=== PATIENT | male | born 1970 | race African-American/Black ===

== ENCOUNTER 2016-04-28 05:02 | Inpatient (IN) | payer MEDICARE, MEDICAID ==
[~2016-04-28] VITALS: Ht 188 cm; Wt 98.9 kg
[~2016-04-28 05:02] MED LIST: ALBU6.7H INH; ALBU8.5H5 INH; AMLO5TAB2 PO; AMOX400S16 PO; ASPI325T4 PO; CALC-666 PO; CARV3.1212 PO; FAMO20TA37 PO; FOLI-17 PO; FURO-93 PO; FURO20TA3 PO; HYDR-3341 PO; HYDR25TA6 PO; LEVO25TA4 PO; LISI5TAB7 PO; METO25TA35 PO; MULT-750 PO; NICO1PAT4 TD; NITR0.4T SL; OLAN10TA9 PO; OLAN20TA3 PO; OMEP10CA4 PO; OXYB5TAB7 PO; PANT40TA3 PO; SIMV20TA3 PO; SPIR25TA3 PO; SUCR1ORA11 PO; THIA100T6 PO
[2016-04-28] MEDS ORDERED: SODIUM CHLORIDE 0.9% 1,000 ML IV ONE ×2 (05:05→14:33)
[2016-04-28] MEDS ORDERED: SODIUM CHLORIDE FLUSH 10ML SYR IVF ONE (05:30)
[2016-04-28] MEDS ORDERED: ONDANSETRON 2MG/ML, 2ML IVPush ONE ×2 (05:30→08:30)
[2016-04-28] MEDS ORDERED: SODIUM CHLORIDE 0.9% 1,000ML IVBOLUS ONE ×2 (05:30→09:30)
[2016-04-28] MEDS ORDERED: THIAMINE 100 MG in SODIUM CHLORIDE 0.9% 50 ML IVPB ONE (05:30)
[2016-04-28 05:54] LABS: HEMOGLOBIN 12.7 g/dL (13.7-18.0)
[2016-04-28 06:06] LABS: ASPARTATE AMINO TRANSFERASE 33 U/L (15-37); BLOOD UREA NITROGEN 7 mg/dL (7-18)
[2016-04-28] MEDS ORDERED: HALOPERIDOL 5 MG/ML ONE (08:27)
[2016-04-28] MEDS ORDERED: ONDANSETRON 2MG/ML, 2ML ONE (08:27)
[2016-04-28] MEDS ORDERED: HALOPERIDOL 5 MG/ML IVPush ONE (08:30)
[2016-04-28] MEDS ORDERED: LEVOFLOXACIN/PMX 750MG/150ML 150 ML IVPB ONE (14:30)
[2016-04-28] MEDS ORDERED: SODIUM CHLORIDE FLUSH 10ML SYR IVF PRN (15:00)
[2016-04-28] MEDS ORDERED: MORPHINE SULFATE 4 MG/ML, 1ML IVPush PRN (15:30)
[2016-04-28] MEDS ORDERED: NITROGLYCERIN 0.4 MG BOTTLE (25 TABS) SL SCH (15:30)
[2016-04-28] MEDS ORDERED: ONDANSETRON 2MG/ML, 2ML IVP PRN (15:30)
[2016-04-28] MEDS ORDERED: LORazepam 2 MG/ML, 1ML IV PRN ×5 (15:30)
[2016-04-28] MEDS ORDERED: DOCUSATE 100 MG CAPSULE PO PRN (15:30)
[2016-04-28] MEDS ORDERED: ALBUTEROL SULFATE 2.5 MG/3 ML NPPB PRN (16:30)
[2016-04-28] MEDS: SODIUM CHLORIDE 0.9% 1,000 ML IV SCH (18:00)
[2016-04-28] MEDS: AMPICILLIN/SULBACTAM 3 GM in SODIUM CHLORIDE 0.9% 100 ML IV SCH (18:00)
[2016-04-28] MEDS: GUAIFENESIN 200 MG TABLET PO SCH ×2 (18:00→21:00)
[2016-04-28 20:19] VITALS: BP 109/69
[2016-04-28] MEDS: HYDROcodone/APAP 5/325 TABLET PO PRN (22:51)
[2016-04-28] MEDS: OLANZAPINE 10 MG TABLET PO SCH (22:52)
[2016-04-28] MEDS: FAMOTIDINE 20 MG TABLET PO SCH (22:52)
[2016-04-28] MEDS: METOPROLOL TARTRATE 25 MG TABLET PO SCH (22:52)
[2016-04-28] MEDS: SIMVASTATIN 20 MG TABLET PO SCH (22:52)
[2016-04-28] MEDS: ENOXAPARIN 40 MG/0.4 ML SQ SCH (22:53)
[2016-04-29 02:00] VITALS: BP 124/82
[2016-04-29] MEDS: SODIUM CHLORIDE 0.9% 1,000 ML IV SCH (02:22)
[2016-04-29] MEDS: AMPICILLIN/SULBACTAM 3 GM in SODIUM CHLORIDE 0.9% 100 ML IV SCH ×3 (02:22→19:41)
[2016-04-29] MEDS: GUAIFENESIN 200 MG TABLET PO SCH ×4 (06:00→20:15)
[2016-04-29 06:28] LABS: HEMOGLOBIN 10.7 g/dL (13.7-18.0)
[2016-04-29 06:33] LABS: BLOOD UREA NITROGEN 8 mg/dL (7-18)
[2016-04-29 08:16] VITALS: BP 96/54
[2016-04-29 09:00] VITALS: BP 145/90
[2016-04-29] MEDS: METOPROLOL TARTRATE 25 MG TABLET PO SCH ×2 (09:04→20:14)
[2016-04-29] MEDS: FAMOTIDINE 20 MG TABLET PO SCH ×2 (09:04→20:16)
[2016-04-29] MEDS: THIAMINE 100MG TABLET PO SCH (09:04)
[2016-04-29] MEDS: FOLIC ACID 1 MG TABLET PO SCH (09:05)
[2016-04-29] MEDS: AMLODIPINE 5 MG TABLET PO SCH (09:05)
[2016-04-29 14:08] VITALS: BP 130/87
[2016-04-29 19:53] VITALS: BP 116/68
[2016-04-29] MEDS: ENOXAPARIN 40 MG/0.4 ML SQ SCH (20:12)
[2016-04-29] MEDS: SIMVASTATIN 20 MG TABLET PO SCH (20:16)
[2016-04-29] MEDS: OLANZAPINE 10 MG TABLET PO SCH (20:17)
[2016-04-29] MEDS: HYDROcodone/APAP 5/325 TABLET PO PRN (20:42)
[2016-04-30 02:23] VITALS: BP 124/80
[2016-04-30] MEDS: AMPICILLIN/SULBACTAM 3 GM in SODIUM CHLORIDE 0.9% 100 ML IV SCH ×2 (03:21→11:08)
[2016-04-30] MEDS: GUAIFENESIN 200 MG TABLET PO SCH ×2 (05:56→11:00)
[2016-04-30 06:02] LABS: HEMOGLOBIN 11.1 g/dL (13.7-18.0)
[2016-04-30 06:04] LABS: BLOOD UREA NITROGEN 6 mg/dL (7-18)
[2016-04-30 07:37] VITALS: BP 141/93
[2016-04-30] MEDS: FAMOTIDINE 20 MG TABLET PO SCH (07:45)
[2016-04-30] MEDS: FOLIC ACID 1 MG TABLET PO SCH (07:46)
[2016-04-30] MEDS: AMLODIPINE 5 MG TABLET PO SCH (07:46)
[2016-04-30] MEDS: METOPROLOL TARTRATE 25 MG TABLET PO SCH (07:46)
[2016-04-30] MEDS: THIAMINE 100MG TABLET PO SCH (07:47)
[2016-04-30] MEDS ORDERED: METO25TA35 PO (09:14)
[2016-04-30] MEDS ORDERED: AMLO5TAB2 PO (09:14)
[2016-04-30] MEDS ORDERED: OLAN10TA9 PO (09:14)
[2016-04-30] MEDS ORDERED: AMOX1TAB64 PO (09:14)
== END 2016-04-30 15:19 | disposition home or self-care (01) | DRG 177 ==
LOC: ED 08:47 → EDIP 14:34 → 4EST 15:47 → 4WST 23:13 → DCLOUNGE 04-30 15:15
PROVIDERS: ADMIT Internal Medicine; ATTEND Internal Medicine
DX: J69.0 Pneumonitis due to inhalation of food and vomit (principal); J96.01 Acute respiratory failure with hypoxia; F10.129 Alcohol abuse with intoxication, unspecified; I25.10 Atherosclerotic heart disease of native coronary artery without angina pectoris; F32.9 Major depressive disorder, single episode, unspecified; F99 Mental disorder, not otherwise specified; K21.9 Gastro-esophageal reflux disease without esophagitis; Y90.9 Presence of alcohol in blood, level not specified; E11.9 Type 2 diabetes mellitus without complications; I50.9 Heart failure, unspecified; I11.0 Hypertensive heart disease with heart failure; Z82.49 Family history of ischemic heart disease and other diseases of the circulatory system; Z91.19 Patient's noncompliance with other medical treatment and regimen; Z80.9 Family history of malignant neoplasm, unspecified; Z88.8 Allergy status to other drugs, medicaments and biological substances
CPT/HCPCS: 36415; 71010; 80048; 80053; 80307; 83605; 83690; 84145; 85025; 87040; 96365; 96366; 96375; J0295; J1650; J2405; J3411; J1630; J2060; J7030

== ENCOUNTER 2016-05-26 12:26 | Observation (INO) | payer MEDICAID, MEDICARE ==
[~2016-05-26] VITALS: Ht 193 cm; Wt 89.4 kg
[~2016-05-26 12:26] MED LIST changes: +AMOX1TAB64 PO
[2016-05-26 13:28] LABS: HEMOGLOBIN 12.4 g/dL (13.7-18.0)
[2016-05-26 13:34] LABS: BLOOD UREA NITROGEN 10 mg/dL (7-18)
[2016-05-26 13:36] LABS: ACETAMINOPHEN < 2 mcg/mL (10-30)
[2016-05-26 13:49] LABS: DAU SCREEN DISCLAIMER
[2016-05-26] MEDS ORDERED: POLYETHYLENE GLYCOL 17 GM PACKET PO PRN (17:30)
[2016-05-26] MEDS ORDERED: ZIPRASIDONE 20MG CAPSULE PO PRN (17:30)
[2016-05-26 19:36] VITALS: BP 155/90
[2016-05-26] MEDS ORDERED: METOPROLOL TARTRATE 25 MG TABLET PO SCH (21:00)
[2016-05-26] MEDS ORDERED: SIMVASTATIN 20 MG TABLET PO SCH (21:00)
[2016-05-26] MEDS ORDERED: OLANZAPINE 10 MG TABLET PO SCH (21:30)
[2016-05-27] MEDS ORDERED: AMLODIPINE 5 MG TABLET PO SCH (09:00)
[2016-05-27] MEDS ORDERED: OLANZAPINE 10 MG TABLET PO SCH ×2 (09:00)
[2016-05-27] MEDS ORDERED: SENNA/DOCUSATE TABLET PO SCH (09:00)
== END 2016-05-27 00:50 ==
LOC: ED 13:33 → EDIP 17:10 → 3E 19:45
PROVIDERS: ADMIT Hospitalist; ATTEND Hospitalist
DX: R45.851 Suicidal ideations (principal); I10 Essential (primary) hypertension; K21.9 Gastro-esophageal reflux disease without esophagitis; F20.9 Schizophrenia, unspecified; D64.9 Anemia, unspecified; F10.10 Alcohol abuse, uncomplicated; E11.9 Type 2 diabetes mellitus without complications; Z87.891 Personal history of nicotine dependence; Z82.49 Family history of ischemic heart disease and other diseases of the circulatory system; Z80.9 Family history of malignant neoplasm, unspecified; Z91.19 Patient's noncompliance with other medical treatment and regimen
CPT/HCPCS: 36415; 80048; 80307; 80329; 82040; 84439; 84443; 85025; 85610; 99285; G0378; 96374; G0480

== ENCOUNTER 2016-06-18 00:07 | Inpatient (IN) | payer MEDICARE ==
[~2016-06-18] VITALS: Ht 193 cm; Wt 94.0 kg
[2016-06-18] VITALS (11 sets, daily range): BP systolic 116–161; BP diastolic 77–106
[2016-06-18] MEDS ORDERED: SODIUM CHLORIDE 0.9% 1,000ML IVBOLUS ONE (00:30)
[2016-06-18] MEDS ORDERED: LOSA50TA6 PO (00:54)
[2016-06-18 01:12] LABS: ASPARTATE AMINO TRANSFERASE 42 U/L (15-37); BLOOD UREA NITROGEN 11 mg/dL (7-18); IS PT STATUS REG ER OR PRE ER? YES
[2016-06-18 01:14] LABS: ACETAMINOPHEN 4 mcg/mL (10-30)
[2016-06-18 01:27] LABS: DAU SCREEN DISCLAIMER
[2016-06-18] MEDS ORDERED: ASPIRIN 81 MG TABLET CHEW ONE (01:52)
[2016-06-18] MEDS ORDERED: ASPIRIN 81 MG TABLET CHEW PO ONE (02:00)
[2016-06-18] MEDS ORDERED: SODIUM CHLORIDE 0.9% 1,000 ML IV ONE (03:07)
[2016-06-18] MEDS ORDERED: ONDANSETRON 2MG/ML, 2ML IVPush PRN (03:30)
[2016-06-18] MEDS ORDERED: ONDANSETRON 2MG/ML, 2ML IVP PRN (05:00)
[2016-06-18] MEDS ORDERED: MAGNESIUM SULFATE PMX 2GM/50ML 50 ML IV ONE (05:00)
[2016-06-18] MEDS: SODIUM CHLORIDE 0.9% 1,000 ML IV SCH ×3 (06:04→21:29)
[2016-06-18] MEDS: ENOXAPARIN 40 MG/0.4 ML SQ SCH (06:04)
[2016-06-18] MEDS: THIAMINE 100 MG, MVI ADULT 10 ML, FOLIC ACID 1 MG in D5%-0.9% NACL 1,000 ML IV SCH (06:33)
[2016-06-18 07:27] LABS: IS PT STATUS REG ER OR PRE ER? NO
[2016-06-18 12:33] LABS: IS PT STATUS REG ER OR PRE ER? NO
[2016-06-18] MEDS ORDERED: NITROGLYCERIN SINGLE TAB 0.4 MG SL ONE (22:30)
[2016-06-19 04:01] VITALS: BP 143/93
[2016-06-19] MEDS: THIAMINE 100 MG, MVI ADULT 10 ML, FOLIC ACID 1 MG in D5%-0.9% NACL 1,000 ML IV SCH (04:52)
[2016-06-19] MEDS: ENOXAPARIN 40 MG/0.4 ML SQ SCH (04:58)
[2016-06-19 05:53] LABS: ASPARTATE AMINO TRANSFERASE 30 U/L (15-37); BLOOD UREA NITROGEN 4 mg/dL (7-18)
[2016-06-19 06:50] VITALS: BP 154/99
[2016-06-19] MEDS: AMLODIPINE 5 MG TABLET PO SCH (09:05)
[2016-06-19] MEDS: LOSARTAN 50MG TABLET PO SCH (09:05)
[2016-06-19] MEDS: METOPROLOL TARTRATE 25 MG TABLET PO SCH ×2 (09:06→20:49)
[2016-06-19 12:26] VITALS: BP 127/85
[2016-06-19 16:36] VITALS: BP 156/100
[2016-06-19 20:14] VITALS: BP 175/112
[2016-06-19] MEDS: SIMVASTATIN 20 MG TABLET PO SCH (20:49)
[2016-06-19 20:51] VITALS: BP 145/100
[2016-06-20 00:04] VITALS: BP 158/106
[2016-06-20 00:10] VITALS: BP 150/95
[2016-06-20] MEDS: ENOXAPARIN 40 MG/0.4 ML SQ SCH (05:07)
[2016-06-20] MEDS: THIAMINE 100 MG, MVI ADULT 10 ML, FOLIC ACID 1 MG in D5%-0.9% NACL 1,000 ML IV SCH (05:07)
[2016-06-20 07:19] VITALS: BP 125/83
[2016-06-20] MEDS: AMLODIPINE 5 MG TABLET PO SCH (10:14)
[2016-06-20] MEDS: MULTIVITAMIN 1 TABLET PO SCH (10:14)
[2016-06-20] MEDS: FOLIC ACID 1 MG TABLET PO SCH (10:14)
[2016-06-20] MEDS: METOPROLOL TARTRATE 25 MG TABLET PO SCH ×2 (10:14→20:43)
[2016-06-20] MEDS: THIAMINE 100MG TABLET PO SCH (10:14)
[2016-06-20] MEDS: LOSARTAN 50MG TABLET PO SCH (10:14)
[2016-06-20 13:09] VITALS: BP 156/114
[2016-06-20] MEDS ORDERED: FOLI-17 PO (17:50)
[2016-06-20] MEDS ORDERED: MULT1TAB60 PO (17:50)
[2016-06-20] MEDS ORDERED: THIA100T6 PO (17:50)
[2016-06-20] MEDS: OLANZAPINE 10 MG TABLET PO SCH (20:43)
[2016-06-20] MEDS: SIMVASTATIN 20 MG TABLET PO SCH (20:43)
[2016-06-20 21:00] VITALS: BP 163/113
[2016-06-21] MEDS ORDERED: hydrALAzine 20 MG/ML, 1ML IV PRN (01:30)
[2016-06-21] MEDS ORDERED: CALCIUM CARBONATE 500 MG TAB.CHEW PO PRN (01:30)
[2016-06-21 02:00] VITALS: BP 163/121
[2016-06-21] MEDS: FAMOTIDINE 20 MG TABLET PO SCH ×3 (02:00→21:30)
[2016-06-21 04:17] VITALS: BP 125/67
[2016-06-21 07:26] VITALS: BP 128/82
[2016-06-21] MEDS: AMLODIPINE 5 MG TABLET PO SCH (09:44)
[2016-06-21] MEDS: FOLIC ACID 1 MG TABLET PO SCH (09:44)
[2016-06-21] MEDS: LOSARTAN 50MG TABLET PO SCH (09:44)
[2016-06-21] MEDS: THIAMINE 100MG TABLET PO SCH (09:44)
[2016-06-21] MEDS: METOPROLOL TARTRATE 25 MG TABLET PO SCH ×2 (09:44→21:30)
[2016-06-21] MEDS: MULTIVITAMIN 1 TABLET PO SCH (09:45)
[2016-06-21] MEDS: ENOXAPARIN 40 MG/0.4 ML SQ SCH (09:45)
[2016-06-21 13:45] VITALS: BP 125/85
[2016-06-21] MEDS: SIMVASTATIN 20 MG TABLET PO SCH (21:29)
[2016-06-21] MEDS: OLANZAPINE 10 MG TABLET PO SCH (21:30)
[2016-06-21 21:31] VITALS: BP 152/103
[2016-06-22 02:41] VITALS: BP 121/80
[2016-06-22 07:41] VITALS: BP 121/90
[2016-06-22 09:00] VITALS: BP 107/68
[2016-06-22] MEDS: FAMOTIDINE 20 MG TABLET PO SCH ×2 (09:02→21:34)
[2016-06-22] MEDS: METOPROLOL TARTRATE 25 MG TABLET PO SCH ×2 (09:02→21:34)
[2016-06-22] MEDS: AMLODIPINE 5 MG TABLET PO SCH (09:02)
[2016-06-22] MEDS: ENOXAPARIN 40 MG/0.4 ML SQ SCH (09:02)
[2016-06-22] MEDS: MULTIVITAMIN 1 TABLET PO SCH (09:02)
[2016-06-22] MEDS: THIAMINE 100MG TABLET PO SCH (09:02)
[2016-06-22] MEDS: LOSARTAN 50MG TABLET PO SCH (09:02)
[2016-06-22] MEDS: FOLIC ACID 1 MG TABLET PO SCH (09:02)
[2016-06-22 15:45] VITALS: BP 128/81
[2016-06-22 20:12] VITALS: BP 114/76
[2016-06-22] MEDS: OLANZAPINE 10 MG TABLET PO SCH (21:35)
[2016-06-22] MEDS: SIMVASTATIN 20 MG TABLET PO SCH (21:36)
[2016-06-23 08:00] VITALS: BP 107/72
[2016-06-23] MEDS: LOSARTAN 50MG TABLET PO SCH (09:37)
[2016-06-23] MEDS: ENOXAPARIN 40 MG/0.4 ML SQ SCH (09:37)
[2016-06-23] MEDS: FAMOTIDINE 20 MG TABLET PO SCH ×2 (09:37→21:37)
[2016-06-23] MEDS: FOLIC ACID 1 MG TABLET PO SCH (09:37)
[2016-06-23] MEDS: THIAMINE 100MG TABLET PO SCH (09:37)
[2016-06-23] MEDS: AMLODIPINE 5 MG TABLET PO SCH (09:37)
[2016-06-23] MEDS: METOPROLOL TARTRATE 25 MG TABLET PO SCH ×2 (09:38→21:40)
[2016-06-23] MEDS: MULTIVITAMIN 1 TABLET PO SCH (09:38)
[2016-06-23 16:52] VITALS: BP 117/81
[2016-06-23 19:35] VITALS: BP 95/65
[2016-06-23 21:33] VITALS: BP 138/77
[2016-06-23] MEDS: SIMVASTATIN 20 MG TABLET PO SCH (21:37)
[2016-06-23] MEDS: OLANZAPINE 10 MG TABLET PO SCH (21:37)
[2016-06-24 07:52] VITALS: BP 116/82
[2016-06-24] MEDS: ENOXAPARIN 40 MG/0.4 ML SQ SCH (08:25)
[2016-06-24] MEDS: FOLIC ACID 1 MG TABLET PO SCH (08:25)
[2016-06-24] MEDS: FAMOTIDINE 20 MG TABLET PO SCH ×2 (08:25→21:10)
[2016-06-24] MEDS: METOPROLOL TARTRATE 25 MG TABLET PO SCH ×2 (08:25→21:10)
[2016-06-24] MEDS: MULTIVITAMIN 1 TABLET PO SCH (08:26)
[2016-06-24] MEDS: THIAMINE 100MG TABLET PO SCH (08:26)
[2016-06-24] MEDS: AMLODIPINE 5 MG TABLET PO SCH (08:26)
[2016-06-24] MEDS: LOSARTAN 50MG TABLET PO SCH (09:59)
[2016-06-24 20:03] VITALS: BP 129/88
[2016-06-24] MEDS: SIMVASTATIN 20 MG TABLET PO SCH (21:10)
[2016-06-24] MEDS: OLANZAPINE 10 MG TABLET PO SCH (21:10)
[2016-06-25 07:23] VITALS: BP 113/76
== END 2016-06-25 08:10 | DRG 917 ==
LOC: ED 00:37 → EDIP 03:07 → 5SO 04:31 → 4EST 22:50 → 3E 06-22 14:30
PROVIDERS: ADMIT Internal Medicine; ATTEND Internal Medicine
DX: T46.5X2A Poisoning by other antihypertensive drugs, intentional self-harm, initial encounter (principal); G92 Toxic encephalopathy; I50.22 Chronic systolic (congestive) heart failure; I42.9 Cardiomyopathy, unspecified; E78.5 Hyperlipidemia, unspecified; F10.220 Alcohol dependence with intoxication, uncomplicated; F15.10 Other stimulant abuse, uncomplicated; F20.9 Schizophrenia, unspecified; I11.0 Hypertensive heart disease with heart failure; J45.909 Unspecified asthma, uncomplicated; K21.9 Gastro-esophageal reflux disease without esophagitis; F32.9 Major depressive disorder, single episode, unspecified; T46.1X2A Poisoning by calcium-channel blockers, intentional self-harm, initial encounter; Y92.89 Other specified places as the place of occurrence of the external cause; Z79.899 Other long term (current) drug therapy; Z88.8 Allergy status to other drugs, medicaments and biological substances; Z71.51 Drug abuse counseling and surveillance of drug abuser
CPT/HCPCS: 36415; 71010; 80053; 80307; 80329; 81003; 83735; 84100; 84484; 85025; 93005; 96360; J1650; J2405; J3411; J7042; G0480; J0360; J3475; J7030

== ENCOUNTER 2016-07-07 13:53 | Observation (INO) | payer MEDICARE, MEDICAID ==
[~2016-07-07] VITALS: Ht 190.5 cm; Wt 105.0 kg
[~2016-07-07 13:53] MED LIST changes: +LOSA50TA6 PO; +MULT1TAB60 PO
[2016-07-07 14:45] LABS: ASPARTATE AMINO TRANSFERASE 34 U/L (15-37); BLOOD UREA NITROGEN 10 mg/dL (7-18)
[2016-07-07 14:48] LABS: ACETAMINOPHEN < 2 mcg/mL (10-30)
[2016-07-07 18:03] LABS: DAU SCREEN DISCLAIMER
[2016-07-07] MEDS ORDERED: NITROGLYCERIN 0.4 MG BOTTLE (25 TABS) SL SCH (23:30)
[2016-07-07] MEDS ORDERED: LORazepam 1MG TABLET PO PRN (23:30)
[2016-07-07] MEDS ORDERED: ZIPRASIDONE 20 MG INJ IM PRN (23:30)
[2016-07-07] MEDS ORDERED: ONDANSETRON ODT 4 MG PO PRN (23:30)
[2016-07-07] MEDS ORDERED: ACETAMINOPHEN 325 MG TABLET PO PRN (23:30)
[2016-07-07] MEDS ORDERED: HALOPERIDOL 5 MG TABLET PO PRN (23:30)
[2016-07-07] MEDS ORDERED: METOPROLOL TARTRATE 50 MG TABLET ONE (23:50)
[2016-07-07] MEDS: METOPROLOL TARTRATE 25 MG TABLET PO SCH (23:55)
[2016-07-08] MEDS: ONDANSETRON 2MG/ML, 2ML IM PRN ×2 (02:25→09:17)
[2016-07-08 07:47] VITALS: BP 165/91
[2016-07-08] MEDS: THIAMINE 100MG TABLET PO SCH (08:45)
[2016-07-08] MEDS: MULTIVITAMIN 1 TABLET PO SCH (08:45)
[2016-07-08] MEDS: FOLIC ACID 1 MG TABLET PO SCH (08:45)
[2016-07-08] MEDS: METOPROLOL TARTRATE 25 MG TABLET PO SCH ×2 (08:46→21:22)
[2016-07-08] MEDS: LOSARTAN 50MG TABLET PO SCH (08:46)
[2016-07-08] MEDS: AMLODIPINE 5 MG TABLET PO SCH (08:46)
[2016-07-08] MEDS ORDERED: DEXTROSE 4 GM TAB.CHEW PO PRN (13:30)
[2016-07-08] MEDS ORDERED: DEXTROSE 50%, 50ML SYRINGE IVPush PRN (13:30)
[2016-07-08] MEDS ORDERED: GLUCAGON 1 MG IM PRN (13:30)
[2016-07-08 16:19] VITALS: BP 126/92
[2016-07-08 19:38] VITALS: BP 158/104
[2016-07-08] MEDS ORDERED: SODIUM CHLORIDE FLUSH 10ML SYR IVF SCH (21:00)
[2016-07-08] MEDS ORDERED: SIMVASTATIN 20 MG TABLET PO SCH (21:00)
[2016-07-08] MEDS ORDERED: OLANZAPINE 10 MG TABLET PO SCH (21:00)
[2016-07-09 08:30] VITALS: BP 116/79
[2016-07-09] MEDS: THIAMINE 100MG TABLET PO SCH (08:57)
[2016-07-09] MEDS: MULTIVITAMIN 1 TABLET PO SCH (08:57)
[2016-07-09] MEDS: METOPROLOL TARTRATE 25 MG TABLET PO SCH (08:58)
[2016-07-09] MEDS: LOSARTAN 50MG TABLET PO SCH (08:58)
[2016-07-09] MEDS: AMLODIPINE 5 MG TABLET PO SCH (08:59)
[2016-07-09] MEDS: FOLIC ACID 1 MG TABLET PO SCH (09:00)
== END 2016-07-09 12:42 | disposition short-term general hospital (02) ==
LOC: ED 18:07 → EDIP 22:21 → 3E 07-08 00:03
PROVIDERS: ADMIT Hospitalist; ATTEND Hospitalist
DX: R45.851 Suicidal ideations (principal); F20.9 Schizophrenia, unspecified; E11.649 Type 2 diabetes mellitus with hypoglycemia without coma; F10.220 Alcohol dependence with intoxication, uncomplicated; F33.9 Major depressive disorder, recurrent, unspecified; E78.5 Hyperlipidemia, unspecified; K21.9 Gastro-esophageal reflux disease without esophagitis; I50.20 Unspecified systolic (congestive) heart failure; I11.0 Hypertensive heart disease with heart failure; I25.10 Atherosclerotic heart disease of native coronary artery without angina pectoris; I45.81 Long QT syndrome; I42.9 Cardiomyopathy, unspecified; F15.90 Other stimulant use, unspecified, uncomplicated; Z91.19 Patient's noncompliance with other medical treatment and regimen; Z87.19 Personal history of other diseases of the digestive system; Z91.5 Personal history of self-harm
CPT/HCPCS: 36415; 80053; 80307; 80329; 82962; 85025; 93005; 96372; 99285; G0378; J2405; G0480

== ENCOUNTER 2016-08-07 20:33 | Observation (INO) | payer MEDICARE, MEDICAID ==
[~2016-08-07] VITALS: Ht 193 cm; Wt 97.0 kg
[2016-08-07 21:31] LABS: BLOOD UREA NITROGEN 9 mg/dL (7-18)
[2016-08-07 21:34] LABS: ASPARTATE AMINO TRANSFERASE 55 U/L (15-37)
[2016-08-07 21:36] LABS: ACETAMINOPHEN < 2 mcg/mL (10-30)
[2016-08-07 21:53] LABS: DAU SCREEN DISCLAIMER
[2016-08-08] MEDS ORDERED: BISACODYL 10 MG SUPP PR PRN (10:00)
[2016-08-08] MEDS ORDERED: ONDANSETRON ODT 4 MG PO PRN (10:00)
[2016-08-08] MEDS ORDERED: POLYETHYLENE GLYCOL 17 GM PACKET PO PRN (10:00)
[2016-08-08] MEDS ORDERED: DOCUSATE 100 MG CAPSULE PO PRN (10:00)
[2016-08-08] MEDS ORDERED: ACETAMINOPHEN 325 MG TABLET PO PRN (10:00)
[2016-08-08] MEDS ORDERED: ALBUTEROL/IPRATROPIUM 2.5MG/0.5MG, 3 ML NEB PRN (10:00)
[2016-08-08] MEDS: METOPROLOL TARTRATE 25 MG TABLET PO SCH ×2 (15:19→21:00)
[2016-08-08] MEDS: LOSARTAN 50MG TABLET PO SCH (15:20)
[2016-08-08] MEDS: AMLODIPINE 5 MG TABLET PO SCH (15:20)
[2016-08-08] MEDS ORDERED: THIAMINE 100MG TABLET ONE (15:23)
[2016-08-08] MEDS: THIAMINE 100MG TABLET PO SCH (15:25)
[2016-08-08] MEDS: OLANZAPINE 5 MG TABLET PO SCH ×2 (15:25→21:00)
[2016-08-08] MEDS: FOLIC ACID 1 MG TABLET PO SCH (15:25)
[2016-08-08] MEDS: MULTIVITAMIN 1 TABLET PO SCH (15:25)
[2016-08-08] MEDS: NICOTINE 14MG/24 HR PATCH.TD24 TD SCH (17:30)
[2016-08-08] MEDS: SIMVASTATIN 20 MG TABLET PO SCH (21:00)
[2016-08-09 03:07] VITALS: BP 143/95
[2016-08-09 07:43] VITALS: BP 116/80
[2016-08-09] MEDS: OLANZAPINE 5 MG TABLET PO SCH ×2 (10:03→20:44)
[2016-08-09] MEDS: LOSARTAN 50MG TABLET PO SCH (10:03)
[2016-08-09] MEDS: FOLIC ACID 1 MG TABLET PO SCH (10:03)
[2016-08-09] MEDS: MULTIVITAMIN 1 TABLET PO SCH (10:04)
[2016-08-09] MEDS: METOPROLOL TARTRATE 25 MG TABLET PO SCH ×2 (10:04→20:44)
[2016-08-09] MEDS: AMLODIPINE 5 MG TABLET PO SCH (10:04)
[2016-08-09] MEDS: THIAMINE 100MG TABLET PO SCH (10:04)
[2016-08-09] MEDS: NICOTINE 14MG/24 HR PATCH.TD24 TD SCH (16:53)
[2016-08-09 19:32] VITALS: BP 111/73
[2016-08-09] MEDS: SIMVASTATIN 20 MG TABLET PO SCH (20:44)
[2016-08-10 08:23] VITALS: BP 111/79
[2016-08-10] MEDS: FOLIC ACID 1 MG TABLET PO SCH (09:00)
[2016-08-10] MEDS: LOSARTAN 50MG TABLET PO SCH (09:34)
[2016-08-10] MEDS: MULTIVITAMIN 1 TABLET PO SCH (09:34)
[2016-08-10] MEDS: AMLODIPINE 5 MG TABLET PO SCH (09:34)
[2016-08-10] MEDS: THIAMINE 100MG TABLET PO SCH (09:34)
[2016-08-10] MEDS: OLANZAPINE 5 MG TABLET PO SCH ×2 (09:34→20:48)
[2016-08-10] MEDS: METOPROLOL TARTRATE 25 MG TABLET PO SCH ×2 (09:34→20:48)
[2016-08-10 19:49] VITALS: BP 130/87
[2016-08-10] MEDS: SIMVASTATIN 20 MG TABLET PO SCH (20:48)
[2016-08-11 08:25] VITALS: BP 130/84
[2016-08-11] MEDS: AMLODIPINE 5 MG TABLET PO SCH (08:56)
[2016-08-11] MEDS: METOPROLOL TARTRATE 25 MG TABLET PO SCH ×2 (08:56→20:10)
[2016-08-11] MEDS: THIAMINE 100MG TABLET PO SCH (08:56)
[2016-08-11] MEDS: FOLIC ACID 1 MG TABLET PO SCH (08:56)
[2016-08-11] MEDS: LOSARTAN 50MG TABLET PO SCH (08:57)
[2016-08-11] MEDS: OLANZAPINE 5 MG TABLET PO SCH ×2 (08:57→20:10)
[2016-08-11] MEDS: MULTIVITAMIN 1 TABLET PO SCH (09:00)
[2016-08-11 20:01] VITALS: BP 143/83
[2016-08-11] MEDS: SIMVASTATIN 20 MG TABLET PO SCH (20:10)
[2016-08-11 21:42] VITALS: BP 122/82
[2016-08-12] MEDS: THIAMINE 100MG TABLET PO SCH (07:54)
[2016-08-12] MEDS: METOPROLOL TARTRATE 25 MG TABLET PO SCH ×2 (07:54→20:38)
[2016-08-12] MEDS: MULTIVITAMIN 1 TABLET PO SCH (07:54)
[2016-08-12] MEDS: OLANZAPINE 5 MG TABLET PO SCH ×2 (07:54→20:37)
[2016-08-12] MEDS: LOSARTAN 50MG TABLET PO SCH (07:54)
[2016-08-12] MEDS: FOLIC ACID 1 MG TABLET PO SCH (07:55)
[2016-08-12] MEDS: AMLODIPINE 5 MG TABLET PO SCH (07:55)
[2016-08-12 08:13] VITALS: BP 114/76
[2016-08-12 19:53] VITALS: BP 117/78
[2016-08-12] MEDS: SIMVASTATIN 20 MG TABLET PO SCH (20:38)
[2016-08-13] MEDS: METOPROLOL TARTRATE 25 MG TABLET PO SCH (07:38)
[2016-08-13] MEDS: LOSARTAN 50MG TABLET PO SCH (07:38)
[2016-08-13] MEDS: FOLIC ACID 1 MG TABLET PO SCH (07:38)
[2016-08-13] MEDS: THIAMINE 100MG TABLET PO SCH (07:38)
[2016-08-13] MEDS: MULTIVITAMIN 1 TABLET PO SCH (07:38)
[2016-08-13] MEDS: AMLODIPINE 5 MG TABLET PO SCH (07:38)
[2016-08-13] MEDS: OLANZAPINE 5 MG TABLET PO SCH (07:39)
[2016-08-13 08:31] VITALS: BP 112/74
== END 2016-08-13 18:31 ==
LOC: ED 23:15 → EDIP 08-08 09:44 → 3E 08-09 03:02
PROVIDERS: ADMIT Family Medicine; ATTEND Family Medicine
DX: R45.851 Suicidal ideations (principal); F20.9 Schizophrenia, unspecified; R44.0 Auditory hallucinations; R00.0 Tachycardia, unspecified; F33.9 Major depressive disorder, recurrent, unspecified; I11.0 Hypertensive heart disease with heart failure; I50.20 Unspecified systolic (congestive) heart failure; E78.5 Hyperlipidemia, unspecified; K21.9 Gastro-esophageal reflux disease without esophagitis; I42.9 Cardiomyopathy, unspecified; I25.10 Atherosclerotic heart disease of native coronary artery without angina pectoris; F15.90 Other stimulant use, unspecified, uncomplicated; F10.220 Alcohol dependence with intoxication, uncomplicated; E11.9 Type 2 diabetes mellitus without complications; F17.200 Nicotine dependence, unspecified, uncomplicated; I25.2 Old myocardial infarction; J45.909 Unspecified asthma, uncomplicated; Z87.19 Personal history of other diseases of the digestive system; Z91.19 Patient's noncompliance with other medical treatment and regimen; Z91.5 Personal history of self-harm
CPT/HCPCS: 36415; 80053; 80307; 80329; 85025; 93005; 99285; G0378; G0480

== ENCOUNTER 2016-09-16 19:27 | Inpatient (IN) | payer OTHER, MEDICARE, MEDICAID ==
[~2016-09-16] VITALS: Ht 193 cm; Wt 99.7 kg
[2016-09-16] MEDS ORDERED: SODIUM CHLORIDE 0.9% 1,000 ML IV ONE (19:34)
[2016-09-16] MEDS ORDERED: KETOROLAC 30 MG/1 ML ONE (19:41)
[2016-09-16] MEDS ORDERED: LORazepam 2 MG/ML, 1ML ONE (19:41)
[2016-09-16 19:56] LABS: HEMATOCRIT 44.6 % (39.2-51.8); HEMOGLOBIN 14.4 g/dL (13.7-18.0); WHITE BLOOD COUNT 4.8 x10^3/uL (3.4-10)
[2016-09-16 19:57] LABS: DIFF TOTAL CELLS COUNTED 100 CELL DIFF
[2016-09-16] MEDS ORDERED: SODIUM CHLORIDE 0.9% 1,000ML IVBOLUS ONE (20:00)
[2016-09-16] MEDS ORDERED: LORazepam 2 MG/ML, 1ML IVPush ONE (20:00)
[2016-09-16] MEDS ORDERED: KETOROLAC 30 MG/1 ML IVPush ONE (20:00)
[2016-09-16] MEDS ORDERED: SODIUM CHLORIDE FLUSH 10ML SYR IVF ONE (20:00)
[2016-09-16 20:02] LABS: BLOOD UREA NITROGEN 4 mg/dL (7-18)
[2016-09-16 20:07] LABS: IS PT STATUS REG ER OR PRE ER? YES
[2016-09-16 20:15] LABS: VERIFY COUNTS? YES
[2016-09-16] MEDS ORDERED: LABETALOL 5MG/ML, 20ML ONE (20:39)
[2016-09-16] MEDS ORDERED: LABETALOL 5MG/ML, 20ML IVPush ONE (21:00)
[2016-09-16 22:27] LABS: IS PT STATUS REG ER OR PRE ER? YES
[2016-09-16] MEDS ORDERED: METHOCARBAMOL 1,000 MG in DEXTROSE 5% 100 ML IV ONE (23:00)
[2016-09-16] MEDS ORDERED: hydrALAzine 20 MG/ML, 1ML IV ONE (23:00)
[2016-09-16] MEDS ORDERED: hydrALAzine 20 MG/ML, 1ML ONE (23:10)
[2016-09-17 00:14] VITALS: BP 138/93
[2016-09-17] MEDS ORDERED: MAALOX/HYOSCYAMINE/LIDOCAINE 45 ML BTL PO ONE (01:00)
[2016-09-17] MEDS ORDERED: ONDANSETRON 2MG/ML, 2ML IVPush PRN (04:00)
[2016-09-17] MEDS ORDERED: ACETAMINOPHEN 325 MG TABLET PO PRN (04:00)
[2016-09-17 05:03] VITALS: BP 120/84
[2016-09-17 08:28] VITALS: BP 125/69
[2016-09-17] MEDS: ENOXAPARIN 40 MG/0.4 ML SQ SCH (08:28)
[2016-09-17] MEDS ORDERED: KETOROLAC 30 MG/1 ML IVPush PRN (13:00)
[2016-09-17] MEDS ORDERED: KETOROLAC 30 MG/1 ML IVPush SCH (13:00)
[2016-09-17 15:03] VITALS: BP 147/94
[2016-09-17] MEDS: AMLODIPINE 5 MG TABLET PO SCH (16:52)
[2016-09-17] MEDS: FOLIC ACID 1 MG TABLET PO SCH (16:52)
[2016-09-17 20:00] VITALS: BP 137/93
[2016-09-17] MEDS: FAMOTIDINE 20 MG TABLET PO SCH (20:56)
[2016-09-17] MEDS: METOPROLOL TARTRATE 25 MG TABLET PO SCH (20:56)
[2016-09-17] MEDS ORDERED: SIMVASTATIN 20 MG TABLET PO SCH (21:00)
[2016-09-17] MEDS ORDERED: OLANZAPINE 10 MG TABLET PO SCH (21:00)
[2016-09-18 02:00] VITALS: BP 126/77
[2016-09-18] MEDS ORDERED: ASPIRIN 81 MG TABLET EC PO SCH (06:00)
[2016-09-18 06:17] LABS: HEMATOCRIT 41.8 % (39.2-51.8); HEMOGLOBIN 13.4 g/dL (13.7-18.0); WHITE BLOOD COUNT 4.6 x10^3/uL (3.4-10)
[2016-09-18 06:29] LABS: BLOOD UREA NITROGEN 10 mg/dL (7-18)
[2016-09-18 07:23] VITALS: BP 136/88
[2016-09-18] MEDS: METOPROLOL TARTRATE 25 MG TABLET PO SCH (08:15)
[2016-09-18] MEDS: FOLIC ACID 1 MG TABLET PO SCH (08:15)
[2016-09-18] MEDS: ENOXAPARIN 40 MG/0.4 ML SQ SCH (08:15)
[2016-09-18] MEDS: AMLODIPINE 5 MG TABLET PO SCH (08:16)
[2016-09-18] MEDS: FAMOTIDINE 20 MG TABLET PO SCH (08:16)
[2016-09-18] MEDS ORDERED: THIAMINE 100MG TABLET PO SCH (09:00)
[2016-09-18] MEDS ORDERED: LOSARTAN 50MG TABLET PO SCH (09:00)
[2016-09-18] MEDS ORDERED: MULTIVITAMIN 1 TABLET PO SCH (09:00)
[2016-09-18] MEDS ORDERED: LOSA50TA6 PO (09:22)
[2016-09-18] MEDS ORDERED: METO25TA35 PO (09:22)
[2016-09-18] MEDS ORDERED: HYDR-3341 PO (09:22)
[2016-09-18] MEDS ORDERED: AMLO5TAB2 PO (09:22)
[2016-09-18] MEDS ORDERED: SIMV20TA3 PO (09:22)
[2016-09-18] MEDS ORDERED: OLAN10TA9 PO (09:22)
[2016-09-18] MEDS ORDERED: METO25TA9 PO (10:39)
== END 2016-09-18 11:47 | disposition home or self-care (01) | DRG 392 ==
LOC: ED 19:58 → EDIP 22:43 → 5SO 23:38
PROVIDERS: ADMIT Internal Medicine; ATTEND Internal Medicine
DX: K21.9 Gastro-esophageal reflux disease without esophagitis (principal); I50.32 Chronic diastolic (congestive) heart failure; I42.9 Cardiomyopathy, unspecified; I11.0 Hypertensive heart disease with heart failure; I25.10 Atherosclerotic heart disease of native coronary artery without angina pectoris; F14.10 Cocaine abuse, uncomplicated; F10.10 Alcohol abuse, uncomplicated; E78.5 Hyperlipidemia, unspecified; F99 Mental disorder, not otherwise specified; I25.2 Old myocardial infarction; Z91.14 Patient's other noncompliance with medication regimen; Z72.0 Tobacco use; Z71.6 Tobacco abuse counseling; Z91.5 Personal history of self-harm
CPT/HCPCS: 36415; 71010; 80048; 82040; 83735; 84484; 85025; 93005; 93306; 96361; 96365; 96375; J1650; J1885; J0360; J2060; J2800; J7030

== ENCOUNTER 2016-09-21 22:41 | Emergency (ER) | payer MEDICAID, MEDICARE, OTHER ==
[~2016-09-21] VITALS: Ht 193 cm; Wt 100.0 kg
[~2016-09-21 22:41] MED LIST changes: +METO25TA9 PO; +OLANZAPINE 10 MG TABLET PO ONE
[2016-09-21] MEDS ORDERED: RISP3TAB3 PO (23:02)
[2016-09-21] MEDS ORDERED: TRAZ50TA18 PO (23:02)
[2016-09-21 23:30] LABS: HEMATOCRIT 41.5 % (39.2-51.8); HEMOGLOBIN 13.2 g/dL (13.7-18.0); WHITE BLOOD COUNT 4.5 x10^3/uL (3.4-10)
[2016-09-21 23:43] LABS: ASPARTATE AMINO TRANSFERASE 83 U/L (15-37); BLOOD UREA NITROGEN 12 mg/dL (7-18)
[2016-09-21 23:45] LABS: ACETAMINOPHEN < 2 mcg/mL (10-30)
[2016-09-22 04:50] VITALS: BP 128/75
== END 2016-09-22 04:53 | disposition home or self-care (01) ==
LOC: ED 09-22 04:47
DX: F10.229 Alcohol dependence with intoxication, unspecified (principal); F32.9 Major depressive disorder, single episode, unspecified; F17.200 Nicotine dependence, unspecified, uncomplicated; I11.0 Hypertensive heart disease with heart failure; I50.9 Heart failure, unspecified; J45.909 Unspecified asthma, uncomplicated; K22.6 Gastro-esophageal laceration-hemorrhage syndrome; I25.2 Old myocardial infarction; E11.9 Type 2 diabetes mellitus without complications; Z88.8 Allergy status to other drugs, medicaments and biological substances
CPT/HCPCS: 36415; 80053; 80307; 80329; 85025; 99284; G0480

== ENCOUNTER 2017-11-13 19:00 | Inpatient (IN) | payer MEDICARE, MEDICAID ==
[~2017-11-13] VITALS: Ht 188 cm; Wt 95.3 kg
[~2017-11-13 19:00] MED LIST changes: -AMLO5TAB2 PO; +AMLO5TAB7 PO; +ASPI325T17 PO; -ASPI325T4 PO; -LOSA50TA6 PO; +LOSA50TA7 PO; +METO-282 PO; -METO25TA9 PO; +NICO-486 TD; -NICO1PAT4 TD; -OLANZAPINE 10 MG TABLET PO ONE; +RISP3TAB3 PO; -SPIR25TA3 PO; +SPIR25TA5 PO; -THIA100T6 PO; +THIA100T67 PO; +TRAZ-136 PO
[2017-11-13 19:43] LABS: BASOPHILS # (AUTO) 0.02 x10^3/uL (0-0.1); BASOPHILS % (AUTO) 0 % (0-1); EOSINOPHILS # (AUTO) 0.03 x10^3/uL (0-0.4); EOSINOPHILS % (AUTO) 1 % (1-7); LYMPHOCYTES # (AUTO) 1.16 x10^3/uL (1-3.4); LYMPHOCYTES % (AUTO) 27 % (22-44); MD NO; MEAN CORPUSCULAR HEMOGLOBIN 27.7 pg (27.5-34.5); MEAN CORPUSCULAR HGB CONC 32.8 g/dL (33.2-36.2); MEAN CORPUSCULAR VOLUME 84.4 fL (81-97); MEAN PLATELET VOLUME 8.5 fL (7.4-10.4); MONOCYTES # (AUTO) 0.38 x10^3/uL (0.2-0.8); MONOCYTES % (AUTO) 9 % (2-9); NEUTROPHILS # (AUTO) 2.73 x10^3/uL (1.8-6.8); NEUTROPHILS % (AUTO) 63 % (42-75); PLATELET COUNT 188 x10^3/uL (130-400); RED BLOOD COUNT 4.17 x10^6/uL (4.38-5.82)
[2017-11-13 19:54] LABS: ALBUMIN 3.3 g/dL (3.4-5.0); ANION GAP 14 mmol/L (5-15); CALCIUM 7.9 mg/dL (8.5-10.1); CHLORIDE 102 mmol/L (98-107)
[2017-11-13] MEDS ORDERED: THIAMINE 100 MG/ML, 2ML ONE (23:43)
[2017-11-14] MEDS ORDERED: THIAMINE 100 MG/ML, 2ML IM ONE
[2017-11-14] MEDS ORDERED: ZIPRASIDONE 20 MG INJ IM ONE ×3 (01:13→02:00)
[2017-11-14] MEDS ORDERED: DIPHENHYDRAMINE 50 MG/ML, 1ML IM ONE (02:30)
[2017-11-14] MEDS ORDERED: DIPHENHYDRAMINE 50 MG/ML, 1ML ONE (02:31)
[2017-11-14] MEDS ORDERED: LORazepam 2 MG/ML, 1ML ONE (02:55)
[2017-11-14] MEDS ORDERED: SODIUM CHLORIDE 0.9% 1,000ML IVBOLUS ONE (03:00)
[2017-11-14] MEDS ORDERED: LORazepam 2 MG/ML, 1ML IVPush ONE (03:00)
[2017-11-14] MEDS ORDERED: DIPHENHYDRAMINE 50 MG/ML, 1ML IVPush ONE (03:00)
[2017-11-14 05:27] LABS: AMPHETAMINE SCREEN, URINE Negative (Negative); BARBITURATE SCREEN, URINE Negative (Negative); BENZODIAZEPINE SCREEN, URINE Negative (Negative); CANNABINOID SCREEN, URINE Negative (Negative); COCAINE SCREEN, URINE Negative (Negative); METHADONE SCREEN, URINE Negative (Negative); OPIATE SCREEN, URINE Negative (Negative)
[2017-11-14] MEDS ORDERED: SODIUM CHLORIDE 0.9% 1,000 ML IV ONE (07:46)
[2017-11-14] MEDS ORDERED: PROPOFOL 100 ML IV PRN ×2 (07:59→08:00)
[2017-11-14] MEDS ORDERED: SUCCINYLCHOLINE 20 MG/ML, 10ML ONE (08:00)
[2017-11-14] MEDS ORDERED: AMPICILLIN/SULBACTAM 3 GM in SODIUM CHLORIDE 0.9% 100 ML IV SCH (08:00)
[2017-11-14] MEDS ORDERED: PROPOFOL 10 MG/ML, 100ML IV ONE (08:00)
[2017-11-14] MEDS ORDERED: PHARMACY MAY ADJ FOR RENAL FX MC SCH (08:00)
[2017-11-14] MEDS ORDERED: MIDAZOLAM 1 MG/ML, 5ML IVPush ONE (08:00)
[2017-11-14] MEDS ORDERED: LIDOCAINE-MPF 1%, 2ML ENDO PRN (08:00)
[2017-11-14] MEDS ORDERED: MIDAZOLAM 1 MG/ML, 5ML ONE (08:00)
[2017-11-14] MEDS ORDERED: SODIUM CHLORIDE 0.9%, 500ML IVBOLUS ONE (09:30)
[2017-11-14] MEDS ORDERED: SUCCINYLCHOLINE 20 MG/ML, 10ML IVPush ONE (09:30)
[2017-11-14] MEDS: AMPICILLIN/SULBACTAM 3 GM in SODIUM CHLORIDE 0.9% 100 ML IV SCH ×3 (10:00→20:55)
[2017-11-14] MEDS: SODIUM CHLORIDE 0.9% 1,000 ML IV SCH ×2 (10:05→23:05)
[2017-11-14] MEDS ORDERED: morphine SULFATE 10 MG/ML, 1ML IVPush PRN (10:30)
[2017-11-14] MEDS ORDERED: BISACODYL 10 MG SUPP PR PRN (10:30)
[2017-11-14] MEDS ORDERED: POLYETHYLENE GLYCOL 17 GM PACKET PO PRN (10:30)
[2017-11-14] MEDS ORDERED: ONDANSETRON 2MG/ML, 2ML IVPush PRN (10:30)
[2017-11-14] MEDS ORDERED: LORazepam 2 MG/ML, 1ML IVPush PRN (10:30)
[2017-11-14] MEDS ORDERED: ONDANSETRON ODT 4 MG PO PRN (10:30)
[2017-11-14 10:44] LABS: CULTURE INDICATED? NO; MICROSCOPIC NOT IND
[2017-11-14] MEDS: THIAMINE 200 MG, MVI ADULT 10 ML, FOLIC ACID 1 MG in D5%-0.9% NACL 1,000 ML IV SCH (11:39)
[2017-11-14] MEDS: ENOXAPARIN 40 MG/0.4 ML SQ SCH (11:40)
[2017-11-14 11:44] LABS: ALBUMIN 3.1 g/dL (3.4-5.0); BILIRUBIN, DIRECT 0.2 mg/dL (0.1-0.2)
[2017-11-14 11:55] LABS: BILIRUBIN,INDIRECT 0.3 mg/dL (0.0-2.0); BILIRUBIN,TOTAL 0.5 mg/dL (0.2-1.0); THYROID STIMULATING HORMONE 0.592 mIU/L (0.358-3.740); TOTAL PROTEIN 7.4 g/dL (6.4-8.2)
[2017-11-14] MEDS ORDERED: ALBUTEROL SULFATE 2.5 MG/3 ML NPPB PRN (15:30)
[2017-11-14] MEDS: LABETALOL 5MG/ML, 20ML IVPush PRN ×2 (17:26→20:41)
[2017-11-14] MEDS ORDERED: hydrALAzine 20 MG/ML, 1ML IV PRN ×2 (18:30→22:30)
[2017-11-14] MEDS: METOPROLOL TARTRATE 25 MG TABLET PO SCH (19:38)
[2017-11-14] MEDS: FAMOTIDINE 20 MG/2 ML IVPush SCH (20:21)
[2017-11-14] MEDS: OXYcodone IR 5MG TABLET PO PRN ×2 (21:38→23:27)
[2017-11-15] MEDS: AMPICILLIN/SULBACTAM 3 GM in SODIUM CHLORIDE 0.9% 100 ML IV SCH ×4 (03:38→22:39)
[2017-11-15 04:36] LABS: MEAN CORPUSCULAR HEMOGLOBIN 27.2 pg (27.5-34.5); MEAN CORPUSCULAR HGB CONC 32.4 g/dL (33.2-36.2); MEAN CORPUSCULAR VOLUME 83.8 fL (81-97); PLATELET COUNT 163 x10^3/uL (130-400); RED BLOOD COUNT 3.84 x10^6/uL (4.38-5.82); RED CELL DISTRIBUTION WIDTH 18.5 % (9.4-14.8)
[2017-11-15 04:37] LABS: ALBUMIN 2.5 g/dL (3.4-5.0); ANION GAP 11 mmol/L (5-15); CALCIUM 7.3 mg/dL (8.5-10.1); CHLORIDE 109 mmol/L (98-107)
[2017-11-15 04:42] LABS: ALANINE AMINOTRANSFERASE 48 U/L (12-78); ALKALINE PHOSPHATASE 62 U/L (45-117); BILIRUBIN,TOTAL 0.4 mg/dL (0.2-1.0); CHOL/HDL RATIO 1.9; CHOLESTEROL, TOTAL 142 mg/dL (140-239); CREATININE 0.91 mg/dL (0.7-1.3); HDL CHOL % 52 % (26-37); HDL CHOLESTEROL (DIRECT) 74 mg/dL (40-60); LDL CHOLESTEROL,CALCULATED 56 mg/dL (54-169); LDL/HDL RATIO 0.8 (0.5-3.0); TOTAL PROTEIN 6.2 g/dL (6.4-8.2); TRIGLYCERIDES 58 mg/dL (50-200); VLDL CHOLESTEROL 12 mg/dL (0-25)
[2017-11-15] MEDS: METOPROLOL TARTRATE 25 MG TABLET PO SCH (04:56)
[2017-11-15] MEDS: SODIUM CHLORIDE 0.9% 1,000 ML IV SCH (04:57)
[2017-11-15] MEDS ORDERED: MAGNESIUM SULFATE PMX 2GM/50ML 50 ML IV ONE (05:30)
[2017-11-15 05:40] LABS: BASOPHILS # (AUTO) 0.04 x10^3/uL (0-0.1); BASOPHILS % (AUTO) 1 % (0-1); EOSINOPHILS # (AUTO) 0.08 x10^3/uL (0-0.4); EOSINOPHILS % (AUTO) 1 % (1-7); LYMPHOCYTES # (AUTO) 2.05 x10^3/uL (1-3.4); LYMPHOCYTES % (AUTO) 32 % (22-44); MD SCAN; MONOCYTES # (AUTO) 0.43 x10^3/uL (0.2-0.8); MONOCYTES % (AUTO) 7 % (2-9); NEUTROPHILS # (AUTO) 3.82 x10^3/uL (1.8-6.8); NEUTROPHILS % (AUTO) 59 % (42-75)
[2017-11-15] MEDS ORDERED: MAGNESIUM SULFATE 4 GM in SODIUM CHLORIDE 0.9% 100 ML IV ONE (07:30)
[2017-11-15] MEDS: AMLODIPINE 5 MG TABLET PO SCH (08:23)
[2017-11-15] MEDS: FAMOTIDINE 20 MG/2 ML IVPush SCH (08:23)
[2017-11-15] MEDS: SENNA/DOCUSATE TABLET PO SCH (08:24)
[2017-11-15] MEDS: LOSARTAN 50MG TABLET PO SCH (08:24)
[2017-11-15] MEDS: METOPROLOL SUCCINATE 50 MG TAB.ER.24H PO SCH (08:30)
[2017-11-15] MEDS ORDERED: LORazepam 2 MG/ML, 1ML IVPush PRN (09:00)
[2017-11-15] MEDS: THIAMINE 200 MG, MVI ADULT 10 ML, FOLIC ACID 1 MG in D5%-0.9% NACL 1,000 ML IV SCH (10:29)
[2017-11-15] MEDS: CHLORDIAZEPOXIDE 25 MG CAPSULE PO SCH ×3 (10:29→22:36)
[2017-11-15] MEDS: ENOXAPARIN 40 MG/0.4 ML SQ SCH (10:30)
[2017-11-15] MEDS: LABETALOL 5MG/ML, 20ML IVPush PRN (11:41)
[2017-11-15 12:10] VITALS: BP 151/94
[2017-11-15 19:16] VITALS: BP 161/97
[2017-11-15] MEDS ORDERED: ALBUTEROL SULFATE 2.5 MG/3 ML NPPB PRN (19:30)
[2017-11-16] MEDS: OXYcodone IR 5MG TABLET PO PRN (00:15)
[2017-11-16 01:15] VITALS: BP 164/110
[2017-11-16] MEDS: LABETALOL 5MG/ML, 20ML IVPush PRN (01:28)
[2017-11-16 04:18] LABS: BASOPHILS # (AUTO) 0.03 x10^3/uL (0-0.1); BASOPHILS % (AUTO) 1 % (0-1); EOSINOPHILS # (AUTO) 0.13 x10^3/uL (0-0.4); EOSINOPHILS % (AUTO) 2 % (1-7); LYMPHOCYTES # (AUTO) 2.01 x10^3/uL (1-3.4); LYMPHOCYTES % (AUTO) 37 % (22-44); MD NO; MEAN CORPUSCULAR HEMOGLOBIN 27.9 pg (27.5-34.5); MEAN CORPUSCULAR VOLUME 84.4 fL (81-97); MEAN PLATELET VOLUME 8.9 fL (7.4-10.4); MONOCYTES # (AUTO) 0.41 x10^3/uL (0.2-0.8); MONOCYTES % (AUTO) 8 % (2-9); NEUTROPHILS # (AUTO) 2.81 x10^3/uL (1.8-6.8); NEUTROPHILS % (AUTO) 52 % (42-75); PLATELET COUNT 195 x10^3/uL (130-400); RED BLOOD COUNT 4.12 x10^6/uL (4.38-5.82); RED CELL DISTRIBUTION WIDTH 17.7 % (9.4-14.8)
[2017-11-16 04:28] LABS: ANION GAP 8 mmol/L (5-15); CALCIUM 7.9 mg/dL (8.5-10.1); CHLORIDE 105 mmol/L (98-107)
[2017-11-16 04:50] VITALS: BP 151/99
[2017-11-16] MEDS: AMPICILLIN/SULBACTAM 3 GM in SODIUM CHLORIDE 0.9% 100 ML IV SCH ×4 (04:51→15:52)
[2017-11-16] MEDS: METOPROLOL SUCCINATE 50 MG TAB.ER.24H PO SCH (04:51)
[2017-11-16 08:30] VITALS: BP 135/86
[2017-11-16] MEDS: AMLODIPINE 5 MG TABLET PO SCH (08:52)
[2017-11-16] MEDS: SENNA/DOCUSATE TABLET PO SCH (08:52)
[2017-11-16] MEDS: CHLORDIAZEPOXIDE 25 MG CAPSULE PO SCH ×2 (08:53→15:53)
[2017-11-16] MEDS: LOSARTAN 50MG TABLET PO SCH (08:53)
[2017-11-16] MEDS: ENOXAPARIN 40 MG/0.4 ML SQ SCH (10:12)
[2017-11-16 13:10] VITALS: BP 136/88
[2017-11-16] MEDS: THIAMINE 200 MG, MVI ADULT 10 ML, FOLIC ACID 1 MG in D5%-0.9% NACL 1,000 ML IV SCH (13:43)
== END 2017-11-16 17:10 | disposition home or self-care (01) | DRG 208 ==
LOC: ED 21:33 → EDIP 11-14 07:46 → CCU 11-14 09:43 → 3NW 11-15 11:47
PROVIDERS: ADMIT Internal Medicine; ATTEND Internal Medicine
PROC: 0BH17EZ Insertion of Endotracheal Airway into Trachea, Via Natural or Artificial Opening (ICD-10-PCS; principal; 2017-11-14)
PROC: 5A1935Z Respiratory Ventilation, Less than 24 Consecutive Hours (ICD-10-PCS; 2017-11-14)
PROC: 0T9B70Z Drainage of Bladder with Drainage Device, Via Natural or Artificial Opening (ICD-10-PCS; 2017-11-14)
DX: J96.01 Acute respiratory failure with hypoxia (principal); G92 Toxic encephalopathy; F10.221 Alcohol dependence with intoxication delirium; I50.22 Chronic systolic (congestive) heart failure; Z99.11 Dependence on respirator [ventilator] status; F33.9 Major depressive disorder, recurrent, unspecified; I42.8 Other cardiomyopathies; G31.2 Degeneration of nervous system due to alcohol; I11.0 Hypertensive heart disease with heart failure; D50.9 Iron deficiency anemia, unspecified; E11.9 Type 2 diabetes mellitus without complications; E78.5 Hyperlipidemia, unspecified; E87.6 Hypokalemia; R68.0 Hypothermia, not associated with low environmental temperature; F15.90 Other stimulant use, unspecified, uncomplicated; F20.9 Schizophrenia, unspecified; I25.10 Atherosclerotic heart disease of native coronary artery without angina pectoris; I25.2 Old myocardial infarction; J45.909 Unspecified asthma, uncomplicated; K21.9 Gastro-esophageal reflux disease without esophagitis; Y90.8 Blood alcohol level of 240 mg/100 ml or more; Z59.0 Homelessness; Z80.9 Family history of malignant neoplasm, unspecified; Z82.49 Family history of ischemic heart disease and other diseases of the circulatory system; Z87.19 Personal history of other diseases of the digestive system; Z91.19 Patient's noncompliance with other medical treatment and regimen; Z91.5 Personal history of self-harm; Z86.73 Personal history of transient ischemic attack (TIA), and cerebral infarction without residual deficits; Z88.8 Allergy status to other drugs, medicaments and biological substances; Z79.899 Other long term (current) drug therapy
CPT/HCPCS: 31500; 36415; 36600; 51702; 70450; 71045; 80048; 80053; 80061; 80076; 80307; 81003; 82040; 82140; 82728; 82803; 83540; 83550; 83690; 83735; 84100; 84443; 84478; 85025; 87040; 87070; 87081; 87205; 90656; 93005; 94002; 96365; 96372; 96375; 99291; G0378; J0295; J1650; J2250; J2704; J3411; J3486; J7042; J0330; J0360; J1200; J2060; J3475; J7030; J7040; S0028

== ENCOUNTER 2017-11-17 03:27 | Emergency (ER) | payer MEDICARE, MEDICAID ==
[~2017-11-17] VITALS: Ht 180.3 cm; Wt 97.2 kg
[2017-11-17 03:46] LABS: BASOPHILS # (AUTO) 0.04 x10^3/uL (0-0.1); BASOPHILS % (AUTO) 1 % (0-1); EOSINOPHILS % (AUTO) 1 % (1-7); LYMPHOCYTES # (AUTO) 2.35 x10^3/uL (1-3.4); LYMPHOCYTES % (AUTO) 33 % (22-44); MD NO; MEAN CORPUSCULAR HEMOGLOBIN 27.3 pg (27.5-34.5); MEAN CORPUSCULAR HGB CONC 32.7 g/dL (33.2-36.2); MEAN CORPUSCULAR VOLUME 83.5 fL (81-97); MEAN PLATELET VOLUME 8.5 fL (7.4-10.4); MONOCYTES # (AUTO) 0.47 x10^3/uL (0.2-0.8); MONOCYTES % (AUTO) 7 % (2-9); NEUTROPHILS # (AUTO) 4.07 x10^3/uL (1.8-6.8); NEUTROPHILS % (AUTO) 58 % (42-75); PLATELET COUNT 236 x10^3/uL (130-400); RED BLOOD COUNT 4.52 x10^6/uL (4.38-5.82); RED CELL DISTRIBUTION WIDTH 18.1 % (9.4-14.8)
[2017-11-17 03:58] LABS: ALBUMIN 3.5 g/dL (3.4-5.0); ANION GAP 12 mmol/L (5-15); CALCIUM 8.3 mg/dL (8.5-10.1); CHLORIDE 101 mmol/L (98-107); CREATININE 0.86 mg/dL (0.7-1.3)
[2017-11-17] MEDS ORDERED: LIDOCAINE 1%-EPI 1:100K, 20ML SQ ONE (04:00)
[2017-11-17] MEDS ORDERED: DIPH,PERTUSS(ACELL),TET VAC/PF 0.5 ML IM-VACC ONE (04:00)
[2017-11-17 04:01] LABS: ACETAMINOPHEN < 2 mcg/mL (10-30)
[2017-11-17] MEDS ORDERED: POTASSIUM CHLORIDE 20 MEQ TAB.ER.PRT ONE (05:09)
[2017-11-17] MEDS ORDERED: POTASSIUM CHLORIDE 20 MEQ TAB.ER.PRT PO ONE (05:30)
[2017-11-17] MEDS ORDERED: BACITRACIN ZINC OINT 500U/GM, 0.9 GM ONE (05:39)
[2017-11-17 08:12] VITALS: BP 129/95
[2017-11-18] MEDS ORDERED: SERT50TA PO (21:49)
[2017-11-18] MEDS ORDERED: TRAZ-137 PO (21:49)
== END 2017-11-17 11:06 | disposition home or self-care (01) ==
LOC: ED 09:19
DX: F10.220 Alcohol dependence with intoxication, uncomplicated (principal); I11.0 Hypertensive heart disease with heart failure; I50.9 Heart failure, unspecified; I25.2 Old myocardial infarction; E11.9 Type 2 diabetes mellitus without complications; E78.5 Hyperlipidemia, unspecified; F20.9 Schizophrenia, unspecified; K21.9 Gastro-esophageal reflux disease without esophagitis; I42.9 Cardiomyopathy, unspecified
CPT/HCPCS: 36415; 80048; 80307; 82040; 85025; 99284

== ENCOUNTER 2017-11-17 19:49 | Emergency (ER) | payer MEDICAID ==
[~2017-11-17] VITALS: Ht 193 cm; Wt 95.0 kg
[2017-11-17] MEDS ORDERED: ZIPRASIDONE 20 MG INJ IM ONE ×2 (20:30→20:31)
[2017-11-18 01:37] VITALS: BP 126/72
[2017-11-18] MEDS ORDERED: TRAZ-137 PO (21:49)
[2017-11-18] MEDS ORDERED: SERT50TA PO (21:49)
== END 2017-11-18 02:08 | disposition home or self-care (01) ==
LOC: MERGE 19:49 → ED 11-18 00:40
DX: F10.220 Alcohol dependence with intoxication, uncomplicated (principal)
CPT/HCPCS: 96372; 99283; J3486

== ENCOUNTER 2017-11-18 04:27 | Observation (INO) | payer MEDICARE, MEDICAID ==
[~2017-11-18] VITALS: Ht 170.2 cm; Wt 89.0 kg
[2017-11-18] MEDS ORDERED: ZIPRASIDONE 20 MG INJ IM ONE ×2 (05:12→05:30)
[2017-11-18 05:21] LABS: BASOPHILS # (AUTO) 0.03 x10^3/uL (0-0.1); BASOPHILS % (AUTO) 1 % (0-1); EOSINOPHILS # (AUTO) 0.07 x10^3/uL (0-0.4); EOSINOPHILS % (AUTO) 1 % (1-7); LYMPHOCYTES # (AUTO) 2.47 x10^3/uL (1-3.4); LYMPHOCYTES % (AUTO) 41 % (22-44); MD NO; MEAN CORPUSCULAR HEMOGLOBIN 27.7 pg (27.5-34.5); MEAN CORPUSCULAR HGB CONC 33.1 g/dL (33.2-36.2); MEAN CORPUSCULAR VOLUME 83.6 fL (81-97); MEAN PLATELET VOLUME 8.5 fL (7.4-10.4); MONOCYTES # (AUTO) 0.71 x10^3/uL (0.2-0.8); MONOCYTES % (AUTO) 12 % (2-9); NEUTROPHILS # (AUTO) 2.72 x10^3/uL (1.8-6.8); NEUTROPHILS % (AUTO) 45 % (42-75); PLATELET COUNT 234 x10^3/uL (130-400); RED BLOOD COUNT 4.56 x10^6/uL (4.38-5.82); RED CELL DISTRIBUTION WIDTH 18.9 % (9.4-14.8)
[2017-11-18 05:32] LABS: ALANINE AMINOTRANSFERASE 51 U/L (12-78); ALBUMIN 3.4 g/dL (3.4-5.0); ANION GAP 14 mmol/L (5-15); CALCIUM 8.2 mg/dL (8.5-10.1); CHLORIDE 107 mmol/L (98-107); CREATININE 0.91 mg/dL (0.7-1.3)
[2017-11-18 05:36] LABS: ALKALINE PHOSPHATASE 69 U/L (45-117); BILIRUBIN,TOTAL 0.6 mg/dL (0.2-1.0); TOTAL PROTEIN 8.1 g/dL (6.4-8.2)
[2017-11-18] MEDS: D5%-0.45% NACL 1,000 ML IV SCH ×5 (06:00→22:00)
[2017-11-18] MEDS ORDERED: CHLORDIAZEPOXIDE 25 MG CAPSULE PO PRN (12:30)
[2017-11-18 14:55] LABS: AMPHETAMINE SCREEN, URINE Positive (Negative); BARBITURATE SCREEN, URINE Negative (Negative); BENZODIAZEPINE SCREEN, URINE Positive (Negative); CANNABINOID SCREEN, URINE Negative (Negative); COCAINE SCREEN, URINE Negative (Negative); METHADONE SCREEN, URINE Negative (Negative); OPIATE SCREEN, URINE Negative (Negative)
[2017-11-18] MEDS ORDERED: SERT50TA PO (21:49)
[2017-11-18] MEDS ORDERED: TRAZ-137 PO (21:49)
[2017-11-18] MEDS ORDERED: ALBUTEROL/IPRATROPIUM 2.5MG/0.5MG, 3 ML ONE (21:58)
[2017-11-18] MEDS ORDERED: ALBUTEROL/IPRATROPIUM 2.5MG/0.5MG, 3 ML NPPB ONE (22:00)
[2017-11-19] MEDS ORDERED: DOCUSATE 100 MG CAPSULE PO PRN (01:30)
[2017-11-19] MEDS ORDERED: LORazepam 1MG TABLET PO PRN ×2 (01:30→10:30)
[2017-11-19] MEDS ORDERED: ALBUTEROL SULFATE 2.5 MG/3 ML NPPB PRN (01:30)
[2017-11-19] MEDS ORDERED: OLANZAPINE 5 MG TABLET ONE (01:45)
[2017-11-19] MEDS: OLANZAPINE 5 MG TABLET PO SCH ×3 (01:47→20:57)
[2017-11-19] MEDS: D5%-0.45% NACL 1,000 ML IV SCH ×2 (02:00→06:00)
[2017-11-19 08:12] VITALS: BP 148/102
[2017-11-19] MEDS: LOSARTAN 50MG TABLET PO SCH (09:00)
[2017-11-19] MEDS: METOPROLOL SUCCINATE 25 MG TAB.ER.24H PO SCH ×2 (09:06→20:57)
[2017-11-19] MEDS: MULTIVITAMIN 1 TABLET PO SCH (09:10)
[2017-11-19 10:18] VITALS: BP 132/92
[2017-11-19] MEDS ORDERED: CHLORDIAZEPOXIDE 25 MG CAPSULE PO PRN (10:30)
[2017-11-19] MEDS: FOLIC ACID 1 MG TABLET PO SCH (11:25)
[2017-11-19] MEDS: THIAMINE 100MG TABLET PO SCH (11:26)
[2017-11-19 17:37] VITALS: BP 132/92
[2017-11-19] MEDS: GUAIFENESIN 200 MG TABLET PO SCH ×2 (18:31→20:58)
[2017-11-19] MEDS ORDERED: SIMVASTATIN 20 MG TABLET PO SCH (21:00)
[2017-11-19] MEDS ORDERED: TRAZODONE 50MG TABLET PO SCH (21:00)
[2017-11-19 21:04] VITALS: BP 128/83
[2017-11-19] MEDS: FLUTICASONE NASAL SPRAY 16GM NAS SCH (21:16)
[2017-11-20] MEDS: GUAIFENESIN 200 MG TABLET PO SCH ×3 (05:32→15:19)
[2017-11-20 08:00] VITALS: BP 132/90
[2017-11-20] MEDS: LOSARTAN 50MG TABLET PO SCH (08:24)
[2017-11-20] MEDS: FLUTICASONE NASAL SPRAY 16GM NAS SCH (08:24)
[2017-11-20] MEDS: FOLIC ACID 1 MG TABLET PO SCH (08:25)
[2017-11-20] MEDS: MULTIVITAMIN 1 TABLET PO SCH (08:25)
[2017-11-20] MEDS: THIAMINE 100MG TABLET PO SCH (08:25)
[2017-11-20] MEDS: METOPROLOL SUCCINATE 25 MG TAB.ER.24H PO SCH (08:25)
[2017-11-20] MEDS: OLANZAPINE 5 MG TABLET PO SCH (08:26)
[2017-11-20] MEDS: VALPROIC ACID 250 MG CAPSULE PO SCH ×2 (11:00→15:19)
[2017-11-20] MEDS: cloniDINE 0.1MG PATCH TD SCH ×2 (11:00→11:58)
[2017-11-20] MEDS: GABAPENTIN 100 MG CAPSULE PO SCH ×2 (11:27→15:19)
[2017-11-20] MEDS ORDERED: GABA-826 PO (15:38)
[2017-11-20] MEDS ORDERED: THIA100T67 PO (15:38)
[2017-11-20] MEDS ORDERED: LORA-446 PO (15:38)
[2017-11-20] MEDS ORDERED: GUAI200T3 PO (15:38)
[2017-11-20] MEDS ORDERED: VALP250C PO (15:38)
[2017-11-20] MEDS ORDERED: OLAN5TAB9 PO (15:38)
== END 2017-11-20 16:05 ==
LOC: ED 04:30 → EDIP 11-19 00:34 → 2N 11-19 08:20
PROVIDERS: ADMIT Internal Medicine; ATTEND Internal Medicine
DX: R45.851 Suicidal ideations (principal); F32.0 Major depressive disorder, single episode, mild; F10.220 Alcohol dependence with intoxication, uncomplicated; F15.10 Other stimulant abuse, uncomplicated; F17.200 Nicotine dependence, unspecified, uncomplicated; F20.9 Schizophrenia, unspecified; E11.649 Type 2 diabetes mellitus with hypoglycemia without coma; E78.5 Hyperlipidemia, unspecified; I11.0 Hypertensive heart disease with heart failure; I25.10 Atherosclerotic heart disease of native coronary artery without angina pectoris; I25.2 Old myocardial infarction; I50.9 Heart failure, unspecified; J45.909 Unspecified asthma, uncomplicated; K21.9 Gastro-esophageal reflux disease without esophagitis; K44.9 Diaphragmatic hernia without obstruction or gangrene; Z87.19 Personal history of other diseases of the digestive system; Z91.19 Patient's noncompliance with other medical treatment and regimen; Z91.5 Personal history of self-harm
CPT/HCPCS: 36415; 71045; 80053; 80307; 85025; 94640; 96372; 99285; G0378; J3486; J7620

== ENCOUNTER 2017-11-20 15:57 | Inpatient (IN) | payer MEDICARE, MEDICAID ==
[~2017-11-20] VITALS: Ht 193 cm; Wt 92.2 kg
[~2017-11-20 15:57] MED LIST changes: +GABA-826 PO; +GUAI200T3 PO; +LORA-446 PO; +OLAN5TAB9 PO; +SERT50TA PO; +TRAZ-137 PO; +VALP250C PO
[2017-11-20] MEDS ORDERED: POLYETHYLENE GLYCOL 17 GM PACKET PO PRN (16:30)
[2017-11-20] MEDS ORDERED: HYDROXYZINE PAMOATE 25MG CAP PO PRN (16:30)
[2017-11-20] MEDS ORDERED: DOCUSATE 100 MG CAPSULE PO PRN (16:30)
[2017-11-20] MEDS ORDERED: BISACODYL 10 MG SUPP PR PRN (16:30)
[2017-11-20] MEDS ORDERED: LORazepam 1MG TABLET PO PRN (17:00)
[2017-11-20] MEDS ORDERED: PLEASE ENTER HEIGHT AND WEIGHT MC SCH ×2 (17:00)
[2017-11-20 17:12] VITALS: BP 130/86
[2017-11-20 18:29] LABS: BASOPHILS # (AUTO) 0.03 x10^3/uL (0-0.1); BASOPHILS % (AUTO) 1 % (0-1); EOSINOPHILS # (AUTO) 0.24 x10^3/uL (0-0.4); EOSINOPHILS % (AUTO) 4 % (1-7); LYMPHOCYTES # (AUTO) 1.65 x10^3/uL (1-3.4); LYMPHOCYTES % (AUTO) 28 % (22-44); MD NO; MEAN CORPUSCULAR HGB CONC 32.7 g/dL (33.2-36.2); MEAN CORPUSCULAR VOLUME 85.6 fL (81-97); MONOCYTES # (AUTO) 0.52 x10^3/uL (0.2-0.8); MONOCYTES % (AUTO) 9 % (2-9); NEUTROPHILS # (AUTO) 3.56 x10^3/uL (1.8-6.8); NEUTROPHILS % (AUTO) 59 % (42-75); PLATELET COUNT 187 x10^3/uL (130-400); RED BLOOD COUNT 4.04 x10^6/uL (4.38-5.82); RED CELL DISTRIBUTION WIDTH 18.4 % (9.4-14.8)
[2017-11-20 18:36] LABS: HCT (SEDRATE) 34.6 % (39.2-51.8)
[2017-11-20 18:39] LABS: ALBUMIN 2.6 g/dL (3.4-5.0); ANION GAP 8 mmol/L (5-15); CALCIUM 7.9 mg/dL (8.5-10.1); CHLORIDE 105 mmol/L (98-107)
[2017-11-20 19:04] LABS: ALANINE AMINOTRANSFERASE 38 U/L (12-78); ALKALINE PHOSPHATASE 60 U/L (45-117); BILIRUBIN,TOTAL 0.3 mg/dL (0.2-1.0); CHOL/HDL RATIO 1.8; CHOLESTEROL, TOTAL 144 mg/dL (140-239); CREATININE 0.96 mg/dL (0.7-1.3); FREE T4 (FREE THYROXINE) 0.92 ng/dL (0.76-1.46); HDL CHOL % 56 % (26-37); HDL CHOLESTEROL (DIRECT) 80 mg/dL (40-60); LDL CHOLESTEROL,CALCULATED 52 mg/dL (54-169); LDL/HDL RATIO 0.7 (0.5-3.0); TOTAL PROTEIN 6.9 g/dL (6.4-8.2); TRIGLYCERIDES 62 mg/dL (50-200); VLDL CHOLESTEROL 12 mg/dL (0-25)
[2017-11-20 19:06] LABS: FOLATE LEVEL > 20.0 ng/mL (3.1-17.5)
[2017-11-20] MEDS: GUAIFENESIN 200 MG TABLET PO SCH (20:08)
[2017-11-20] MEDS: SIMVASTATIN 20 MG TABLET PO SCH (20:09)
[2017-11-20] MEDS: ACETAMINOPHEN 325 MG TABLET PO PRN (20:09)
[2017-11-20] MEDS: OLANZAPINE 5 MG TABLET PO SCH (20:09)
[2017-11-20] MEDS: GABAPENTIN 100 MG CAPSULE PO SCH (20:10)
[2017-11-20 20:14] VITALS: BP 125/83
[2017-11-20] MEDS ORDERED: METOPROLOL SUCCINATE 25 MG TAB.ER.24H PO SCH (21:00)
[2017-11-20] MEDS ORDERED: VALPROIC ACID 250 MG PO SCH (21:00)
[2017-11-20] MEDS: VALPROIC ACID 250 MG CAPSULE PO SCH (21:01)
[2017-11-21 01:03] VITALS: BP 137/90
[2017-11-21] MEDS: GUAIFENESIN 200 MG TABLET PO SCH ×4 (05:33→19:58)
[2017-11-21 07:28] LABS: BASOPHILS # (AUTO) 0.04 x10^3/uL (0-0.1); BASOPHILS % (AUTO) 1 % (0-1); EOSINOPHILS # (AUTO) 0.29 x10^3/uL (0-0.4); EOSINOPHILS % (AUTO) 5 % (1-7); LYMPHOCYTES # (AUTO) 1.96 x10^3/uL (1-3.4); LYMPHOCYTES % (AUTO) 34 % (22-44); MD NO; MEAN CORPUSCULAR HEMOGLOBIN 27.5 pg (27.5-34.5); MEAN CORPUSCULAR HGB CONC 32.5 g/dL (33.2-36.2); MEAN CORPUSCULAR VOLUME 84.6 fL (81-97); MEAN PLATELET VOLUME 8.9 fL (7.4-10.4); MONOCYTES # (AUTO) 0.46 x10^3/uL (0.2-0.8); MONOCYTES % (AUTO) 8 % (2-9); NEUTROPHILS # (AUTO) 3.04 x10^3/uL (1.8-6.8); NEUTROPHILS % (AUTO) 53 % (42-75); PLATELET COUNT 205 x10^3/uL (130-400); RED BLOOD COUNT 4.12 x10^6/uL (4.38-5.82); RED CELL DISTRIBUTION WIDTH 18.4 % (9.4-14.8)
[2017-11-21 07:36] LABS: ANION GAP 7 mmol/L (5-15); CALCIUM 8.5 mg/dL (8.5-10.1); CHLORIDE 108 mmol/L (98-107); CREATININE 0.81 mg/dL (0.7-1.3)
[2017-11-21 07:40] VITALS: BP 144/110
[2017-11-21] MEDS: FOLIC ACID 1 MG TABLET PO SCH (08:50)
[2017-11-21] MEDS: LOSARTAN 50MG TABLET PO SCH (08:50)
[2017-11-21] MEDS: SERTRALINE 50MG TABLET PO SCH (08:53)
[2017-11-21] MEDS: GABAPENTIN 100 MG CAPSULE PO SCH ×3 (08:53→20:00)
[2017-11-21] MEDS: VALPROIC ACID 250 MG CAPSULE PO SCH ×2 (08:53→19:58)
[2017-11-21] MEDS: AMLODIPINE 10 MG TAB PO SCH (08:53)
[2017-11-21] MEDS: THIAMINE 100MG TABLET PO SCH (08:53)
[2017-11-21] MEDS: OLANZAPINE 5 MG TABLET PO SCH ×2 (08:54→20:01)
[2017-11-21] MEDS: METOPROLOL SUCCINATE 25 MG TAB.ER.24H PO SCH ×2 (09:08→20:00)
[2017-11-21] MEDS: SIMVASTATIN 20 MG TABLET PO SCH (20:00)
[2017-11-21 20:05] VITALS: BP 145/85
[2017-11-21 20:21] LABS: CULTURE INDICATED? NO; MICROSCOPIC NOT IND
[2017-11-21] MEDS ORDERED: METOPROLOL SUCCINATE 25 MG TAB.ER.24H PO SCH (21:00)
[2017-11-22] MEDS: GUAIFENESIN 200 MG TABLET PO SCH ×4 (06:09→20:08)
[2017-11-22 07:54] VITALS: BP 138/91
[2017-11-22] MEDS: FOLIC ACID 1 MG TABLET PO SCH (08:13)
[2017-11-22] MEDS: LOSARTAN 50MG TABLET PO SCH (08:14)
[2017-11-22] MEDS: THIAMINE 100MG TABLET PO SCH (08:14)
[2017-11-22] MEDS: GABAPENTIN 100 MG CAPSULE PO SCH ×3 (08:14→20:08)
[2017-11-22] MEDS: AMLODIPINE 10 MG TAB PO SCH (08:14)
[2017-11-22] MEDS: VALPROIC ACID 250 MG CAPSULE PO SCH ×2 (08:14→20:07)
[2017-11-22] MEDS: SERTRALINE 50MG TABLET PO SCH (08:14)
[2017-11-22] MEDS: METOPROLOL SUCCINATE 25 MG TAB.ER.24H PO SCH ×2 (08:14→20:08)
[2017-11-22] MEDS: OLANZAPINE 5 MG TABLET PO SCH ×2 (08:14→20:08)
[2017-11-22 19:34] VITALS: BP 128/85
[2017-11-22] MEDS: SIMVASTATIN 20 MG TABLET PO SCH (20:08)
[2017-11-22] MEDS: ACETAMINOPHEN 325 MG TABLET PO PRN (20:09)
[2017-11-23] MEDS: GUAIFENESIN 200 MG TABLET PO SCH ×4 (06:15→20:22)
[2017-11-23 07:51] VITALS: BP 132/89
[2017-11-23 08:09] VITALS: BP 132/89
[2017-11-23] MEDS: FOLIC ACID 1 MG TABLET PO SCH (08:28)
[2017-11-23] MEDS: AMLODIPINE 10 MG TAB PO SCH (08:28)
[2017-11-23] MEDS: LOSARTAN 50MG TABLET PO SCH (08:28)
[2017-11-23] MEDS: METOPROLOL SUCCINATE 25 MG TAB.ER.24H PO SCH ×2 (08:28→20:23)
[2017-11-23] MEDS: OLANZAPINE 5 MG TABLET PO SCH ×2 (08:29→20:24)
[2017-11-23] MEDS: VALPROIC ACID 250 MG CAPSULE PO SCH ×2 (08:29→20:22)
[2017-11-23] MEDS: THIAMINE 100MG TABLET PO SCH (08:29)
[2017-11-23] MEDS: GABAPENTIN 100 MG CAPSULE PO SCH ×3 (08:29→20:23)
[2017-11-23] MEDS: SERTRALINE 50MG TABLET PO SCH (08:29)
[2017-11-23 20:02] VITALS: BP 129/83
[2017-11-23] MEDS: SIMVASTATIN 20 MG TABLET PO SCH (20:23)
[2017-11-24] MEDS: GUAIFENESIN 200 MG TABLET PO SCH ×4 (05:51→20:36)
[2017-11-24 07:55] VITALS: BP 142/92
[2017-11-24 07:58] VITALS: BP 142/92
[2017-11-24] MEDS: GABAPENTIN 100 MG CAPSULE PO SCH ×3 (08:36→20:36)
[2017-11-24] MEDS: SERTRALINE 50MG TABLET PO SCH (08:36)
[2017-11-24] MEDS: OLANZAPINE 5 MG TABLET PO SCH ×2 (08:36→20:37)
[2017-11-24] MEDS: METOPROLOL SUCCINATE 25 MG TAB.ER.24H PO SCH ×2 (08:36→20:37)
[2017-11-24] MEDS: FOLIC ACID 1 MG TABLET PO SCH (08:36)
[2017-11-24] MEDS: VALPROIC ACID 250 MG CAPSULE PO SCH ×2 (08:36→20:36)
[2017-11-24] MEDS: THIAMINE 100MG TABLET PO SCH (08:36)
[2017-11-24] MEDS: AMLODIPINE 10 MG TAB PO SCH (08:36)
[2017-11-24] MEDS: LOSARTAN 50MG TABLET PO SCH (08:36)
[2017-11-24 19:44] VITALS: BP 113/68
[2017-11-24] MEDS: ACETAMINOPHEN 325 MG TABLET PO PRN (20:36)
[2017-11-24] MEDS: SIMVASTATIN 20 MG TABLET PO SCH (20:36)
[2017-11-25] MEDS: GUAIFENESIN 200 MG TABLET PO SCH ×4 (06:14→21:04)
[2017-11-25 07:52] VITALS: BP 146/96
[2017-11-25] MEDS: LOSARTAN 50MG TABLET PO SCH (08:43)
[2017-11-25] MEDS: AMLODIPINE 10 MG TAB PO SCH (08:43)
[2017-11-25] MEDS: THIAMINE 100MG TABLET PO SCH (08:44)
[2017-11-25] MEDS: SERTRALINE 50MG TABLET PO SCH (08:44)
[2017-11-25] MEDS: FOLIC ACID 1 MG TABLET PO SCH (08:44)
[2017-11-25] MEDS: VALPROIC ACID 250 MG CAPSULE PO SCH ×2 (08:44→21:04)
[2017-11-25] MEDS: GABAPENTIN 100 MG CAPSULE PO SCH ×3 (08:44→21:04)
[2017-11-25] MEDS: OLANZAPINE 5 MG TABLET PO SCH ×2 (08:45→21:00)
[2017-11-25] MEDS: METOPROLOL SUCCINATE 25 MG TAB.ER.24H PO SCH ×2 (08:47→21:04)
[2017-11-25 19:40] VITALS: BP 141/93
[2017-11-25] MEDS: SIMVASTATIN 20 MG TABLET PO SCH (21:04)
[2017-11-26] MEDS: GUAIFENESIN 200 MG TABLET PO SCH ×4 (05:48→20:18)
[2017-11-26 07:58] VITALS: BP 134/88
[2017-11-26] MEDS: AMLODIPINE 10 MG TAB PO SCH (08:46)
[2017-11-26] MEDS: LOSARTAN 50MG TABLET PO SCH (08:46)
[2017-11-26] MEDS: GABAPENTIN 100 MG CAPSULE PO SCH ×3 (08:47→20:18)
[2017-11-26] MEDS: VALPROIC ACID 250 MG CAPSULE PO SCH ×2 (08:47→20:18)
[2017-11-26] MEDS: FOLIC ACID 1 MG TABLET PO SCH (08:47)
[2017-11-26] MEDS: METOPROLOL SUCCINATE 25 MG TAB.ER.24H PO SCH ×2 (08:48→20:18)
[2017-11-26] MEDS: THIAMINE 100MG TABLET PO SCH (08:48)
[2017-11-26] MEDS: SERTRALINE 50MG TABLET PO SCH (08:48)
[2017-11-26] MEDS: OLANZAPINE 5 MG TABLET PO SCH ×2 (08:49→20:19)
[2017-11-26 19:57] VITALS: BP 107/70
[2017-11-26] MEDS: SIMVASTATIN 20 MG TABLET PO SCH (20:21)
[2017-11-27] MEDS: GUAIFENESIN 200 MG TABLET PO SCH ×4 (05:19→20:15)
[2017-11-27 07:58] VITALS: BP 122/78
[2017-11-27] MEDS: AMLODIPINE 10 MG TAB PO SCH (08:54)
[2017-11-27] MEDS: LOSARTAN 50MG TABLET PO SCH (08:54)
[2017-11-27] MEDS: VALPROIC ACID 250 MG CAPSULE PO SCH ×2 (08:55→20:14)
[2017-11-27] MEDS: GABAPENTIN 100 MG CAPSULE PO SCH ×3 (08:55→20:17)
[2017-11-27] MEDS: FOLIC ACID 1 MG TABLET PO SCH (08:55)
[2017-11-27] MEDS: THIAMINE 100MG TABLET PO SCH (08:55)
[2017-11-27] MEDS: METOPROLOL SUCCINATE 25 MG TAB.ER.24H PO SCH ×2 (08:55→20:16)
[2017-11-27] MEDS: SERTRALINE 50MG TABLET PO SCH (08:56)
[2017-11-27] MEDS: OLANZAPINE 5 MG TABLET PO SCH ×2 (08:56→20:16)
[2017-11-27] MEDS: ACETAMINOPHEN 325 MG TABLET PO PRN (08:57)
[2017-11-27 19:42] VITALS: BP 124/78
[2017-11-27] MEDS: SIMVASTATIN 20 MG TABLET PO SCH (20:14)
[2017-11-28] MEDS: GUAIFENESIN 200 MG TABLET PO SCH ×4 (05:18→20:35)
[2017-11-28 07:41] VITALS: BP 146/95
[2017-11-28] MEDS: VALPROIC ACID 250 MG CAPSULE PO SCH ×2 (08:40→20:37)
[2017-11-28] MEDS: SERTRALINE 50MG TABLET PO SCH (08:40)
[2017-11-28] MEDS: FOLIC ACID 1 MG TABLET PO SCH (08:40)
[2017-11-28] MEDS: THIAMINE 100MG TABLET PO SCH (08:40)
[2017-11-28] MEDS: GABAPENTIN 100 MG CAPSULE PO SCH ×3 (08:41→20:37)
[2017-11-28] MEDS: OLANZAPINE 5 MG TABLET PO SCH ×2 (08:41→20:36)
[2017-11-28] MEDS: LOSARTAN 50MG TABLET PO SCH (08:41)
[2017-11-28] MEDS: AMLODIPINE 10 MG TAB PO SCH (08:41)
[2017-11-28] MEDS: METOPROLOL SUCCINATE 25 MG TAB.ER.24H PO SCH ×2 (08:41→20:35)
[2017-11-28] MEDS: ACETAMINOPHEN 325 MG TABLET PO PRN (09:01)
[2017-11-28 19:44] VITALS: BP 123/80
[2017-11-28] MEDS: MELATONIN 5 MG TABLET PO SCH (20:37)
[2017-11-28] MEDS: SIMVASTATIN 20 MG TABLET PO SCH (20:37)
[2017-11-29] MEDS: GUAIFENESIN 200 MG TABLET PO SCH ×4 (07:28→20:28)
[2017-11-29 07:30] VITALS: BP 131/88
[2017-11-29] MEDS: FOLIC ACID 1 MG TABLET PO SCH (08:40)
[2017-11-29] MEDS: OLANZAPINE 5 MG TABLET PO SCH ×2 (08:40→20:30)
[2017-11-29] MEDS: AMLODIPINE 10 MG TAB PO SCH (08:40)
[2017-11-29] MEDS: THIAMINE 100MG TABLET PO SCH (08:41)
[2017-11-29] MEDS: GABAPENTIN 100 MG CAPSULE PO SCH ×3 (08:41→20:29)
[2017-11-29] MEDS: LOSARTAN 50MG TABLET PO SCH (08:41)
[2017-11-29] MEDS: SERTRALINE 50MG TABLET PO SCH (08:41)
[2017-11-29] MEDS: METOPROLOL SUCCINATE 25 MG TAB.ER.24H PO SCH ×2 (08:42→20:28)
[2017-11-29] MEDS: ACETAMINOPHEN 325 MG TABLET PO PRN (08:42)
[2017-11-29] MEDS: VALPROIC ACID 250 MG CAPSULE PO SCH ×2 (08:42→20:30)
[2017-11-29 19:27] VITALS: BP 138/93
[2017-11-29] MEDS: SIMVASTATIN 20 MG TABLET PO SCH (20:29)
[2017-11-29] MEDS: MELATONIN 5 MG TABLET PO SCH (20:30)
[2017-11-30] MEDS: GUAIFENESIN 200 MG TABLET PO SCH ×4 (05:48→20:27)
[2017-11-30 07:40] VITALS: BP 133/88
[2017-11-30] MEDS: GABAPENTIN 100 MG CAPSULE PO SCH ×3 (08:12→20:26)
[2017-11-30] MEDS: ACETAMINOPHEN 325 MG TABLET PO PRN ×2 (08:12→20:28)
[2017-11-30] MEDS: LOSARTAN 50MG TABLET PO SCH (08:12)
[2017-11-30] MEDS: AMLODIPINE 10 MG TAB PO SCH (08:12)
[2017-11-30] MEDS: OLANZAPINE 5 MG TABLET PO SCH ×2 (08:13→20:28)
[2017-11-30] MEDS: FOLIC ACID 1 MG TABLET PO SCH (08:14)
[2017-11-30] MEDS: SERTRALINE 50MG TABLET PO SCH (08:14)
[2017-11-30] MEDS: METOPROLOL SUCCINATE 25 MG TAB.ER.24H PO SCH ×2 (08:15→20:27)
[2017-11-30] MEDS: THIAMINE 100MG TABLET PO SCH (08:15)
[2017-11-30] MEDS: VALPROIC ACID 250 MG CAPSULE PO SCH ×2 (08:17→20:28)
[2017-11-30 19:30] VITALS: BP 143/89
[2017-11-30] MEDS: MELATONIN 5 MG TABLET PO SCH (20:26)
[2017-11-30] MEDS: SIMVASTATIN 20 MG TABLET PO SCH (20:28)
[2017-12-01] MEDS: GUAIFENESIN 200 MG TABLET PO SCH ×4 (05:55→21:01)
[2017-12-01 07:59] VITALS: BP 127/85
[2017-12-01] MEDS: THIAMINE 100MG TABLET PO SCH (08:28)
[2017-12-01] MEDS: FOLIC ACID 1 MG TABLET PO SCH (08:28)
[2017-12-01] MEDS: GABAPENTIN 100 MG CAPSULE PO SCH ×3 (08:28→21:01)
[2017-12-01] MEDS: VALPROIC ACID 250 MG CAPSULE PO SCH ×2 (08:28→21:00)
[2017-12-01] MEDS: ACETAMINOPHEN 325 MG TABLET PO PRN (08:28)
[2017-12-01] MEDS: AMLODIPINE 10 MG TAB PO SCH (08:28)
[2017-12-01] MEDS: SERTRALINE 50MG TABLET PO SCH (08:28)
[2017-12-01] MEDS: METOPROLOL SUCCINATE 25 MG TAB.ER.24H PO SCH ×2 (08:28→21:01)
[2017-12-01] MEDS: LOSARTAN 50MG TABLET PO SCH (08:29)
[2017-12-01] MEDS: OLANZAPINE 5 MG TABLET PO SCH ×2 (08:31→21:00)
[2017-12-01 20:00] VITALS: BP 142/94
[2017-12-01] MEDS: SIMVASTATIN 20 MG TABLET PO SCH (21:02)
[2017-12-01] MEDS: MELATONIN 5 MG TABLET PO SCH (21:08)
[2017-12-02] MEDS: GUAIFENESIN 200 MG TABLET PO SCH ×4 (05:43→20:06)
[2017-12-02 07:24] VITALS: BP 126/82
[2017-12-02] MEDS: SERTRALINE 50MG TABLET PO SCH (09:21)
[2017-12-02] MEDS: AMLODIPINE 10 MG TAB PO SCH (09:21)
[2017-12-02] MEDS: VALPROIC ACID 250 MG CAPSULE PO SCH ×2 (09:21→20:05)
[2017-12-02] MEDS: FOLIC ACID 1 MG TABLET PO SCH (09:21)
[2017-12-02] MEDS: LOSARTAN 50MG TABLET PO SCH (09:21)
[2017-12-02] MEDS: THIAMINE 100MG TABLET PO SCH (09:21)
[2017-12-02] MEDS: OLANZAPINE 5 MG TABLET PO SCH ×2 (09:22→20:07)
[2017-12-02] MEDS: METOPROLOL SUCCINATE 25 MG TAB.ER.24H PO SCH ×2 (09:22→20:06)
[2017-12-02] MEDS: GABAPENTIN 100 MG CAPSULE PO SCH ×3 (09:23→20:06)
[2017-12-02] MEDS: ACETAMINOPHEN 325 MG TABLET PO PRN (09:26)
[2017-12-02 19:27] VITALS: BP 125/78
[2017-12-02] MEDS: MELATONIN 5 MG TABLET PO SCH (20:06)
[2017-12-02] MEDS: SIMVASTATIN 20 MG TABLET PO SCH (20:06)
[2017-12-03] MEDS: GUAIFENESIN 200 MG TABLET PO SCH ×4 (06:04→21:00)
[2017-12-03 07:55] VITALS: BP 137/91
[2017-12-03] MEDS: ACETAMINOPHEN 325 MG TABLET PO PRN ×2 (08:27→20:49)
[2017-12-03] MEDS: VALPROIC ACID 250 MG CAPSULE PO SCH ×2 (08:27→20:48)
[2017-12-03] MEDS: GABAPENTIN 100 MG CAPSULE PO SCH ×3 (08:27→20:49)
[2017-12-03] MEDS: METOPROLOL SUCCINATE 25 MG TAB.ER.24H PO SCH ×2 (08:27→20:49)
[2017-12-03] MEDS: LOSARTAN 50MG TABLET PO SCH (08:27)
[2017-12-03] MEDS: AMLODIPINE 10 MG TAB PO SCH (08:27)
[2017-12-03] MEDS: THIAMINE 100MG TABLET PO SCH (08:27)
[2017-12-03] MEDS: FOLIC ACID 1 MG TABLET PO SCH (08:27)
[2017-12-03] MEDS: SERTRALINE 50MG TABLET PO SCH (08:27)
[2017-12-03] MEDS: OLANZAPINE 5 MG TABLET PO SCH ×2 (08:28→20:48)
[2017-12-03 19:55] VITALS: BP 131/85
[2017-12-03] MEDS: MELATONIN 5 MG TABLET PO SCH (20:48)
[2017-12-03] MEDS: SIMVASTATIN 20 MG TABLET PO SCH (20:49)
[2017-12-04] MEDS: GUAIFENESIN 200 MG TABLET PO SCH ×3 (05:54→16:10)
[2017-12-04 08:01] VITALS: BP 125/88
[2017-12-04] MEDS: VALPROIC ACID 250 MG CAPSULE PO SCH ×2 (08:32→20:14)
[2017-12-04] MEDS: THIAMINE 100MG TABLET PO SCH (08:32)
[2017-12-04] MEDS: OLANZAPINE 5 MG TABLET PO SCH ×2 (08:33→20:22)
[2017-12-04] MEDS: GABAPENTIN 100 MG CAPSULE PO SCH ×3 (08:33→20:13)
[2017-12-04] MEDS: METOPROLOL SUCCINATE 25 MG TAB.ER.24H PO SCH ×2 (08:33→20:14)
[2017-12-04] MEDS: FOLIC ACID 1 MG TABLET PO SCH (08:33)
[2017-12-04] MEDS: LOSARTAN 50MG TABLET PO SCH (08:33)
[2017-12-04] MEDS: AMLODIPINE 10 MG TAB PO SCH (08:33)
[2017-12-04] MEDS: SERTRALINE 50MG TABLET PO SCH (08:33)
[2017-12-04] MEDS: ACETAMINOPHEN 325 MG TABLET PO PRN ×2 (09:38→20:14)
[2017-12-04] MEDS ORDERED: AMLO10TA6 PO (16:37)
[2017-12-04] MEDS ORDERED: VALP250C PO (16:37)
[2017-12-04] MEDS ORDERED: LOSA50TA2 PO ×2 (16:37)
[2017-12-04] MEDS ORDERED: MELA5TAB19 PO (16:37)
[2017-12-04] MEDS ORDERED: SIMV20TA3 PO ×2 (16:37)
[2017-12-04] MEDS ORDERED: METO25TA91 PO (16:37)
[2017-12-04] MEDS ORDERED: GABA-826 PO ×2 (16:37)
[2017-12-04] MEDS ORDERED: OLAN5TAB9 PO (16:37)
[2017-12-04] MEDS ORDERED: SERT50TA5 PO (16:37)
[2017-12-04 19:36] VITALS: BP 137/88
[2017-12-04] MEDS: SIMVASTATIN 20 MG TABLET PO SCH (20:14)
[2017-12-04] MEDS: MELATONIN 5 MG TABLET PO SCH (20:14)
[2017-12-05 07:30] VITALS: BP 136/87
[2017-12-05] MEDS: THIAMINE 100MG TABLET PO SCH (09:13)
[2017-12-05] MEDS: AMLODIPINE 10 MG TAB PO SCH (09:14)
[2017-12-05] MEDS: VALPROIC ACID 250 MG CAPSULE PO SCH (09:14)
[2017-12-05] MEDS: METOPROLOL SUCCINATE 25 MG TAB.ER.24H PO SCH (09:14)
[2017-12-05] MEDS: OLANZAPINE 5 MG TABLET PO SCH (09:14)
[2017-12-05] MEDS: FOLIC ACID 1 MG TABLET PO SCH (09:14)
[2017-12-05] MEDS: GABAPENTIN 100 MG CAPSULE PO SCH (09:14)
[2017-12-05] MEDS: LOSARTAN 50MG TABLET PO SCH (09:15)
[2017-12-05] MEDS: SERTRALINE 50MG TABLET PO SCH (09:15)
== END 2017-12-05 10:45 | disposition home or self-care (01) | DRG 885 ==
LOC: 3E 16:13
PROVIDERS: ADMIT Psychiatry & Neurology Psychosomatic Medicine; ATTEND Psychiatry & Neurology Psychosomatic Medicine
DX: F20.0 Paranoid schizophrenia (principal); K22.6 Gastro-esophageal laceration-hemorrhage syndrome; R45.851 Suicidal ideations; F32.9 Major depressive disorder, single episode, unspecified; Z91.5 Personal history of self-harm; F10.20 Alcohol dependence, uncomplicated; F15.10 Other stimulant abuse, uncomplicated; I10 Essential (primary) hypertension; E78.5 Hyperlipidemia, unspecified; K21.9 Gastro-esophageal reflux disease without esophagitis; I25.10 Atherosclerotic heart disease of native coronary artery without angina pectoris; F12.90 Cannabis use, unspecified, uncomplicated; F17.210 Nicotine dependence, cigarettes, uncomplicated; G47.00 Insomnia, unspecified
CPT/HCPCS: 36415; 80048; 80053; 80061; 81003; 82140; 82607; 82746; 84439; 84443; 85025; 85651; 86592; 93005; 92523-GN

== ENCOUNTER 2017-12-10 22:48 | Observation (INO) | payer MEDICARE, MEDICAID ==
[~2017-12-10] VITALS: Ht 193 cm; Wt 91.8 kg
[~2017-12-10 22:48] MED LIST changes: +AMLO10TA6 PO; +LOSA50TA2 PO; +MELA5TAB19 PO; +METO25TA91 PO; +SERT50TA5 PO
[2017-12-10 23:16] LABS: BASOPHILS # (AUTO) 0.07 x10^3/uL (0-0.1); BASOPHILS % (AUTO) 1 % (0-1); EOSINOPHILS # (AUTO) 0.27 x10^3/uL (0-0.4); EOSINOPHILS % (AUTO) 5 % (1-7); LYMPHOCYTES # (AUTO) 2.09 x10^3/uL (1-3.4); LYMPHOCYTES % (AUTO) 39 % (22-44); MD NO; MEAN CORPUSCULAR HEMOGLOBIN 27.7 pg (27.5-34.5); MEAN CORPUSCULAR HGB CONC 32.6 g/dL (33.2-36.2); MEAN CORPUSCULAR VOLUME 84.9 fL (81-97); MEAN PLATELET VOLUME 9.9 fL (7.4-10.4); MONOCYTES # (AUTO) 0.48 x10^3/uL (0.2-0.8); MONOCYTES % (AUTO) 9 % (2-9); NEUTROPHILS # (AUTO) 2.49 x10^3/uL (1.8-6.8); NEUTROPHILS % (AUTO) 46 % (42-75); PLATELET COUNT 235 x10^3/uL (130-400); RED BLOOD COUNT 4.33 x10^6/uL (4.38-5.82); RED CELL DISTRIBUTION WIDTH 17.1 % (9.4-14.8)
[2017-12-10 23:29] LABS: ALANINE AMINOTRANSFERASE 41 U/L (12-78); ALBUMIN 3.5 g/dL (3.4-5.0); ANION GAP 9 mmol/L (5-15); CALCIUM 7.9 mg/dL (8.5-10.1); CHLORIDE 109 mmol/L (98-107)
[2017-12-10 23:30] LABS: SALICYLATE LEVEL < 1.7 mg/dL (2.8-20.0)
[2017-12-10 23:31] LABS: ALKALINE PHOSPHATASE 85 U/L (45-117); BILIRUBIN,TOTAL 0.2 mg/dL (0.2-1.0); CREATININE 0.81 mg/dL (0.7-1.3); TOTAL PROTEIN 7.8 g/dL (6.4-8.2)
[2017-12-10 23:33] LABS: ACETAMINOPHEN < 2 mcg/mL (10-30)
[2017-12-11 00:55] LABS: AMPHETAMINE SCREEN, URINE Negative (Negative); BARBITURATE SCREEN, URINE Negative (Negative); BENZODIAZEPINE SCREEN, URINE Positive (Negative); CANNABINOID SCREEN, URINE Negative (Negative); COCAINE SCREEN, URINE Negative (Negative); METHADONE SCREEN, URINE Negative (Negative); OPIATE SCREEN, URINE Negative (Negative)
[2017-12-11] MEDS ORDERED: GABAPENTIN 100 MG CAPSULE PO SCH (05:30)
[2017-12-11] MEDS ORDERED: DOCUSATE 100 MG CAPSULE PO PRN (05:30)
[2017-12-11] MEDS ORDERED: ONDANSETRON ODT 4 MG PO PRN (05:30)
[2017-12-11] MEDS ORDERED: ACETAMINOPHEN 325 MG TABLET PO PRN (05:30)
[2017-12-11 05:59] VITALS: BP 171/93
[2017-12-11] MEDS ORDERED: DIVALPROEX 250 MG TABLET.DR ONE (06:35)
[2017-12-11] MEDS ORDERED: SERTRALINE 50MG TABLET ONE (06:36)
[2017-12-11] MEDS ORDERED: OLANZAPINE 5 MG TABLET ONE (06:36)
[2017-12-11] MEDS: SERTRALINE 50MG TABLET PO SCH ×2 (06:37→08:22)
[2017-12-11] MEDS: OLANZAPINE 5 MG TABLET PO SCH ×2 (06:37→08:22)
[2017-12-11] MEDS: METOPROLOL SUCCINATE 25 MG TAB.ER.24H PO SCH ×2 (06:37→08:21)
[2017-12-11] MEDS: GABAPENTIN 100 MG CAPSULE PO SCH ×3 (06:38→08:49)
[2017-12-11] MEDS: AMLODIPINE 10 MG TAB PO SCH ×2 (06:38→08:21)
[2017-12-11] MEDS: LOSARTAN 50MG TABLET PO SCH ×2 (06:39→08:22)
[2017-12-11 08:00] VITALS: BP 127/82
[2017-12-11] MEDS ORDERED: VALPROIC ACID 250 MG CAPSULE PO SCH (09:00)
[2017-12-11] MEDS ORDERED: MELATONIN 5 MG TABLET PO SCH (21:00)
[2017-12-11] MEDS ORDERED: SIMVASTATIN 20 MG TABLET PO SCH (21:00)
== END 2017-12-11 15:30 ==
LOC: ED 22:58 → EDIP 12-11 03:33 → 2N 12-11 05:52
PROVIDERS: ADMIT Internal Medicine; ATTEND Internal Medicine
DX: F20.0 Paranoid schizophrenia (principal); R45.851 Suicidal ideations; F41.9 Anxiety disorder, unspecified; F10.20 Alcohol dependence, uncomplicated; E78.5 Hyperlipidemia, unspecified; I25.10 Atherosclerotic heart disease of native coronary artery without angina pectoris; K44.9 Diaphragmatic hernia without obstruction or gangrene; K22.6 Gastro-esophageal laceration-hemorrhage syndrome; K21.9 Gastro-esophageal reflux disease without esophagitis; E11.9 Type 2 diabetes mellitus without complications; I11.0 Hypertensive heart disease with heart failure; I50.9 Heart failure, unspecified; J45.909 Unspecified asthma, uncomplicated; F17.210 Nicotine dependence, cigarettes, uncomplicated; Z91.19 Patient's noncompliance with other medical treatment and regimen; Z91.5 Personal history of self-harm
CPT/HCPCS: 36415; 80053; 80307; 80329; 85025; 99285; G0378; G0480

== ENCOUNTER 2017-12-19 10:17 | Inpatient (IN) | payer MEDICARE, MEDICAID ==
[~2017-12-19] VITALS: Ht 182.9 cm; Wt 98.2 kg
[2017-12-19] MEDS ORDERED: PROPOFOL 100 ML IV PRN ×2 (10:32→15:26)
[2017-12-19] MEDS ORDERED: FENTANYL PF 100 MCG/2ML IV ONE (11:00)
[2017-12-19] MEDS ORDERED: ETOMIDATE 20 MG/10 ML IV ONE (11:00)
[2017-12-19] MEDS ORDERED: SODIUM CHLORIDE 0.9% 1,000ML IVBOLUS ONE ×2 (11:00→15:00)
[2017-12-19] MEDS ORDERED: ROCURONIUM 10 MG/ML,10ML IVPush ONE (11:00)
[2017-12-19] MEDS ORDERED: NALOXONE 1 MG/ML, 2ML IVPush ONE (11:00)
[2017-12-19] MEDS ORDERED: FENTANYL PF 100 MCG/2ML ONE (11:14)
[2017-12-19 11:15] LABS: MICROSCOPIC NOT IND
[2017-12-19] MEDS ORDERED: NALOXONE 1 MG/ML, 2ML ONE (11:15)
[2017-12-19 11:17] LABS: CULTURE INDICATED? NO
[2017-12-19 11:33] LABS: BASOPHILS # (AUTO) 0.03 x10^3/uL (0-0.1); BASOPHILS % (AUTO) 0 % (0-1); EOSINOPHILS # (AUTO) 0.25 x10^3/uL (0-0.4); EOSINOPHILS % (AUTO) 4 % (1-7); LYMPHOCYTES % (AUTO) 34 % (22-44); MD NO; MEAN CORPUSCULAR HEMOGLOBIN 27.2 pg (27.5-34.5); MEAN CORPUSCULAR HGB CONC 32.1 g/dL (33.2-36.2); MEAN CORPUSCULAR VOLUME 84.8 fL (81-97); MEAN PLATELET VOLUME 9.7 fL (7.4-10.4); MONOCYTES # (AUTO) 0.65 x10^3/uL (0.2-0.8); MONOCYTES % (AUTO) 9 % (2-9); NEUTROPHILS # (AUTO) 3.82 x10^3/uL (1.8-6.8); NEUTROPHILS % (AUTO) 54 % (42-75); PLATELET COUNT 192 x10^3/uL (130-400); RED BLOOD COUNT 5.09 x10^6/uL (4.38-5.82); RED CELL DISTRIBUTION WIDTH 17.3 % (9.4-14.8)
[2017-12-19 11:38] LABS: INTERNATIONAL NORMALIZED RATIO 1.08 (0.93-1.1); PROTHROMBIN TIME 11.2 Seconds (9.6-11.5)
[2017-12-19 11:42] LABS: ANION GAP 9 mmol/L (5-15); CALCIUM 8.2 mg/dL (8.5-10.1); CHLORIDE 110 mmol/L (98-107)
[2017-12-19 11:48] LABS: ALANINE AMINOTRANSFERASE 44 U/L (12-78); ALKALINE PHOSPHATASE 52 U/L (45-117); BILIRUBIN,TOTAL 0.3 mg/dL (0.2-1.0); CREATININE 0.88 mg/dL (0.7-1.3); T4 (THYROXINE) 5.8 mcg/dL (4.5-12.1); TOTAL PROTEIN 8.5 g/dL (6.4-8.2); TROPONIN I < 0.015 ng/mL (0.000-0.045)
[2017-12-19] MEDS ORDERED: PIPERACILLIN/TAZO/PMX 3.375GM 50 ML ONE (11:52)
[2017-12-19 11:54] LABS: THYROID STIMULATING HORMONE 0.674 mIU/L (0.358-3.740)
[2017-12-19] MEDS ORDERED: PIPERACILLIN/TAZO/PMX 3.375GM 50 ML IVPB ONE (12:00)
[2017-12-19] MEDS ORDERED: POTASSIUM CHLORIDE 20 MEQ, MAGNESIUM SULFATE 2 GM, THIAMINE 200 MG, MVI ADULT 10 ML, FO... IV SCH (12:13)
[2017-12-19 12:15] LABS: AMPHETAMINE SCREEN, URINE Negative (Negative); BARBITURATE SCREEN, URINE Negative (Negative); BENZODIAZEPINE SCREEN, URINE Negative (Negative); CANNABINOID SCREEN, URINE Negative (Negative); COCAINE SCREEN, URINE Negative (Negative); METHADONE SCREEN, URINE Negative (Negative); OPIATE SCREEN, URINE Negative (Negative)
[2017-12-19] MEDS ORDERED: morphine SULFATE 10 MG/ML, 1ML IVPush PRN (12:30)
[2017-12-19] MEDS ORDERED: ONDANSETRON 2MG/ML, 2ML IVPush PRN (12:30)
[2017-12-19] MEDS ORDERED: ONDANSETRON ODT 4 MG PO PRN (12:30)
[2017-12-19] MEDS ORDERED: LORazepam 2 MG/ML, 1ML IVPush PRN (12:30)
[2017-12-19] MEDS ORDERED: OXYcodone IR 5MG TABLET PO PRN (12:30)
[2017-12-19] MEDS ORDERED: BISACODYL 10 MG SUPP PR PRN (12:30)
[2017-12-19] MEDS ORDERED: POLYETHYLENE GLYCOL 17 GM PACKET PO PRN (12:30)
[2017-12-19 12:58] LABS: ACETAMINOPHEN < 2 mcg/mL (10-30); SALICYLATE LEVEL < 1.7 mg/dL (2.8-20.0)
[2017-12-19] MEDS ORDERED: PHARMACY MAY ADJ FOR RENAL FX MC SCH (15:30)
[2017-12-19] MEDS ORDERED: GLUCAGON 1 MG IM PRN (15:30)
[2017-12-19] MEDS ORDERED: PROPOFOL 10 MG/ML, 20ML IV ONE (15:30)
[2017-12-19] MEDS ORDERED: DEXTROSE 50%, 50ML SYRINGE IVPush PRN (15:30)
[2017-12-19] MEDS ORDERED: FENTANYL PF 100 MCG/2ML IVPush PRN (15:30)
[2017-12-19] MEDS ORDERED: LIDOCAINE-MPF 1%, 2ML ENDO PRN (15:30)
[2017-12-19] MEDS ORDERED: PROPOFOL 10 MG/ML, 20ML ONE (15:39)
[2017-12-19] MEDS ORDERED: PROPOFOL 10 MG/ML, 100ML IV ONE (15:39)
[2017-12-19] MEDS ORDERED: ETOMIDATE 20 MG/10 ML ONE (15:39)
[2017-12-19] MEDS ORDERED: ROCURONIUM 10MG/ML,5ML ONE (15:39)
[2017-12-19] MEDS ORDERED: FENTANYL PF 250 MCG/5ML ONE (15:39)
[2017-12-19] MEDS ORDERED: FAMOTIDINE 20 MG/2 ML ONE (15:59)
[2017-12-19] MEDS ORDERED: ALBUTEROL/IPRATROPIUM 2.5MG/0.5MG, 3 ML INLINE SCH (16:00)
[2017-12-19] MEDS: MIDAZOLAM HCL 50 MG in SODIUM CHLORIDE 0.9% 240 ML IV PRN (16:03)
[2017-12-19] MEDS: POTASSIUM CHLORIDE 20 MEQ, MAGNESIUM SULFATE 2 GM, THIAMINE 200 MG, MVI ADULT 10 ML, FO... IV SCH (16:05)
[2017-12-19] MEDS: ENOXAPARIN 40 MG/0.4 ML SQ SCH (16:05)
[2017-12-19] MEDS: AMPICILLIN/SULBACTAM 3 GM in SODIUM CHLORIDE 0.9% 100 ML IV SCH ×2 (16:05→21:22)
[2017-12-19 16:22] LABS: BASOPHILS # (AUTO) 0.02 x10^3/uL (0-0.1); BASOPHILS % (AUTO) 0 % (0-1); EOSINOPHILS # (AUTO) 0.07 x10^3/uL (0-0.4); EOSINOPHILS % (AUTO) 1 % (1-7); LYMPHOCYTES # (AUTO) 2.87 x10^3/uL (1-3.4); LYMPHOCYTES % (AUTO) 41 % (22-44); MD NO; MEAN CORPUSCULAR HEMOGLOBIN 28.7 pg (27.5-34.5); MEAN CORPUSCULAR HGB CONC 33.6 g/dL (33.2-36.2); MEAN CORPUSCULAR VOLUME 85.5 fL (81-97); MEAN PLATELET VOLUME 9.5 fL (7.4-10.4); MONOCYTES # (AUTO) 0.65 x10^3/uL (0.2-0.8); MONOCYTES % (AUTO) 9 % (2-9); NEUTROPHILS # (AUTO) 3.38 x10^3/uL (1.8-6.8); NEUTROPHILS % (AUTO) 48 % (42-75); PLATELET COUNT 164 x10^3/uL (130-400); RED CELL DISTRIBUTION WIDTH 17.2 % (9.4-14.8)
[2017-12-19 16:31] LABS: ANION GAP 12 mmol/L (5-15); CALCIUM 7.6 mg/dL (8.5-10.1); CHLORIDE 117 mmol/L (98-107); CREATININE 0.95 mg/dL (0.7-1.3); TRIGLYCERIDES 216 mg/dL (50-200)
[2017-12-19] MEDS ORDERED: FAMOTIDINE 20 MG/2 ML IV SCH (17:00)
[2017-12-19 18:33] LABS: TROPONIN I 0.023 ng/mL (0.000-0.045)
[2017-12-19] MEDS: ALBUTEROL/IPRATROPIUM 2.5MG/0.5MG, 3 ML INLINE SCH ×2 (18:33→22:41)
[2017-12-19] MEDS ORDERED: FAMOTIDINE 20 MG/2 ML IVPush SCH (21:00)
[2017-12-19] MEDS: FAMOTIDINE 20 MG/2 ML IV SCH (21:22)
[2017-12-20] MEDS: D5%-0.45% NACL 1,000 ML IV SCH ×4 (00:14→23:00)
[2017-12-20 01:26] LABS: TROPONIN I 0.029 ng/mL (0.000-0.045)
[2017-12-20] MEDS: ALBUTEROL/IPRATROPIUM 2.5MG/0.5MG, 3 ML INLINE SCH (02:20)
[2017-12-20 04:00] VITALS: BP 141/91
[2017-12-20] MEDS: MIDAZOLAM HCL 50 MG in SODIUM CHLORIDE 0.9% 240 ML IV PRN (04:16)
[2017-12-20] MEDS: AMPICILLIN/SULBACTAM 3 GM in SODIUM CHLORIDE 0.9% 100 ML IV SCH ×4 (04:17→23:00)
[2017-12-20 04:28] LABS: BASOPHILS # (AUTO) 0.03 x10^3/uL (0-0.1); BASOPHILS % (AUTO) 0 % (0-1); EOSINOPHILS # (AUTO) 0.11 x10^3/uL (0-0.4); EOSINOPHILS % (AUTO) 1 % (1-7); LYMPHOCYTES % (AUTO) 24 % (22-44); MD NO; MEAN CORPUSCULAR HGB CONC 32.7 g/dL (33.2-36.2); MEAN CORPUSCULAR VOLUME 85.7 fL (81-97); MEAN PLATELET VOLUME 9.6 fL (7.4-10.4); MONOCYTES # (AUTO) 1.26 x10^3/uL (0.2-0.8); MONOCYTES % (AUTO) 15 % (2-9); NEUTROPHILS # (AUTO) 5.22 x10^3/uL (1.8-6.8); NEUTROPHILS % (AUTO) 60 % (42-75); PLATELET COUNT 163 x10^3/uL (130-400); RED BLOOD COUNT 4.33 x10^6/uL (4.38-5.82); RED CELL DISTRIBUTION WIDTH 17.1 % (9.4-14.8)
[2017-12-20 04:35] LABS: ALANINE AMINOTRANSFERASE 41 U/L (12-78); ALBUMIN 3.1 g/dL (3.4-5.0); ANION GAP 9 mmol/L (5-15); CALCIUM 7.4 mg/dL (8.5-10.1); CHLORIDE 116 mmol/L (98-107); CREATININE 0.99 mg/dL (0.7-1.3)
[2017-12-20 04:38] LABS: ALKALINE PHOSPHATASE 41 U/L (45-117); BILIRUBIN,TOTAL 0.8 mg/dL (0.2-1.0); CHOL/HDL RATIO 2.9; CHOLESTEROL, TOTAL 117 mg/dL (140-239); HDL CHOL % 35 % (26-37); HDL CHOLESTEROL (DIRECT) 41 mg/dL (40-60); LDL CHOLESTEROL,CALCULATED 31 mg/dL (54-169); LDL/HDL RATIO 0.8 (0.5-3.0); TOTAL PROTEIN 6.8 g/dL (6.4-8.2); TRIGLYCERIDES 225 mg/dL (50-200); VLDL CHOLESTEROL 45 mg/dL (0-25)
[2017-12-20] MEDS: SENNA/DOCUSATE TABLET PO SCH (09:00)
[2017-12-20] MEDS ORDERED: LACTULOSE 20 GM/30 ML UDC NG PRN (09:00)
[2017-12-20] MEDS: FAMOTIDINE 20 MG/2 ML IV SCH ×2 (09:50→20:28)
[2017-12-20] MEDS: LABETALOL 5MG/ML, 20ML IVPush PRN ×2 (13:18→18:50)
[2017-12-20] MEDS ORDERED: hydrALAzine 20 MG/ML, 1ML IV PRN (15:30)
[2017-12-20] MEDS: INSULIN LISPRO 100 UNITS/ML, PEN SQ-INSULIN SCH ×2 (15:35→20:13)
[2017-12-20] MEDS: ENOXAPARIN 40 MG/0.4 ML SQ SCH (15:35)
[2017-12-20] MEDS: POTASSIUM CHLORIDE 20 MEQ, MAGNESIUM SULFATE 2 GM, THIAMINE 200 MG, MVI ADULT 10 ML, FO... IV SCH (17:34)
[2017-12-20 18:16] VITALS: BP 167/107
[2017-12-20 19:23] VITALS: BP 149/88
[2017-12-20] MEDS: OLANZAPINE 5 MG TABLET PO SCH (20:27)
[2017-12-20] MEDS: METOPROLOL SUCCINATE 25 MG TAB.ER.24H PO SCH (20:28)
[2017-12-20] MEDS: VALPROIC ACID 250 MG CAPSULE PO SCH (20:28)
[2017-12-21 03:39] VITALS: BP 140/89
[2017-12-21 05:23] LABS: BASOPHILS # (AUTO) 0.06 x10^3/uL (0-0.1); BASOPHILS % (AUTO) 1 % (0-1); EOSINOPHILS # (AUTO) 0.15 x10^3/uL (0-0.4); EOSINOPHILS % (AUTO) 2 % (1-7); LYMPHOCYTES # (AUTO) 2.18 x10^3/uL (1-3.4); LYMPHOCYTES % (AUTO) 33 % (22-44); MD NO; MEAN CORPUSCULAR HEMOGLOBIN 28.7 pg (27.5-34.5); MEAN CORPUSCULAR HGB CONC 33.5 g/dL (33.2-36.2); MEAN CORPUSCULAR VOLUME 85.6 fL (81-97); MEAN PLATELET VOLUME 9.7 fL (7.4-10.4); MONOCYTES # (AUTO) 0.99 x10^3/uL (0.2-0.8); MONOCYTES % (AUTO) 15 % (2-9); NEUTROPHILS # (AUTO) 3.31 x10^3/uL (1.8-6.8); NEUTROPHILS % (AUTO) 50 % (42-75); PLATELET COUNT 143 x10^3/uL (130-400); RED BLOOD COUNT 3.95 x10^6/uL (4.38-5.82); RED CELL DISTRIBUTION WIDTH 16.3 % (9.4-14.8)
[2017-12-21 05:30] LABS: ANION GAP 8 mmol/L (5-15); CALCIUM 7.2 mg/dL (8.5-10.1); CHLORIDE 108 mmol/L (98-107); CREATININE 0.66 mg/dL (0.7-1.3)
[2017-12-21] MEDS: AMPICILLIN/SULBACTAM 3 GM in SODIUM CHLORIDE 0.9% 100 ML IV SCH ×4 (05:33→23:31)
[2017-12-21] MEDS: INSULIN LISPRO 100 UNITS/ML, PEN SQ-INSULIN SCH ×4 (07:00→20:37)
[2017-12-21 07:30] VITALS: BP 146/86
[2017-12-21] MEDS: SENNA/DOCUSATE TABLET PO SCH (08:54)
[2017-12-21] MEDS: FAMOTIDINE 20 MG/2 ML IV SCH (08:54)
[2017-12-21] MEDS: METOPROLOL SUCCINATE 25 MG TAB.ER.24H PO SCH ×2 (08:54→20:36)
[2017-12-21] MEDS: VALPROIC ACID 250 MG CAPSULE PO SCH ×2 (08:55→20:36)
[2017-12-21] MEDS: AMLODIPINE 10 MG TAB PO SCH (08:55)
[2017-12-21] MEDS: OLANZAPINE 5 MG TABLET PO SCH ×2 (08:56→20:36)
[2017-12-21] MEDS: SERTRALINE 50MG TABLET PO SCH (08:56)
[2017-12-21] MEDS: D5%-0.45% NACL 1,000 ML IV SCH (10:36)
[2017-12-21 13:48] VITALS: BP 149/67
[2017-12-21] MEDS: POTASSIUM CHLORIDE 20 MEQ, MAGNESIUM SULFATE 2 GM, THIAMINE 200 MG, MVI ADULT 10 ML, FO... IV SCH (14:43)
[2017-12-21] MEDS: CHLORDIAZEPOXIDE 25 MG CAPSULE PO SCH ×2 (14:45→20:36)
[2017-12-21] MEDS: ENOXAPARIN 40 MG/0.4 ML SQ SCH (14:46)
[2017-12-21 18:45] VITALS: BP 133/72
[2017-12-21] MEDS ORDERED: ALBUTEROL/IPRATROPIUM 2.5MG/0.5MG, 3 ML NPPB SCH (20:00)
[2017-12-22 00:44] VITALS: BP 114/72
[2017-12-22] MEDS: D5%-0.45% NACL 1,000 ML IV SCH (03:13)
[2017-12-22] MEDS: AMPICILLIN/SULBACTAM 3 GM in SODIUM CHLORIDE 0.9% 100 ML IV SCH ×2 (05:22→10:28)
[2017-12-22 05:37] LABS: BASOPHILS # (AUTO) 0.06 x10^3/uL (0-0.1); BASOPHILS % (AUTO) 1 % (0-1); EOSINOPHILS # (AUTO) 0.27 x10^3/uL (0-0.4); EOSINOPHILS % (AUTO) 5 % (1-7); LYMPHOCYTES % (AUTO) 35 % (22-44); MD NO; MEAN CORPUSCULAR HEMOGLOBIN 27.9 pg (27.5-34.5); MEAN CORPUSCULAR HGB CONC 32.8 g/dL (33.2-36.2); MEAN CORPUSCULAR VOLUME 85.1 fL (81-97); MEAN PLATELET VOLUME 9.9 fL (7.4-10.4); MONOCYTES # (AUTO) 0.58 x10^3/uL (0.2-0.8); MONOCYTES % (AUTO) 11 % (2-9); NEUTROPHILS # (AUTO) 2.62 x10^3/uL (1.8-6.8); NEUTROPHILS % (AUTO) 48 % (42-75); PLATELET COUNT 140 x10^3/uL (130-400); RED BLOOD COUNT 4.04 x10^6/uL (4.38-5.82); RED CELL DISTRIBUTION WIDTH 16.3 % (9.4-14.8)
[2017-12-22 07:00] VITALS: BP 136/87
[2017-12-22] MEDS: INSULIN LISPRO 100 UNITS/ML, PEN SQ-INSULIN SCH ×2 (07:00→11:00)
[2017-12-22] MEDS: METOPROLOL SUCCINATE 25 MG TAB.ER.24H PO SCH (08:16)
[2017-12-22] MEDS: SERTRALINE 50MG TABLET PO SCH (08:16)
[2017-12-22] MEDS: AMLODIPINE 10 MG TAB PO SCH (08:17)
[2017-12-22] MEDS: SENNA/DOCUSATE TABLET PO SCH (08:17)
[2017-12-22] MEDS: OLANZAPINE 5 MG TABLET PO SCH (08:17)
[2017-12-22] MEDS: CHLORDIAZEPOXIDE 25 MG CAPSULE PO SCH (08:17)
[2017-12-22] MEDS: VALPROIC ACID 250 MG CAPSULE PO SCH (08:17)
[2017-12-22 14:00] VITALS: BP 154/87
== END 2017-12-22 16:16 | disposition home or self-care (01) | DRG 208 ==
LOC: ED 11:14 → EDIP 13:01 → CCU 14:17 → 4EST 12-20 18:30
PROVIDERS: ADMIT Internal Medicine; ATTEND Family Medicine
PROC: 5A1935Z Respiratory Ventilation, Less than 24 Consecutive Hours (ICD-10-PCS; principal; 2017-12-19)
PROC: 0BH18EZ Insertion of Endotracheal Airway into Trachea, Via Natural or Artificial Opening Endoscopic (ICD-10-PCS; 2017-12-19)
PROC: 0T9B70Z Drainage of Bladder with Drainage Device, Via Natural or Artificial Opening (ICD-10-PCS; 2017-12-19)
DX: J96.00 Acute respiratory failure, unspecified whether with hypoxia or hypercapnia (principal); J18.1 Lobar pneumonia, unspecified organism; G92 Toxic encephalopathy; F20.0 Paranoid schizophrenia; F10.229 Alcohol dependence with intoxication, unspecified; E03.9 Hypothyroidism, unspecified; E78.5 Hyperlipidemia, unspecified; I11.0 Hypertensive heart disease with heart failure; K21.9 Gastro-esophageal reflux disease without esophagitis; K72.90 Hepatic failure, unspecified without coma; I25.119 Atherosclerotic heart disease of native coronary artery with unspecified angina pectoris; I50.9 Heart failure, unspecified; E11.9 Type 2 diabetes mellitus without complications; F41.9 Anxiety disorder, unspecified; F32.9 Major depressive disorder, single episode, unspecified; Z59.0 Homelessness; I25.2 Old myocardial infarction; Z87.19 Personal history of other diseases of the digestive system; Z87.891 Personal history of nicotine dependence; Z91.19 Patient's noncompliance with other medical treatment and regimen; Z88.8 Allergy status to other drugs, medicaments and biological substances
CPT/HCPCS: 10060; 31500; 36415; 36600; 70450; 71045; 80048; 80053; 80061; 80164; 80307; 80329; 81003; 82140; 82803; 82962; 83605; 83690; 83735; 83880; 84100; 84145; 84436; 84443; 84478; 84484; 85025; 85610; 87040; 87070; 87081; 87205; 93005; 94002; 94003; 94150; 94640; 96365; 96366; 96367; 96375; G0378; J0295; J1650; J2250; J2543; J2704; J3010; J3411; J3475; J3480; J7042; J7620; Q0162; G0480; J0360; J2310; J3490; J7030; J7050

== ENCOUNTER 2018-01-20 07:40 | Emergency (ER) | payer MEDICARE ==
[~2018-01-20] VITALS: Ht 182.9 cm; Wt 85.0 kg
[~2018-01-20 07:40] MED LIST changes: +AMLO-150 PO; -AMLO5TAB7 PO; -TRAZ-136 PO; +TRAZ50TA66 PO
[2018-01-20] MEDS ORDERED: LORazepam 2 MG/ML, 1ML IVPush ONE (08:00)
[2018-01-20] MEDS ORDERED: SODIUM CHLORIDE FLUSH 10ML SYR IVF ONE (08:00)
[2018-01-20] MEDS ORDERED: ASPIRIN 81 MG TABLET CHEW PO ONE (08:00)
[2018-01-20] MEDS ORDERED: ASPIRIN 81 MG TABLET CHEW ONE (08:11)
[2018-01-20] MEDS ORDERED: LORazepam 2 MG/ML, 1ML ONE (08:11)
[2018-01-20 08:15] LABS: BASOPHILS # (AUTO) 0.04 x10^3/uL (0-0.1); BASOPHILS % (AUTO) 0 % (0-1); EOSINOPHILS # (AUTO) 0.01 x10^3/uL (0-0.4); EOSINOPHILS % (AUTO) 0 % (1-7); LYMPHOCYTES # (AUTO) 1.56 x10^3/uL (1-3.4); LYMPHOCYTES % (AUTO) 15 % (22-44); MD NO; MEAN CORPUSCULAR HEMOGLOBIN 27.6 pg (27.5-34.5); MEAN CORPUSCULAR HGB CONC 32.8 g/dL (33.2-36.2); MEAN CORPUSCULAR VOLUME 83.9 fL (81-97); MEAN PLATELET VOLUME 9.9 fL (7.4-10.4); MONOCYTES % (AUTO) 7 % (2-9); NEUTROPHILS # (AUTO) 8.18 x10^3/uL (1.8-6.8); NEUTROPHILS % (AUTO) 78 % (42-75); PLATELET COUNT 209 x10^3/uL (130-400); RED BLOOD COUNT 4.82 x10^6/uL (4.38-5.82)
[2018-01-20 08:25] LABS: ANION GAP 17 mmol/L (5-15); CALCIUM 8.5 mg/dL (8.5-10.1); CHLORIDE 101 mmol/L (98-107); CREATININE 1.06 mg/dL (0.7-1.3)
[2018-01-20 08:29] LABS: TROPONIN I 0.031 ng/mL (0.000-0.045)
[2018-01-20 10:12] VITALS: BP 148/66
== END 2018-01-20 10:15 | disposition home or self-care (01) ==
LOC: ED 08:54
DX: R07.89 Other chest pain (principal); F10.129 Alcohol abuse with intoxication, unspecified; F15.129 Other stimulant abuse with intoxication, unspecified; I25.2 Old myocardial infarction; Z72.9 Problem related to lifestyle, unspecified; Z71.41 Alcohol abuse counseling and surveillance of alcoholic
CPT/HCPCS: 36415; 71045; 80048; 80307; 82040; 83880; 84484; 85025; 93005; 96374; 99284; J2060

== ENCOUNTER 2018-01-22 03:59 | Emergency (ER) | payer MEDICARE ==
[~2018-01-22] VITALS: Ht 193 cm; Wt 91.0 kg
[2018-01-22] MEDS ORDERED: LORazepam 2 MG/ML, 1ML ONE (04:42)
[2018-01-22] MEDS ORDERED: ONDANSETRON 2MG/ML, 2ML ONE (04:42)
[2018-01-22] MEDS ORDERED: FAMOTIDINE 20 MG/2 ML ONE (04:43)
[2018-01-22] MEDS ORDERED: ONDANSETRON 2MG/ML, 2ML IVPush ONE (05:00)
[2018-01-22] MEDS ORDERED: FAMOTIDINE 20 MG/2 ML IVP ONE (05:00)
[2018-01-22] MEDS ORDERED: LORazepam 2 MG/ML, 1ML IVPush ONE (05:00)
[2018-01-22] MEDS ORDERED: SODIUM CHLORIDE FLUSH 10ML SYR IVF ONE (05:00)
[2018-01-22 05:15] LABS: BASOPHILS # (AUTO) 0.04 x10^3/uL (0-0.1); BASOPHILS % (AUTO) 1 % (0-1); EOSINOPHILS # (AUTO) 0.02 x10^3/uL (0-0.4); EOSINOPHILS % (AUTO) 0 % (1-7); LYMPHOCYTES # (AUTO) 1.23 x10^3/uL (1-3.4); LYMPHOCYTES % (AUTO) 17 % (22-44); MD NO; MEAN CORPUSCULAR HEMOGLOBIN 27.7 pg (27.5-34.5); MEAN CORPUSCULAR VOLUME 84.1 fL (81-97); MEAN PLATELET VOLUME 10.1 fL (7.4-10.4); MONOCYTES # (AUTO) 0.59 x10^3/uL (0.2-0.8); MONOCYTES % (AUTO) 8 % (2-9); NEUTROPHILS # (AUTO) 5.47 x10^3/uL (1.8-6.8); NEUTROPHILS % (AUTO) 74 % (42-75); PLATELET COUNT 191 x10^3/uL (130-400); RED BLOOD COUNT 5.06 x10^6/uL (4.38-5.82); RED CELL DISTRIBUTION WIDTH 15.9 % (9.4-14.8)
[2018-01-22 05:28] LABS: ALBUMIN 3.6 g/dL (3.4-5.0); ANION GAP 12 mmol/L (5-15); CALCIUM 8.9 mg/dL (8.5-10.1); CHLORIDE 96 mmol/L (98-107)
[2018-01-22 05:29] LABS: TROPONIN I 0.023 ng/mL (0.000-0.045)
[2018-01-22 05:30] LABS: ALANINE AMINOTRANSFERASE 74 U/L (12-78); ALKALINE PHOSPHATASE 69 U/L (45-117); BILIRUBIN,TOTAL 0.9 mg/dL (0.2-1.0); CREATININE 0.94 mg/dL (0.7-1.3); TOTAL PROTEIN 8.6 g/dL (6.4-8.2)
[2018-01-22] MEDS ORDERED: KETOROLAC 30 MG/1 ML ONE (06:13)
[2018-01-22] MEDS ORDERED: KETOROLAC 30 MG/1 ML IVPush ONE (06:30)
[2018-01-22] MEDS ORDERED: KETOROLAC 30 MG/1 ML IM ONE (06:30)
[2018-01-22 06:41] VITALS: BP 156/97
== END 2018-01-22 06:47 | disposition home or self-care (01) ==
LOC: ED 05:23
DX: I11.0 Hypertensive heart disease with heart failure (principal); R07.1 Chest pain on breathing; I50.9 Heart failure, unspecified; I25.2 Old myocardial infarction; J45.909 Unspecified asthma, uncomplicated
CPT/HCPCS: 36415; 71045; 76700; 80053; 80307; 83690; 84484; 85025; 93005; 96374; 96375; 99284; J1885; J2060; J2405; J3490

== ENCOUNTER 2018-06-12 13:30 | Emergency (ER) | payer MEDICARE ==
[~2018-06-12 13:30] MED LIST changes: -AMLO10TA6 PO; +AMLO10TA8 PO; +LOSA50TA14 PO; -LOSA50TA7 PO; +SERT50TA28 PO; -SERT50TA5 PO
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
[2018-06-12 13:58] LABS: BASOPHILS # (AUTO) 0.05 x10^3/uL (0-0.1); BASOPHILS % (AUTO) 1 % (0-1); EOSINOPHILS # (AUTO) 0.05 x10^3/uL (0-0.4); EOSINOPHILS % (AUTO) 1 % (1-7); LYMPHOCYTES # (AUTO) 2.24 x10^3/uL (1-3.4); LYMPHOCYTES % (AUTO) 43 % (22-44); MD NO; MEAN CORPUSCULAR HEMOGLOBIN 25.9 pg (27.5-34.5); MEAN CORPUSCULAR HGB CONC 32.6 g/dL (33.2-36.2); MEAN CORPUSCULAR VOLUME 79.5 fL (81-97); MEAN PLATELET VOLUME 9.1 fL (7.4-10.4); MONOCYTES % (AUTO) 8 % (2-9); NEUTROPHILS # (AUTO) 2.52 x10^3/uL (1.8-6.8); NEUTROPHILS % (AUTO) 48 % (42-75); PLATELET COUNT 234 x10^3/uL (130-400); RED BLOOD COUNT 5.29 x10^6/uL (4.38-5.82); RED CELL DISTRIBUTION WIDTH 16.7 % (9.4-14.8)
[2018-06-12 14:08] LABS: ALBUMIN 4.1 g/dL (3.4-5.0); ANION GAP 8 mmol/L (5-15); CALCIUM 8.6 mg/dL (8.5-10.1); CHLORIDE 112 mmol/L (98-107)
[2018-06-12 14:20] LABS: ACETAMINOPHEN < 2 mcg/mL (10-30); SALICYLATE LEVEL < 1.7 mg/dL (2.8-20.0)
--- NOTE | 2018-06-12 14:37 | NUR ---
PT RESTING IN GURNEY WITH SITTER AT BEDSIDE, PT AMBULATED TO BATHROOM WITH SITTER BUT UNABLE TO OBTAIN URINE SAMPLE AT THIS TIME. WCTM
[2018-06-12 15:45] LABS: AMPHETAMINE SCREEN, URINE Positive (Negative); BARBITURATE SCREEN, URINE Negative (Negative); CANNABINOID SCREEN, URINE Negative (Negative); COCAINE SCREEN, URINE Negative (Negative); METHADONE SCREEN, URINE Negative (Negative); OPIATE SCREEN, URINE Negative (Negative)
[2018-06-12 15:52] LABS: BENZODIAZEPINE SCREEN, URINE Negative (Negative)
--- NOTE | 2018-06-12 15:56 | NUR ---
PT SLEEPING IN GURNEY, EQUAL CHEST RISE AND FALL. SITTER AT BEDSIDE
--- NOTE | 2018-06-12 16:58 | NUR ---
PT REQUESTING BELONGINGS, PT EDUCATED ON NEED TO KEEP BELONGINGS LOCKED UP, [facility]ALLET PROVIDED TO PT TO OBTAIN PHONE NUMBER AND PHONE CALL MADE. DINNER TRAY ORDERED
--- NOTE | 2018-06-12 19:02 | NUR ---
PT SLEEPING IN GURNEY, EQUAL CHEST RISE AND FALL. SITTER AT BEDSIDE, BA STILL >0.08
--- NOTE | 2018-06-12 20:08 | NUR ---
PT SLEEPING IN GURNEY, EQUAL CHEST RISE AND FALL. SITTER AT BEDSIDE
--- NOTE | 2018-06-12 21:00 | NUR ---
PT SLEEPING IN GURNEY, EQUAL CHEST RISE AND FALL. SITTER AT BEDSIDE, BA STILL 0.169
[2018-06-12] MEDS ORDERED: LORazepam 1MG TABLET ONE (21:46)
--- NOTE | 2018-06-12 21:50 | NUR ---
PT STATES HE FEELS LIKE HE NEEDS A DRINK AND THAT HE IS GOING INTO ALCOHOL WITHDRAWL, VS TAKEN, NOTIFIED. PT MEDICATED WITH ATIVAN PER MAR
[2018-06-12] MEDS ORDERED: PLEASE ENTER HEIGHT AND WEIGHT MC SCH (22:00)
[2018-06-12] MEDS ORDERED: LORazepam 1MG TABLET PO ONE (22:00)
--- NOTE | 2018-06-12 22:50 | NUR ---
REPORT FROM CARL POLANCO. PT RESTING WITH NO NEEDS AT THIS TIME. SITTER IN VIEW OF PT.
--- NOTE | 2018-06-12 23:37 | NUR ---
PT REBREATHALYZED. STILL ABOVE 0.08. PT GIVEN A SNACK. SITTER IN VIEW OF PT.
--- NOTE | 2018-06-13 00:30 | NUR ---
PT SLEEPING WITH NO NEEDS AT THIS TIME. SITTER IN VIEW OF PT.
--- NOTE | 2018-06-13 02:24 | NUR ---
PT REBREATHALYZED 0.9. MD AWARE. WILL REASSESS IN APPROX 1 HOUR.
[2018-06-13 03:10] VITALS: BP 151/95
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
--- NOTE | 2018-06-13 03:36 | NUR ---
Patient given discharge instructions and they have confirmed that they understand the instructions. Patient ambulatory with steady gait.
== END 2018-06-13 03:39 | disposition home or self-care (01) ==
LOC: ED 16:44
DX: R45.851 Suicidal ideations (principal); F10.220 Alcohol dependence with intoxication, uncomplicated; I11.0 Hypertensive heart disease with heart failure; E11.9 Type 2 diabetes mellitus without complications; I25.2 Old myocardial infarction; I25.10 Atherosclerotic heart disease of native coronary artery without angina pectoris; I50.9 Heart failure, unspecified; J45.909 Unspecified asthma, uncomplicated; F32.9 Major depressive disorder, single episode, unspecified
CPT/HCPCS: 36415; 80048; 80307; 80329; 82040; 85025; 99284; G0480

== ENCOUNTER 2018-06-14 23:41 | Emergency (ER) | payer MEDICARE ==
[~2018-06-14] VITALS: Ht 182.9 cm; Wt 90.0 kg
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
--- NOTE | 2018-06-15 00:18 | NUR ---
LUNCH RN: REPORT OF PT FROM SHERRI GONZALES. ASSUMING CARE OF PT AT THIS TIME.
--- NOTE | 2018-06-15 00:31 | NUR ---
LUNCH RN: PT GIVEN 8 ML OF JUICE AND A COUPLE OF PACKAGES OF ISAAC CRACKERS. PT ABLE TO SWALLOW WITHOUT INCIDENT. PT HAS CALL LIGHT WITHIN REACH AT THIS TIME.
--- NOTE | 2018-06-15 01:02 | NUR ---
PT RESTING ON GURNEY DRINKING OJ, PT REQUESTING TO SPEAK TO MALE DOCTOR, ERP UPDATED AND WILL SEE PT
[2018-06-15] MEDS ORDERED: THIAMINE 100MG TABLET PO ONE (01:30)
[2018-06-15] MEDS ORDERED: THIAMINE 100MG TABLET ONE (01:36)
--- NOTE | 2018-06-15 01:40 | NUR ---
pt medicated per mar
[2018-06-15 02:31] VITALS: BP 138/89
== END 2018-06-15 02:39 | disposition home or self-care (01) ==
LOC: ED 23:59
DX: F10.220 Alcohol dependence with intoxication, uncomplicated (principal)
CPT/HCPCS: 82962; 99283

== ENCOUNTER 2018-06-15 10:07 | Emergency (ER) | payer MEDICARE ==
[~2018-06-15] VITALS: Ht 193 cm; Wt 91.0 kg
--- NOTE | 2018-06-15 11:00 | NUR ---
PT IN GOWN, AND IN ROOM. ALL BELONGINGS BAGGED AND IN LOCKER. (3 BELONGINGS BAGS AND ONE LARGE BLACK SUITCASE.) PT IN ROOM WITH SITTER FOR ONE TO ONE SUPERVISION. PT EDUCATED ON THE NEED FOR URINE. WATER PROVIDED
[2018-06-15 11:14] LABS: BASOPHILS # (AUTO) 0.04 x10^3/uL (0-0.1); BASOPHILS % (AUTO) 1 % (0-1); EOSINOPHILS # (AUTO) 0.05 x10^3/uL (0-0.4); EOSINOPHILS % (AUTO) 2 % (1-7); LYMPHOCYTES # (AUTO) 1.45 x10^3/uL (1-3.4); LYMPHOCYTES % (AUTO) 44 % (22-44); MD NO; MEAN CORPUSCULAR HEMOGLOBIN 26.4 pg (27.5-34.5); MEAN CORPUSCULAR HGB CONC 32.9 g/dL (33.2-36.2); MEAN CORPUSCULAR VOLUME 80.3 fL (81-97); MEAN PLATELET VOLUME 9.2 fL (7.4-10.4); MONOCYTES # (AUTO) 0.26 x10^3/uL (0.2-0.8); MONOCYTES % (AUTO) 8 % (2-9); NEUTROPHILS # (AUTO) 1.47 x10^3/uL (1.8-6.8); NEUTROPHILS % (AUTO) 45 % (42-75); PLATELET COUNT 185 x10^3/uL (130-400); RED BLOOD COUNT 5.18 x10^6/uL (4.38-5.82); RED CELL DISTRIBUTION WIDTH 16.8 % (9.4-14.8)
[2018-06-15 11:22] LABS: ALANINE AMINOTRANSFERASE 87 U/L (12-78); ALBUMIN 3.8 g/dL (3.4-5.0); ANION GAP 12 mmol/L (5-15); CALCIUM 7.9 mg/dL (8.5-10.1); CHLORIDE 107 mmol/L (98-107); CREATININE 0.85 mg/dL (0.7-1.3)
[2018-06-15 11:23] LABS: SALICYLATE LEVEL < 1.7 mg/dL (2.8-20.0)
[2018-06-15 11:25] LABS: ALKALINE PHOSPHATASE 63 U/L (45-117); BILIRUBIN,TOTAL 0.7 mg/dL (0.2-1.0)
[2018-06-15 11:27] LABS: ACETAMINOPHEN < 2 mcg/mL (10-30)
--- NOTE | 2018-06-15 12:33 | NUR ---
PT IN ROOM WITH SITTER IN HALLWAY. LUNCH PROVIDED TO PT AT THIS TIME.
--- NOTE | 2018-06-15 13:45 | NUR ---
report received from SHERRI Guillen. pt reminded of need to provide urine sample, urinal within reach, pt verbalizes understanding. pt denies any needs at this time.
--- NOTE | 2018-06-15 14:24 | NUR ---
breathalyzer repeat 0.097, EDMD Landa notified. sitter monitoring from [facility] for safety. room secure.
--- NOTE | 2018-06-15 15:50 | NUR ---
pt instructed to provide urine sample, urinal at bedside. pt provided with orange juice at request, pt tolerated well. sitter monitoring from counts include 234 beds at the [facility] for safety.
--- NOTE | 2018-06-15 16:51 | NUR ---
pt breathalyzed, etoh level 0.047, pt still refusing to attempt to void at this time. pt given another cup orange juice and cp of water. orange juice consumed, pt refusing to drink more at this time. EDMD Cordell notified pt still has not voided. EDMD notified etoh level 0.047. pt a&ox4, resps even and unlabored. sitter monitoring from [facility] for safety, room secure.
--- NOTE | 2018-06-15 17:36 | NUR ---
MD Landa notified urine was collected from pt and is pending in lab. spoke with pt who requests dc, stating he wants to seek outpatient treatment at [place]. JARED Landa agrees to this plan and has given RN instructions to discharge pt. Pt is a&ox4, resps even and unlabored. abrahan.
[2018-06-15 17:45] LABS: AMPHETAMINE SCREEN, URINE Positive (Negative); BARBITURATE SCREEN, URINE Negative (Negative); BENZODIAZEPINE SCREEN, URINE Negative (Negative); CANNABINOID SCREEN, URINE Negative (Negative); COCAINE SCREEN, URINE Negative (Negative); METHADONE SCREEN, URINE Negative (Negative); OPIATE SCREEN, URINE Negative (Negative)
--- NOTE | 2018-06-15 18:14 | NUR ---
at time of dc, pt states he still has suicidal ideation because he is hearing voices that are telling him to hurt himself, MD Landa notified. pt also notes he is SOB and requests inhaler. JARED Gonzalez notified. JRAED Landa notified of BP 163/126. instructed RN to discharge pt. no other orders received. pt given dc instructions, pt educated regarding POC of outpatient treatment at [facility], [facility], or [facility]. pt given cab voucher. pt agreeable to this plan. pt is a&ox4, resps even and unlabored, gait steady.
[2018-06-15 18:19] VITALS: BP 163/126
--- NOTE | 2018-06-15 18:24 | NUR ---
PT AMBULATED OUT OF DEPARTMENT WITH ALL BELONGINGS, GAIT STEADY. KAMINI AT WI.
== END 2018-06-15 18:25 | disposition home or self-care (01) ==
LOC: ED 10:46
DX: F32.9 Major depressive disorder, single episode, unspecified (principal); I11.0 Hypertensive heart disease with heart failure; I50.9 Heart failure, unspecified; J45.909 Unspecified asthma, uncomplicated; I25.2 Old myocardial infarction; I25.10 Atherosclerotic heart disease of native coronary artery without angina pectoris; F17.200 Nicotine dependence, unspecified, uncomplicated; Z72.89 Other problems related to lifestyle
CPT/HCPCS: 36415; 80053; 80307; 80329; 82140; 85025; 99284; G0480

== ENCOUNTER 2018-07-18 09:57 | Emergency (ER) | payer MEDICARE, MEDICAID ==
[~2018-07-18] VITALS: Ht 195.6 cm; Wt 92.0 kg
[~2018-07-18 09:57] MED LIST changes: +DILT120C11 PO; -NITR0.4T SL; +NITR0.4T41 SL
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
[2018-07-18 11:10] LABS: BASOPHILS # (AUTO) 0.03 x10^3/uL (0-0.1); BASOPHILS % (AUTO) 1 % (0-1); EOSINOPHILS # (AUTO) 0.01 x10^3/uL (0-0.4); EOSINOPHILS % (AUTO) 0 % (1-7); LYMPHOCYTES # (AUTO) 1.55 x10^3/uL (1-3.4); LYMPHOCYTES % (AUTO) 32 % (22-44); MD NO; MEAN CORPUSCULAR HEMOGLOBIN 26.2 pg (27.5-34.5); MEAN CORPUSCULAR HGB CONC 32.2 g/dL (33.2-36.2); MEAN CORPUSCULAR VOLUME 81.3 fL (81-97); MEAN PLATELET VOLUME 8.8 fL (7.4-10.4); MONOCYTES # (AUTO) 0.43 x10^3/uL (0.2-0.8); MONOCYTES % (AUTO) 9 % (2-9); NEUTROPHILS # (AUTO) 2.89 x10^3/uL (1.8-6.8); NEUTROPHILS % (AUTO) 59 % (42-75); PLATELET COUNT 243 x10^3/uL (130-400); RED BLOOD COUNT 4.85 x10^6/uL (4.38-5.82); RED CELL DISTRIBUTION WIDTH 16.4 % (9.4-14.8)
[2018-07-18 11:27] LABS: ALANINE AMINOTRANSFERASE 34 U/L (12-78); ALBUMIN 3.8 g/dL (3.4-5.0); ANION GAP 10 mmol/L (5-15); CALCIUM 8.4 mg/dL (8.5-10.1); CHLORIDE 102 mmol/L (98-107)
[2018-07-18 11:38] LABS: ALKALINE PHOSPHATASE 55 U/L (45-117); BILIRUBIN,TOTAL 0.4 mg/dL (0.2-1.0); CREATININE 1.31 mg/dL (0.7-1.3); TOTAL PROTEIN 8.4 g/dL (6.4-8.2)
[2018-07-18 11:44] LABS: SALICYLATE LEVEL < 1.7 mg/dL (2.8-20.0)
--- NOTE | 2018-07-18 12:35 | NUR ---
PATIENT FOUND SITTING AT THE END OF THE BED, SLURRING WORDS, URINATED IN PANTS ON BED. LINENS CHANGED, VS UPDATED IN CHART. PATIENT NOW RESTING IN GURNEY, MUMBLING WORDS. KAMINI. CHEMICAL TREATMENT PLANT TECHNICIAN ON PATIENT.
[2018-07-18] MEDS ORDERED: PERMETHRIN CRM 5%, 60GM TP SCH (13:00)
--- NOTE | 2018-07-18 13:19 | NUR ---
PATIENT SLEEPING IN [facility], VISIBLE CHEST RISE AND FALL. NADN. VS UPDATED IN CHART.
--- NOTE | 2018-07-18 14:05 | NUR ---
PATIENT FOUND STUMBLING, TRYING TO GET TO BATHROOM WITH UNSTEADY GAIT. PATIENT SLURRING WORDS, PATIENT ASSISTED TO BATHROOM, URINE OVER FLOOR. UNABLETO COLLECT URINE FOR DOA. VS UPDATED IN CHART. NADN. RESP EVEN/UNLABORED. MTF.
--- NOTE | 2018-07-18 14:54 | NUR ---
Pt sleeping at this time. NAD.
--- NOTE | 2018-07-18 15:29 | NUR ---
PATIENT FOUND SITTING AT EDGE OF BED. PATIENT ASSISTED BACK TO BED, BREATHALYZER- 0.127. PATIENT STATING HE WANTS TO KILL HIMSELF AT THIS TIME, AWAITING PATIENT TO BE SOBER FOR REASSESSMENT. NADN. PATIENT SITTING IN GURNEY, RESP EVEN/UNLABORED, HVAC SALES ENGINEER ON PATIENT, NO ADDITIONAL NEEDS. WATER PROVIDED TO PATIENT.
--- NOTE | 2018-07-18 16:28 | NUR ---
Patient admits to SI in past, patient has no thoughts of harming self at this time. MD aware. patient to be dc'd.
--- NOTE | 2018-07-18 16:32 | NUR ---
Patient assisted to phone to call sister per request, patient amb with steady gait.
--- NOTE | 2018-07-18 16:54 | NUR ---
Unable to get a hold of patient's sister for ride. Patient/Caregiver given discharge instructions and they have confirmed that they understand the instructions. Patient ambulatory with steady gait with luggage, patient provided bus pass.
[2018-07-18 16:58] VITALS: BP 116/86
== END 2018-07-18 17:00 | disposition home or self-care (01) ==
LOC: ED 16:54
DX: F10.120 Alcohol abuse with intoxication, uncomplicated (principal); Z72.9 Problem related to lifestyle, unspecified; J45.909 Unspecified asthma, uncomplicated; I25.10 Atherosclerotic heart disease of native coronary artery without angina pectoris; I11.0 Hypertensive heart disease with heart failure; I50.9 Heart failure, unspecified; I25.2 Old myocardial infarction; E11.9 Type 2 diabetes mellitus without complications
CPT/HCPCS: 36415; 71045; 80053; 80307; 82140; 85025; 99284

== ENCOUNTER 2018-09-12 13:13 | Emergency (ER) | payer MEDICARE, MEDICAID ==
[~2018-09-12] VITALS: Ht 188 cm; Wt 100.0 kg
[~2018-09-12 13:13] MED LIST changes: -ALBU6.7H INH; +ALBU6.7H8 INH; -GUAI200T3 PO; +GUAI200T37 PO; +MELA5TAB14 PO; -MELA5TAB19 PO; -OMEP10CA4 PO; +OMEP10CA5 PO
--- NOTE | 2018-09-12 13:30 | NUR ---
THIS IS A 48 YO MALE BIB [facility] AFTER A SECURITY GAURD AT [facility] FOUND PT INTOXICATED. PT DROWSY AND HAS SLURRED SPEECH, ETOH ODOR. PT ADMITS TO DRINKING "2/5THS" OF LIQUOR AND "A BEER". DIFFICULTY TO ASSESS ORIENTATION D/T INTOXICATION. PERRLA. PT YUN W/O DIFFICULTY. FS 108. PT ON CONT BP AND O2 MONITORS. CALL LIGHT WITHIN REACH. WILL CONT TO MONITOR PT.
--- NOTE | 2018-09-12 14:31 | NUR ---
Note gardenia in EDM - 09/12/18 at 1453 by LOREN THIS IS A 48 YO MALE BIB [facility] AFTER A SECURITY GAURD AT [facility] FOUND PT INTOXICATED. PT DROWSY AND HAS SLURRED SPEECH, ETOH ODOR. PT ADMITS TO DRINKING "2/5THS" OF LIQUOR AND "A BEER". DIFFICULTY TO ASSESS ORIENTATION D/T INTOXICATION. PERRLA. PT YUN W/O DIFFICULTY. FS 108. PT ON CONT BP AND O2 MONITORS. CALL LIGHT WITHIN REACH. WILL CONT TO MONITOR PT.
--- NOTE | 2018-09-12 14:32 | NUR ---
PT DOZING ON GURLUIS. NAD NOTED. RESP EVEN AND UNALBORED. PT AWAKENS TO NAME BEING CALLED. SKIN WARM AND DRY. PT ON CONT BP AND O2 MONITORS. CALL LIGHT WITHIN REACH. WILL CONT TO MONITOR PT.
--- NOTE | 2018-09-12 15:30 | NUR ---
PT CURRENTLY SLEEPING ON Netsp[employer] NetworksSILVERIO. NAD NOTED. SKIN WARM AND DRY. RESP EVEN AND UNLABORED. PT AWAKENS TO NAME BEING CALLED. PT ON CONT BP AND O2 MONITORS. CALL LIGHT WITHIN REACH. WILL CONT TO MONITOR PT.
--- NOTE | 2018-09-12 16:35 | NUR ---
PT CURRENTLY RESTING ON [employer]URAdorStyle. NAD NOTED. SKIN WARM AND DRY. RESP EVEN AND UNALBORED. PT SEEN STANDING IN ROOM TO THROW SOMETHING IN TRASH AND THEN LAID BACK IN GURNEY. CALL LIGHT WITHIN REACH. WILL CONT TO MONITOR PT.
--- NOTE | 2018-09-12 17:45 | NUR ---
PT CURRENTLY DOZING ON GURNEY. NAD NOTED. SKIN WARM AND DRY. PT CONT TO HAVE SLURRED SPEECH. ETOH ODOR. CALL LIGHT WITHIN REACH. WILL CONT TO MONITOR PT.
--- NOTE | 2018-09-12 17:52 | NUR ---
PT STEADY UPON AMBULATION TO RESTROOM.
[2018-09-12] MEDS ORDERED: ONDANSETRON ODT 8 MG ONE (18:07)
[2018-09-12 18:17] VITALS: BP 127/89
== END 2018-09-12 18:25 | disposition home or self-care (01) ==
LOC: ED 13:15
DX: F10.120 Alcohol abuse with intoxication, uncomplicated (principal); F17.200 Nicotine dependence, unspecified, uncomplicated; I50.9 Heart failure, unspecified; I11.0 Hypertensive heart disease with heart failure; I25.2 Old myocardial infarction; E11.649 Type 2 diabetes mellitus with hypoglycemia without coma; J45.909 Unspecified asthma, uncomplicated
CPT/HCPCS: 99283

== ENCOUNTER 2018-09-13 09:36 | Emergency (ER) | payer MEDICARE, MEDICAID ==
[~2018-09-13] VITALS: Ht 185.4 cm; Wt 85.0 kg
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
--- NOTE | 2018-09-13 10:32 | NUR ---
PT PLACED ON 2L NC FOR LOW SPO2, PT RESTING IN GURNEY WITH SITTER AT BEDSIDE.
--- NOTE | 2018-09-13 10:46 | NUR ---
PTS BELONGINGS SEARCHED, NO GUN IN PT POSSESSION. ONE KNIFE GIVEN TO SECURITY.
--- NOTE | 2018-09-13 10:58 | NUR ---
RN REQUESTED FOR PT TO BE REMOVED FROM RESTRAINTS, NOTIFIED. WILL TRY TO AMBULATE
[2018-09-13 11:05] VITALS: BP 113/72
--- NOTE | 2018-09-13 11:38 | NUR ---
PT GIVEN FOOD AND CRACKERS, PT DENIES SI/HI AT THIS TIME, WHEN ASKED IF HE STILL HAS FEELINGS OF SI/HI PT STATES "NO, I WOULD NEVER DO THAT, I'M SORRY FOR EVERYTHING, I'M SORRY FOR EVERYTHING I SAID". PT AMBULATED TO BATHROOM WITH STEADY GAIT
== END 2018-09-13 11:54 | disposition home or self-care (01) ==
LOC: ED 09:47
DX: F15.14 Other stimulant abuse with stimulant-induced mood disorder (principal); F10.129 Alcohol abuse with intoxication, unspecified; Y90.0 Blood alcohol level of less than 20 mg/100 ml; I11.0 Hypertensive heart disease with heart failure; I25.10 Atherosclerotic heart disease of native coronary artery without angina pectoris; I50.9 Heart failure, unspecified; E11.9 Type 2 diabetes mellitus without complications; I25.2 Old myocardial infarction; F32.9 Major depressive disorder, single episode, unspecified; Z72.9 Problem related to lifestyle, unspecified
CPT/HCPCS: 99283

== ENCOUNTER 2018-12-14 21:56 | Emergency (ER) | payer MEDICARE ==
[~2018-12-14] VITALS: Ht 193 cm; Wt 100.0 kg
[~2018-12-14 21:56] MED LIST changes: +OXYB5TAB10 PO; -OXYB5TAB7 PO
--- NOTE | 2018-12-14 22:42 | NUR ---
PT RESTING ON GURNEY. BREATHING TREATMENT ORDERED. PT PROVIDED BEDSIDE URINAL.
--- NOTE | 2018-12-14 22:42 | NUR ---
KENY RODRIGUEZ FROM [facility]. PT WAS CHECKED IN THIS MORNING FOR ALCOHOL WITHDRAWL. AT [facility] HE VOMITTED A 'LARGE AMOUNT' OF DARK RED BLOOD X 1 EPISODE. PT 83% RA IN ED. AT 1800 THIS EVENING PT BRETHALIZER 0.[address] [facility]. PROPANOLOL 20MG @1945 AND ZOFRAN 4MG@1999
[2018-12-14] MEDS ORDERED: ALBUTEROL SULFATE 2.5 MG/3 ML ONE (22:46)
[2018-12-14 22:56] LABS: BASOPHILS # (AUTO) 0.03 x10^3/uL (0-0.1); BASOPHILS % (AUTO) 1 % (0-1); EOSINOPHILS # (AUTO) 0.02 x10^3/uL (0-0.4); EOSINOPHILS % (AUTO) 0 % (1-7); LYMPHOCYTES # (AUTO) 1.69 x10^3/uL (1-3.4); LYMPHOCYTES % (AUTO) 25 % (22-44); MD NO; MEAN CORPUSCULAR HEMOGLOBIN 26.1 pg (27.5-34.5); MEAN CORPUSCULAR HGB CONC 32.1 g/dL (33.2-36.2); MEAN CORPUSCULAR VOLUME 81.3 fL (81-97); MEAN PLATELET VOLUME 8.7 fL (7.4-10.4); MONOCYTES # (AUTO) 0.69 x10^3/uL (0.2-0.8); MONOCYTES % (AUTO) 10 % (2-9); NEUTROPHILS # (AUTO) 4.24 x10^3/uL (1.8-6.8); NEUTROPHILS % (AUTO) 64 % (42-75); PLATELET COUNT 217 x10^3/uL (130-400); RED BLOOD COUNT 5.35 x10^6/uL (4.38-5.82); RED CELL DISTRIBUTION WIDTH 18.3 % (9.4-14.8)
[2018-12-14] MEDS ORDERED: ALBUTEROL/IPRATROPIUM 2.5MG/0.5MG, 3 ML NPPB ONE (23:00)
[2018-12-14] MEDS ORDERED: ALBUTEROL SULFATE 2.5 MG/3 ML NPPB ONE (23:00)
[2018-12-14 23:07] LABS: ANION GAP 9 mmol/L (5-15); CHLORIDE 105 mmol/L (98-107)
[2018-12-14 23:12] LABS: CALCIUM 7.8 mg/dL (8.5-10.1); CREATININE 1.04 mg/dL (0.7-1.3)
--- NOTE | 2018-12-14 23:42 | NUR ---
PT FOR RECHECK
--- NOTE | 2018-12-14 23:57 | NUR ---
pt provided snacks
[2018-12-15 00:10] VITALS: BP 152/93
--- NOTE | 2018-12-15 01:48 | NUR ---
CALLED AND SPOKE WITH EMETERIO FROM [facility] AND SHE SAID SHE SAVED A BED FOR HIM. PT HAS BEEN PROVIDED WITH A CLEAN SET OF CLOTHING. PT TO BE DISCHARGED WITH A TAXI CAB VOUCHER BACK TO [facility] PENDING 'ROAD TEST' AND EMETERIO SAID SHE WILL BE THERE TO RECIEVE HIM.
--- NOTE | 2018-12-15 02:08 | NUR ---
PT AMBULATES WITH A STEADY GAIT. PT TO BE DISCHARGE VIA TAXI TO [facility]
== END 2018-12-15 02:12 | disposition home or self-care (01) ==
LOC: ED 22:23
DX: F10.220 Alcohol dependence with intoxication, uncomplicated (principal); Z72.9 Problem related to lifestyle, unspecified; I25.2 Old myocardial infarction; E11.9 Type 2 diabetes mellitus without complications; J45.909 Unspecified asthma, uncomplicated; F32.9 Major depressive disorder, single episode, unspecified; F17.200 Nicotine dependence, unspecified, uncomplicated; I10 Essential (primary) hypertension; S00.91XA Abrasion of unspecified part of head, initial encounter; W18.30XA Fall on same level, unspecified, initial encounter; Y93.9 Activity, unspecified; Y92.9 Unspecified place or not applicable; F10.229 Alcohol dependence with intoxication, unspecified; Y90.1 Blood alcohol level of 20-39 mg/100 ml
CPT/HCPCS: 36415; 70450; 80048; 80307; 85025; 94640; 99284

== ENCOUNTER 2019-02-17 15:45 | Emergency (ER) | payer MEDICARE, MEDICAID ==
[~2019-02-17] VITALS: Ht 193 cm; Wt 90.9 kg
--- NOTE | 2019-02-17 16:02 | NUR ---
Pt arrives via EMS from [facility]. Pt denying chest pain at this time, but reporting his last drink was at 1130 and he is starting to feel nauseated and shaky. Pt admits to meth use last night. Pt is alert and oriented. Pt in gown and on full monitors. Call light within reach.
[2019-02-17] MEDS ORDERED: MAALOX/HYOSCYAMINE/LIDOCAINE 45 ML BTL PO ONE (16:30)
[2019-02-17] MEDS ORDERED: MAALOX/HYOSCYAMINE/LIDOCAINE 45 ML BTL ONE (16:37)
[2019-02-17 16:41] VITALS: BP 157/118
[2019-02-17 16:47] LABS: BASOPHILS # (AUTO) 0.07 x10^3/uL (0-0.1); BASOPHILS % (AUTO) 1 % (0-1); EOSINOPHILS % (AUTO) 2 % (1-7); LYMPHOCYTES # (AUTO) 2.32 x10^3/uL (1-3.4); LYMPHOCYTES % (AUTO) 36 % (22-44); MD NO; MEAN CORPUSCULAR HEMOGLOBIN 25.6 pg (27.5-34.5); MEAN CORPUSCULAR VOLUME 80.1 fL (81-97); MEAN PLATELET VOLUME 8.5 fL (7.4-10.4); MONOCYTES # (AUTO) 0.54 x10^3/uL (0.2-0.8); MONOCYTES % (AUTO) 8 % (2-9); NEUTROPHILS # (AUTO) 3.44 x10^3/uL (1.8-6.8); NEUTROPHILS % (AUTO) 53 % (42-75); PLATELET COUNT 192 x10^3/uL (130-400); RED BLOOD COUNT 5.18 x10^6/uL (4.38-5.82)
--- NOTE | 2019-02-17 16:50 | NUR ---
PT MEDICATED PER EMAR.
[2019-02-17 16:57] LABS: ALANINE AMINOTRANSFERASE 44 U/L (12-78); ALBUMIN 3.4 g/dL (3.4-5.0); ANION GAP 10 mmol/L (5-15); CALCIUM 8.4 mg/dL (8.5-10.1); CHLORIDE 104 mmol/L (98-107); CREATININE 0.87 mg/dL (0.7-1.3)
[2019-02-17 17:01] LABS: ALKALINE PHOSPHATASE 69 U/L (45-117); BILIRUBIN,TOTAL 0.6 mg/dL (0.2-1.0); TOTAL PROTEIN 7.8 g/dL (6.4-8.2); TROPONIN I 0.035 ng/mL (0.000-0.045)
--- NOTE | 2019-02-17 17:50 | NUR ---
Pt alert and resting on gurharman. NAD.
--- NOTE | 2019-02-17 18:16 | NUR ---
Pt dressed and sitting on gurney. Pt aware of wait for transport back to [facility].
== END 2019-02-17 19:33 ==
LOC: ED 18:26
DX: F10.220 Alcohol dependence with intoxication, uncomplicated (principal); R07.2 Precordial pain; I25.10 Atherosclerotic heart disease of native coronary artery without angina pectoris; I11.0 Hypertensive heart disease with heart failure; I50.9 Heart failure, unspecified; I25.2 Old myocardial infarction; J45.909 Unspecified asthma, uncomplicated; E11.649 Type 2 diabetes mellitus with hypoglycemia without coma; E87.6 Hypokalemia; Y90.9 Presence of alcohol in blood, level not specified
CPT/HCPCS: 36415; 71045; 80053; 84484; 85025; 93005; 99284

== ENCOUNTER 2019-03-14 07:00 | Emergency (ER) | payer MEDICARE, MEDICAID ==
[~2019-03-14] VITALS: Ht 188 cm; Wt 90.0 kg
--- NOTE | 2019-03-14 07:41 | NUR ---
ARRIVED TO [facility] UNABLE TO STAND, INEBRIATED. REQUIRED ASSISTANCE INTO GURNEY. PT CALLING OUT LOUDLY, NOT MAKING SENSE INITIALLY. NOW PT SLEEPING. WILL CONTINUE TO MONITOR.
[2019-03-14 07:46] VITALS: BP 137/89
--- NOTE | 2019-03-14 08:35 | NUR ---
PT OUT OF BED WALKING DOWN THE ALBERTS, UNSTEADY. ASSISTED TO THE BATHROOM AND THEN BACK TO ROOM. PT STATES HE DOES NOT REMEMBER HOW HE GOT HERE. NOTED TO HAVE SLURRED SPEECH. NOT AGITATED AND FOLLOWING COMMANDS.
--- NOTE | 2019-03-14 09:04 | NUR ---
PT UOB TO PHONE AT DESK ACROSS FROM ROOM. ATTEMPTING TO OBTAIN BALANCE ON CARD. PT ASKED FOR ASSISTANCE WHICH WAS PROVIDED. PT STATES HE DOES NOT HAVE MONEY FOR RIDE HOME. PT PROVIDED TAXI VOUCHER SO HE MAY GET HOME SAFELY.
== END 2019-03-14 09:07 | disposition home or self-care (01) ==
LOC: ED 08:46
DX: F10.220 Alcohol dependence with intoxication, uncomplicated (principal); K21.9 Gastro-esophageal reflux disease without esophagitis; I25.2 Old myocardial infarction; I50.9 Heart failure, unspecified; I25.10 Atherosclerotic heart disease of native coronary artery without angina pectoris; E11.9 Type 2 diabetes mellitus without complications; J45.909 Unspecified asthma, uncomplicated; Y90.9 Presence of alcohol in blood, level not specified
CPT/HCPCS: 99281

== ENCOUNTER 2019-04-20 14:37 | Inpatient (IN) | payer MEDICARE, MEDICAID ==
[~2019-04-20] VITALS: Ht 193 cm; Wt 94.8 kg
[~2019-04-20 14:37] MED LIST changes: +CLON0.1T2 PO; +METO25TA4 PO; +SIMV20TA19 PO; -SIMV20TA3 PO; -SUCR1ORA11 PO; +SUCR1ORA14 PO; -TRAZ-137 PO; +TRAZ-175 PO
[2019-04-20] MEDS ORDERED: ONDANSETRON ODT 4 MG PO PRN (15:30)
[2019-04-20] MEDS ORDERED: POLYETHYLENE GLYCOL 17 GM PACKET PO PRN (15:30)
[2019-04-20] MEDS ORDERED: DOCUSATE 100 MG CAPSULE PO PRN (15:30)
[2019-04-20] MEDS ORDERED: PLEASE ENTER HEIGHT AND WEIGHT MC SCH (15:30)
[2019-04-20] MEDS ORDERED: BISACODYL 10 MG SUPP PR PRN (15:30)
[2019-04-20 15:51] VITALS: BP 115/78
[2019-04-20 17:01] LABS: CHOL/HDL RATIO 3.5; FREE T4 (FREE THYROXINE) 1.15 ng/dL (0.76-1.46); LDL/HDL RATIO 2.1 (0.5-3.0)
[2019-04-20 19:00] VITALS: BP 113/77
[2019-04-20] MEDS: METOPROLOL TARTRATE 25 MG TAB PO SCH (19:40)
[2019-04-20] MEDS: SODIUM CHLORIDE NASAL SPRAY 45ML BOTTLE NAS SCH (20:25)
[2019-04-21 05:13] LABS: CHLORIDE 104 mmol/L (98-107)
[2019-04-21 05:17] LABS: ANION GAP 7 mmol/L (5-15); CALCIUM 8.8 mg/dL (8.5-10.1); CREATININE 0.84 mg/dL (0.7-1.3)
[2019-04-21 05:21] LABS: BASOPHILS # (AUTO) 0.04 x10^3/uL (0-0.1); BASOPHILS % (AUTO) 1 % (0-1); EOSINOPHILS # (AUTO) 0.19 x10^3/uL (0-0.4); EOSINOPHILS % (AUTO) 3 % (1-7); LYMPHOCYTES % (AUTO) 36 % (22-44); MD NO; MEAN CORPUSCULAR HEMOGLOBIN 26.5 pg (27.5-34.5); MEAN CORPUSCULAR HGB CONC 32.3 g/dL (33.2-36.2); MEAN CORPUSCULAR VOLUME 82.3 fL (81-97); MEAN PLATELET VOLUME 10.9 fL (7.4-10.4); MONOCYTES # (AUTO) 1.12 x10^3/uL (0.2-0.8); MONOCYTES % (AUTO) 19 % (2-9); NEUTROPHILS # (AUTO) 2.51 x10^3/uL (1.8-6.8); NEUTROPHILS % (AUTO) 41 % (42-75); PLATELET COUNT 165 x10^3/uL (130-400); RED BLOOD COUNT 4.85 x10^6/uL (4.38-5.82); RED CELL DISTRIBUTION WIDTH 17.3 % (9.4-14.8)
[2019-04-21 06:00] VITALS: BP 143/94
[2019-04-21] MEDS: METOPROLOL TARTRATE 25 MG TAB PO SCH ×2 (06:08→18:08)
[2019-04-21] MEDS: ASPIRIN 81 MG TABLET EC PO SCH (06:08)
[2019-04-21 07:29] VITALS: BP 145/104
[2019-04-21] MEDS: SODIUM CHLORIDE NASAL SPRAY 45ML BOTTLE NAS SCH ×2 (08:29→20:09)
[2019-04-21] MEDS: THIAMINE 100MG TABLET PO SCH (08:29)
[2019-04-21] MEDS: MULTIVITAMINS/MINERALS TABLET PO SCH (08:29)
[2019-04-21] MEDS: FOLIC ACID 1 MG TABLET PO SCH (08:29)
[2019-04-21] MEDS: OLANZAPINE 10 MG TABLET PO SCH (08:30)
[2019-04-21] MEDS: ACETAMINOPHEN 325 MG TABLET PO PRN (08:30)
[2019-04-21] MEDS ORDERED: THIAMINE 50MG TABLET PO SCH (09:00)
[2019-04-21] MEDS ORDERED: TRAZODONE 50MG TABLET PO PRN (16:00)
[2019-04-21 18:07] VITALS: BP 107/67
[2019-04-21 20:20] VITALS: BP 122/85
[2019-04-21 20:46] LABS: MICROSCOPIC NOT IND
[2019-04-21 21:00] LABS: CULTURE INDICATED? NO
[2019-04-22 06:00] VITALS: BP 134/92
[2019-04-22] MEDS: METOPROLOL TARTRATE 25 MG TAB PO SCH ×2 (06:04→18:08)
[2019-04-22] MEDS: ASPIRIN 81 MG TABLET EC PO SCH (06:04)
[2019-04-22 07:07] VITALS: BP 158/85
[2019-04-22] MEDS: MULTIVITAMINS/MINERALS TABLET PO SCH (09:38)
[2019-04-22] MEDS: SODIUM CHLORIDE NASAL SPRAY 45ML BOTTLE NAS SCH ×2 (09:38→20:19)
[2019-04-22] MEDS: FOLIC ACID 1 MG TABLET PO SCH (09:38)
[2019-04-22] MEDS: OLANZAPINE 10 MG TABLET PO SCH (09:38)
[2019-04-22] MEDS: THIAMINE 100MG TABLET PO SCH (09:38)
[2019-04-22 18:14] VITALS: BP 119/72
[2019-04-22 19:56] VITALS: BP 115/80
[2019-04-22] MEDS: TRAZODONE 50MG TABLET PO SCH (20:19)
[2019-04-23] MEDS: ASPIRIN 81 MG TABLET EC PO SCH (06:16)
[2019-04-23] MEDS: METOPROLOL TARTRATE 25 MG TAB PO SCH ×2 (06:16→18:00)
[2019-04-23 07:05] VITALS: BP 130/90
[2019-04-23] MEDS: FOLIC ACID 1 MG TABLET PO SCH (08:18)
[2019-04-23] MEDS: THIAMINE 100MG TABLET PO SCH (08:18)
[2019-04-23] MEDS: OLANZAPINE 10 MG TABLET PO SCH (08:18)
[2019-04-23] MEDS: MULTIVITAMINS/MINERALS TABLET PO SCH (08:18)
[2019-04-23] MEDS: SODIUM CHLORIDE NASAL SPRAY 45ML BOTTLE NAS SCH ×2 (08:19→20:21)
[2019-04-23 17:59] VITALS: BP 128/88
[2019-04-23 19:44] VITALS: BP 146/88
[2019-04-23] MEDS: ACETAMINOPHEN 325 MG TABLET PO PRN (20:06)
[2019-04-23] MEDS: TRAZODONE 50MG TABLET PO SCH (20:06)
[2019-04-24 05:55] VITALS: BP 131/91
[2019-04-24] MEDS: ASPIRIN 81 MG TABLET EC PO SCH (06:00)
[2019-04-24] MEDS: METOPROLOL TARTRATE 25 MG TAB PO SCH ×2 (06:00→18:17)
[2019-04-24 07:29] VITALS: BP 129/85
[2019-04-24] MEDS: OLANZAPINE 10 MG TABLET PO SCH (08:44)
[2019-04-24] MEDS: MULTIVITAMINS/MINERALS TABLET PO SCH (08:44)
[2019-04-24] MEDS: FOLIC ACID 1 MG TABLET PO SCH (08:44)
[2019-04-24] MEDS: THIAMINE 100MG TABLET PO SCH (08:44)
[2019-04-24] MEDS: SODIUM CHLORIDE NASAL SPRAY 45ML BOTTLE NAS SCH ×2 (08:47→19:57)
[2019-04-24 18:11] VITALS: BP 139/87
[2019-04-24 19:32] VITALS: BP 111/74
[2019-04-24] MEDS: TRAZODONE 50MG TABLET PO SCH (19:57)
[2019-04-25 05:50] VITALS: BP 149/100
[2019-04-25] MEDS: ASPIRIN 81 MG TABLET EC PO SCH (05:54)
[2019-04-25] MEDS: METOPROLOL TARTRATE 25 MG TAB PO SCH ×2 (05:54→18:18)
[2019-04-25 07:59] VITALS: BP 137/99
[2019-04-25] MEDS: MULTIVITAMINS/MINERALS TABLET PO SCH (08:45)
[2019-04-25] MEDS: FOLIC ACID 1 MG TABLET PO SCH (08:45)
[2019-04-25] MEDS: THIAMINE 100MG TABLET PO SCH (08:45)
[2019-04-25] MEDS: OLANZAPINE 10 MG TABLET PO SCH (08:47)
[2019-04-25] MEDS: SODIUM CHLORIDE NASAL SPRAY 45ML BOTTLE NAS SCH ×2 (08:49→20:13)
[2019-04-25 18:15] VITALS: BP 150/100
[2019-04-25 19:03] VITALS: BP 145/87
[2019-04-25] MEDS: TRAZODONE 50MG TABLET PO SCH (20:09)
[2019-04-25] MEDS: ACETAMINOPHEN 325 MG TABLET PO PRN (20:09)
[2019-04-26 05:33] VITALS: BP 144/100
[2019-04-26] MEDS: ASPIRIN 81 MG TABLET EC PO SCH (05:35)
[2019-04-26] MEDS: METOPROLOL TARTRATE 25 MG TAB PO SCH ×2 (05:36→18:29)
[2019-04-26 07:39] VITALS: BP 150/98
[2019-04-26] MEDS: SODIUM CHLORIDE NASAL SPRAY 45ML BOTTLE NAS SCH ×2 (09:00→20:25)
[2019-04-26] MEDS: FOLIC ACID 1 MG TABLET PO SCH (09:01)
[2019-04-26] MEDS: THIAMINE 100MG TABLET PO SCH (09:01)
[2019-04-26] MEDS: OLANZAPINE 10 MG TABLET PO SCH (09:01)
[2019-04-26] MEDS: MULTIVITAMINS/MINERALS TABLET PO SCH (09:01)
[2019-04-26] MEDS: ACETAMINOPHEN 325 MG TABLET PO PRN ×2 (09:09→20:23)
[2019-04-26 18:22] VITALS: BP 139/83
[2019-04-26] MEDS: TRAZODONE 50MG TABLET PO SCH (20:23)
[2019-04-27 05:37] VITALS: BP 153/102
[2019-04-27] MEDS: ASPIRIN 81 MG TABLET EC PO SCH (05:40)
[2019-04-27] MEDS: METOPROLOL TARTRATE 25 MG TAB PO SCH ×2 (05:41→17:20)
[2019-04-27 07:31] VITALS: BP 118/79
[2019-04-27] MEDS: FOLIC ACID 1 MG TABLET PO SCH (09:09)
[2019-04-27] MEDS: THIAMINE 100MG TABLET PO SCH (09:09)
[2019-04-27] MEDS: MULTIVITAMINS/MINERALS TABLET PO SCH (09:09)
[2019-04-27] MEDS: SODIUM CHLORIDE NASAL SPRAY 45ML BOTTLE NAS SCH ×2 (09:09→20:43)
[2019-04-27] MEDS: OLANZAPINE 10 MG TABLET PO SCH (09:11)
[2019-04-27 19:00] VITALS: BP 151/93
[2019-04-27] MEDS: TRAZODONE 50MG TABLET PO SCH (20:42)
[2019-04-28] MEDS: METOPROLOL TARTRATE 25 MG TAB PO SCH ×2 (06:05→18:04)
[2019-04-28] MEDS: ASPIRIN 81 MG TABLET EC PO SCH (06:05)
[2019-04-28 07:27] VITALS: BP 121/89
[2019-04-28] MEDS ORDERED: OLANZAPINE 5 MG TABLET ONE (08:35)
[2019-04-28] MEDS: THIAMINE 100MG TABLET PO SCH (08:36)
[2019-04-28] MEDS: SODIUM CHLORIDE NASAL SPRAY 45ML BOTTLE NAS SCH ×2 (08:36→20:41)
[2019-04-28] MEDS: FOLIC ACID 1 MG TABLET PO SCH (08:37)
[2019-04-28] MEDS: MULTIVITAMINS/MINERALS TABLET PO SCH (08:37)
[2019-04-28] MEDS: OLANZAPINE 10 MG TABLET PO SCH (09:20)
[2019-04-28 18:02] VITALS: BP 138/87
[2019-04-28 19:43] VITALS: BP 152/92
[2019-04-28] MEDS: TRAZODONE 50MG TABLET PO SCH (20:40)
[2019-04-29] MEDS: METOPROLOL TARTRATE 25 MG TAB PO SCH ×2 (05:52→18:15)
[2019-04-29] MEDS: ASPIRIN 81 MG TABLET EC PO SCH (05:52)
[2019-04-29 07:49] VITALS: BP 140/99
[2019-04-29] MEDS: THIAMINE 100MG TABLET PO SCH (08:32)
[2019-04-29] MEDS: OLANZAPINE 10 MG TABLET PO SCH (08:32)
[2019-04-29] MEDS: FOLIC ACID 1 MG TABLET PO SCH (08:33)
[2019-04-29] MEDS: MULTIVITAMINS/MINERALS TABLET PO SCH (08:33)
[2019-04-29] MEDS: SODIUM CHLORIDE NASAL SPRAY 45ML BOTTLE NAS SCH ×2 (08:34→21:00)
[2019-04-29 18:12] VITALS: BP 142/89
[2019-04-29 19:49] VITALS: BP 146/91
[2019-04-29] MEDS: TRAZODONE 50MG TABLET PO SCH (20:06)
[2019-04-30] MEDS: ASPIRIN 81 MG TABLET EC PO SCH (05:44)
[2019-04-30] MEDS: METOPROLOL TARTRATE 25 MG TAB PO SCH ×2 (05:45→17:38)
[2019-04-30 05:49] VITALS: BP 153/108
[2019-04-30 07:10] VITALS: BP 134/82
[2019-04-30] MEDS: FOLIC ACID 1 MG TABLET PO SCH (08:40)
[2019-04-30] MEDS: OLANZAPINE 10 MG TABLET PO SCH (08:40)
[2019-04-30] MEDS: THIAMINE 100MG TABLET PO SCH (08:40)
[2019-04-30] MEDS: MULTIVITAMINS/MINERALS TABLET PO SCH (08:40)
[2019-04-30] MEDS: SODIUM CHLORIDE NASAL SPRAY 45ML BOTTLE NAS SCH ×2 (09:52→21:19)
[2019-04-30 17:35] VITALS: BP 126/85
[2019-04-30 19:39] VITALS: BP 144/94
[2019-04-30] MEDS: TRAZODONE 50MG TABLET PO SCH (20:54)
[2019-05-01] MEDS: ASPIRIN 81 MG TABLET EC PO SCH (05:56)
[2019-05-01] MEDS: METOPROLOL TARTRATE 25 MG TAB PO SCH ×2 (05:56→18:09)
[2019-05-01 07:50] VITALS: BP 151/100
[2019-05-01] MEDS: THIAMINE 100MG TABLET PO SCH (08:20)
[2019-05-01] MEDS: FOLIC ACID 1 MG TABLET PO SCH (08:20)
[2019-05-01] MEDS: MULTIVITAMINS/MINERALS TABLET PO SCH (08:20)
[2019-05-01] MEDS: OLANZAPINE 10 MG TABLET PO SCH (08:21)
[2019-05-01] MEDS: SODIUM CHLORIDE NASAL SPRAY 45ML BOTTLE NAS SCH ×2 (08:22→20:35)
[2019-05-01 18:06] VITALS: BP 143/87
[2019-05-01 19:14] VITALS: BP 143/87
[2019-05-01] MEDS: TRAZODONE 50MG TABLET PO SCH (20:33)
[2019-05-02 05:28] VITALS: BP 142/91
[2019-05-02 05:29] VITALS: BP 142/91
[2019-05-02] MEDS: ASPIRIN 81 MG TABLET EC PO SCH (05:30)
[2019-05-02] MEDS: METOPROLOL TARTRATE 25 MG TAB PO SCH ×2 (05:30→18:26)
[2019-05-02 07:39] VITALS: BP 135/87
[2019-05-02] MEDS: FOLIC ACID 1 MG TABLET PO SCH (08:18)
[2019-05-02] MEDS: OLANZAPINE 10 MG TABLET PO SCH (08:18)
[2019-05-02] MEDS: SODIUM CHLORIDE NASAL SPRAY 45ML BOTTLE NAS SCH ×2 (08:18→20:26)
[2019-05-02] MEDS: THIAMINE 100MG TABLET PO SCH (08:18)
[2019-05-02] MEDS: MULTIVITAMINS/MINERALS TABLET PO SCH (08:18)
[2019-05-02] MEDS: NALTREXONE HCL 50 MG TABLET PO SCH (11:56)
[2019-05-02 19:21] VITALS: BP 147/97
[2019-05-02] MEDS: TRAZODONE 50MG TABLET PO SCH (20:26)
[2019-05-03 06:04] VITALS: BP_SYST 153; BP_SYST 156; BP_DIAS 110; BP_DIAS 114
[2019-05-03] MEDS: ASPIRIN 81 MG TABLET EC PO SCH (06:04)
[2019-05-03] MEDS: METOPROLOL TARTRATE 25 MG TAB PO SCH ×2 (06:04→17:14)
[2019-05-03 07:24] VITALS: BP 154/101
[2019-05-03] MEDS: FOLIC ACID 1 MG TABLET PO SCH (08:22)
[2019-05-03] MEDS: OLANZAPINE 10 MG TABLET PO SCH (08:22)
[2019-05-03] MEDS: NALTREXONE HCL 50 MG TABLET PO SCH (08:23)
[2019-05-03] MEDS: MULTIVITAMINS/MINERALS TABLET PO SCH (08:23)
[2019-05-03] MEDS: THIAMINE 100MG TABLET PO SCH (08:23)
[2019-05-03] MEDS: SODIUM CHLORIDE NASAL SPRAY 45ML BOTTLE NAS SCH ×2 (09:00→20:15)
[2019-05-03 11:50] VITALS: BP 131/86
[2019-05-03 19:29] VITALS: BP 153/99
[2019-05-03] MEDS: TRAZODONE 50MG TABLET PO SCH (20:14)
[2019-05-04 05:47] VITALS: BP 156/101
[2019-05-04] MEDS: METOPROLOL TARTRATE 25 MG TAB PO SCH ×2 (05:48→17:52)
[2019-05-04] MEDS: ASPIRIN 81 MG TABLET EC PO SCH (05:48)
[2019-05-04 07:05] VITALS: BP 153/100
[2019-05-04] MEDS: FOLIC ACID 1 MG TABLET PO SCH (08:21)
[2019-05-04] MEDS: MULTIVITAMINS/MINERALS TABLET PO SCH (08:21)
[2019-05-04] MEDS: THIAMINE 100MG TABLET PO SCH (08:22)
[2019-05-04] MEDS: NALTREXONE HCL 50 MG TABLET PO SCH (08:22)
[2019-05-04] MEDS: OLANZAPINE 10 MG TABLET PO SCH (08:23)
[2019-05-04] MEDS: SODIUM CHLORIDE NASAL SPRAY 45ML BOTTLE NAS SCH ×2 (08:27→21:00)
[2019-05-04 17:00] VITALS: BP 144/93
[2019-05-04 17:53] VITALS: BP 142/101
[2019-05-04 20:00] VITALS: BP 144/93
[2019-05-04] MEDS: TRAZODONE 50MG TABLET PO SCH (20:12)
[2019-05-05] MEDS: ASPIRIN 81 MG TABLET EC PO SCH (05:27)
[2019-05-05] MEDS: METOPROLOL TARTRATE 25 MG TAB PO SCH ×2 (05:27→18:16)
[2019-05-05 07:05] VITALS: BP 152/102
[2019-05-05] MEDS: OLANZAPINE 10 MG TABLET PO SCH (08:23)
[2019-05-05] MEDS: MULTIVITAMINS/MINERALS TABLET PO SCH (08:24)
[2019-05-05] MEDS: FOLIC ACID 1 MG TABLET PO SCH (08:24)
[2019-05-05] MEDS: THIAMINE 100MG TABLET PO SCH (08:24)
[2019-05-05] MEDS: NALTREXONE HCL 50 MG TABLET PO SCH (08:24)
[2019-05-05] MEDS: SODIUM CHLORIDE NASAL SPRAY 45ML BOTTLE NAS SCH (08:26)
[2019-05-05] MEDS ORDERED: TRAZ50TA66 PO (13:27)
[2019-05-05] MEDS ORDERED: OLAN10TA9 PO (13:27)
[2019-05-05] MEDS ORDERED: METO25TA35 PO (13:27)
[2019-05-05] MEDS ORDERED: MULT-484 PO (13:27)
[2019-05-05] MEDS ORDERED: ASPI81TA45 PO (13:27)
[2019-05-05] MEDS ORDERED: FOLI-17 PO (13:27)
[2019-05-05] MEDS ORDERED: NALT50TA PO (13:27)
== END 2019-05-05 18:30 | disposition home or self-care (01) | DRG 885 ==
LOC: 3E 15:17
PROVIDERS: ADMIT Psychiatry & Neurology Psychosomatic Medicine; ATTEND Psychiatry & Neurology Psychosomatic Medicine
DX: F20.0 Paranoid schizophrenia (principal); F33.2 Major depressive disorder, recurrent severe without psychotic features; R45.851 Suicidal ideations; E78.5 Hyperlipidemia, unspecified; F10.20 Alcohol dependence, uncomplicated; F12.90 Cannabis use, unspecified, uncomplicated; F15.10 Other stimulant abuse, uncomplicated; F17.200 Nicotine dependence, unspecified, uncomplicated; G47.00 Insomnia, unspecified; I10 Essential (primary) hypertension; I25.10 Atherosclerotic heart disease of native coronary artery without angina pectoris; K21.9 Gastro-esophageal reflux disease without esophagitis; Z79.82 Long term (current) use of aspirin; Z79.899 Other long term (current) drug therapy; Z80.9 Family history of malignant neoplasm, unspecified; Z88.8 Allergy status to other drugs, medicaments and biological substances
CPT/HCPCS: 36415; 80048; 80061; 81003; 82607; 84439; 84443; 85025

== ENCOUNTER 2019-05-13 18:02 | Emergency (ER) | payer MEDICARE, MEDICAID ==
[~2019-05-13 18:02] MED LIST changes: +ASPI81TA45 PO; +MULT-484 PO; +NALT50TA PO
--- NOTE | 2019-05-13 18:17 | NUR ---
PT ADMITS TO DAILY ETOH INTAKE: UNKNOWN QUANTITY TODAY. SIDE RAILS UP X2, CALL LIGHT W/IN REACH, EMESIS BAG PROVIDED, URINAL PROVIDED.
--- NOTE | 2019-05-13 18:51 | NUR ---
AMBULATORY TO & FROM [facility] W/OUT INCIDENT. PT REFUSED TO USE URINAL, REFUSED TO PROVIDE SPECIMEN. RETURNED TO BED; SIDE RAILS UP X2.
--- NOTE | 2019-05-13 19:08 | NUR ---
SITTING QUIETY ON GURNEY, SIDE RAILS UP X2
--- NOTE | 2019-05-13 20:03 | NUR ---
SITTING QUIETLY ON RCALLAWAY
[2019-05-13 20:44] VITALS: BP 171/112
--- NOTE | 2019-05-13 22:06 | NUR ---
SITTING ON END OF BED; REFUSES TO GET COMPLETELY ON BED STILL SLURRING WORDS.
--- NOTE | 2019-05-13 22:12 | NUR ---
PT ENDORSED TO SHERRI CEBALLOS.
--- NOTE | 2019-05-13 22:26 | NUR ---
PT DECLINING VITALS AT THIS TIME.
--- NOTE | 2019-05-13 23:17 | NUR ---
PT REFUSED TO REPEAT BACK DC TEACHINGS. PT ABLE TO AMBULATE WITH STEADY GAIT, PICK ITEMS UP OFF THE FLOOR, AND DRESS HIMSELF WITH EASE. PT VERBALLY UNCOOPERATIVE BUT DECLINED CURRENT MEDICAL COMPLAINTS. PT WAS OFFERED TAXI VOUCHER WHICH HE DECLINED "I'M GONNA GO GET A BOTTLE". PT AMBULATED OUT OF ED. PT REFUSED TO REPEAT BACK DC TEACHINGS.
== END 2019-05-13 23:20 | disposition home or self-care (01) ==
LOC: MERGE 18:02 → ED 19:36
DX: F10.120 Alcohol abuse with intoxication, uncomplicated (principal); I10 Essential (primary) hypertension; Z72.9 Problem related to lifestyle, unspecified; Y90.9 Presence of alcohol in blood, level not specified
CPT/HCPCS: 36415; 80307; 99283

== ENCOUNTER 2019-05-18 15:48 | Emergency (ER) | payer MEDICARE, MEDICAID ==
[~2019-05-18] VITALS: Ht 193 cm; Wt 97.2 kg
[2019-05-18 15:55] VITALS: BP 167/111
[2019-05-18] MEDS ORDERED: AZITHROMYCIN 500 MG TABLET PO ONE (16:30)
[2019-05-18] MEDS ORDERED: CEFTRIAXONE 250 MG IM ONE (16:30)
[2019-05-18] MEDS ORDERED: AZITHROMYCIN 500 MG TABLET ONE (16:41)
[2019-05-18] MEDS ORDERED: CEFTRIAXONE 250 MG ONE (16:41)
[2019-05-18] MEDS ORDERED: LIDOCAINE-MPF 1%, 2ML ONE (16:41)
--- NOTE | 2019-05-18 17:44 | NUR ---
PT UP TO RESTROOM TO PROVIDE A URINE SAMPLE. URINE COLLECTED AND SENT. CALL LIGHT IN REACH.
== END 2019-05-18 17:54 | disposition home or self-care (01) ==
LOC: ED 16:21
DX: N34.2 Other urethritis (principal); I25.2 Old myocardial infarction; I11.0 Hypertensive heart disease with heart failure; I50.9 Heart failure, unspecified; J45.909 Unspecified asthma, uncomplicated
CPT/HCPCS: 87491; 87591; 96372; 99283; J0696

== ENCOUNTER 2019-06-10 23:26 | Emergency (ER) | payer MEDICARE, MEDICAID ==
[~2019-06-10] VITALS: Ht 188 cm; Wt 97.0 kg
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
--- NOTE | 2019-06-11 00:10 | NUR ---
PATIENT SLEEPING AT THIS TIME. SPO2 MONITOR IN PLACE
--- NOTE | 2019-06-11 01:00 | NUR ---
Report from Magi rn. Pt sleeping at this time. even rise and fall of chest observed. pt in NAD. Sitter in view of pt
--- NOTE | 2019-06-11 01:21 | NUR ---
REPORT GIVEN TO SHERRI TORRES. PLAN OF CARE DISCUSSED. SITTER IN SIGHT OF PATIENT
--- NOTE | 2019-06-11 02:32 | NUR ---
PATIENT SLEEPING AT THIS TIME. SPO2 MONITOR IN PLACE. PT AROUSES TO VOICE AND THEN FALL BACK TO SLEEP
--- NOTE | 2019-06-11 03:31 | NUR ---
PT SLEEPING. EVEN RISE AND FALL OF CHEST OBSERVED, PT IN NAD.
--- NOTE | 2019-06-11 04:00 | NUR ---
ONEIDAS ATTEMPTED TO AMBULATE PT WITH NO SUCCESS. WILL ATTEMPT AGAIN LATER
[2019-06-11 04:56] VITALS: BP 145/89
--- NOTE | 2019-06-11 05:00 | NUR ---
TECHS ATTEMPTED TO AMBULATE PT. PT REFUSING TO GET UP. WILL GIVE PT SOME MORE TIME AND THEN WILL CALL SECURITY TO ESCORT PT OUT.
--- NOTE | 2019-06-11 05:51 | NUR ---
PT GIVEN DISCHARGE INSTRUCTIONS. PT TOLD IT WAS TIME FOR HIM TO LEAVE. PT ROLLED OVER AND WENT BACK TO SLEEP. SECURITY CALLED TO ASSIST WITH DISCHARGE.
== END 2019-06-11 06:05 | disposition home or self-care (01) ==
LOC: ED 06-11 02:04
DX: F10.120 Alcohol abuse with intoxication, uncomplicated (principal); I25.10 Atherosclerotic heart disease of native coronary artery without angina pectoris; E11.9 Type 2 diabetes mellitus without complications; I11.0 Hypertensive heart disease with heart failure; I50.9 Heart failure, unspecified; J45.909 Unspecified asthma, uncomplicated; I25.2 Old myocardial infarction; F17.200 Nicotine dependence, unspecified, uncomplicated; Z86.39 Personal history of other endocrine, nutritional and metabolic disease; Y90.9 Presence of alcohol in blood, level not specified
CPT/HCPCS: 99283

== ENCOUNTER 2019-07-30 10:14 | Emergency (ER) | payer MEDICARE, MEDICAID ==
[~2019-07-30] VITALS: Ht 193 cm; Wt 91.0 kg
[~2019-07-30 10:14] MED LIST changes: +MULT-449 PO; -MULT1TAB60 PO
[2019-07-30 10:31] VITALS: BP 130/98
[2019-07-30] MEDS ORDERED: CEFTRIAXONE 250 MG IM ONE (11:00)
[2019-07-30] MEDS ORDERED: AZITHROMYCIN 500 MG TABLET PO ONE (11:00)
[2019-07-30] MEDS ORDERED: CEFTRIAXONE 250 MG ONE (11:02)
[2019-07-30] MEDS ORDERED: AZITHROMYCIN 500 MG TABLET ONE (11:02)
[2019-07-30] MEDS ORDERED: LIDOCAINE-MPF 1%, 5ML ONE (11:03)
== END 2019-07-30 11:25 | disposition home or self-care (01) ==
LOC: ED 11:22
DX: A56.01 Chlamydial cystitis and urethritis (principal); A59.03 Trichomonal cystitis and urethritis; Z88.8 Allergy status to other drugs, medicaments and biological substances; Z76.0 Encounter for issue of repeat prescription; Z87.891 Personal history of nicotine dependence
CPT/HCPCS: 87491; 87591; 96372; 99283; J0696

== ENCOUNTER 2019-08-04 13:20 | Emergency (ER) | payer MEDICARE, MEDICAID ==
[~2019-08-04] VITALS: Ht 193 cm; Wt 91.0 kg
[2019-08-04 13:30] VITALS: BP 137/97
--- NOTE | 2019-08-04 13:41 | NUR ---
BREAK RN: THIS IS A 49 YO MALE WHO PRESENTS TO THE ER VIA [facility] C/O MID LOWER PERIUMBILICAL PAIN, NAUSEA AND REPORTS BLOOD IN URINE SINCE THIS MORNING. PT HAS HX OF ETOH ABUSE AND REPORTS LAST DRINK WAS APPROX 2 HRS AGO. PT HAS ETOH ODOR. PT REQUESTING PAIN MEDICATION, PT AWARE WE ARE WAITING FOR ERMD EVAL FIRST. PT ON CONT BP, CARDIAC AND SPO2 MONITORS. CALL LIGHT WITHIN REACH.
--- NOTE | 2019-08-04 14:06 | NUR ---
REPORT FROM SHERRI HENRY
[2019-08-04] MEDS ORDERED: ONDANSETRON 2MG/ML, 2ML IVPush ONE (14:30)
[2019-08-04] MEDS ORDERED: SODIUM CHLORIDE 0.9% 1,000ML IVBOLUS ONE (14:30)
[2019-08-04 14:42] LABS: ALANINE AMINOTRANSFERASE 98 U/L (12-78); ALBUMIN 3.2 g/dL (3.4-5.0); ANION GAP 12 mmol/L (5-15); CHLORIDE 112 mmol/L (98-107); CREATININE 0.85 mg/dL (0.7-1.3)
[2019-08-04 14:45] LABS: ALKALINE PHOSPHATASE 61 U/L (45-117); BILIRUBIN,TOTAL 0.4 mg/dL (0.2-1.0); TOTAL PROTEIN 7.5 g/dL (6.4-8.2)
[2019-08-04] MEDS ORDERED: ONDANSETRON 2MG/ML, 2ML ONE (14:48)
[2019-08-04] MEDS ORDERED: MORPHINE SULFATE 4 MG/ML, 1ML ONE ×2 (14:48→16:03)
[2019-08-04] MEDS: MORPHINE SULFATE 4 MG/ML, 1ML IVPush PRN ×2 (14:52→16:05)
[2019-08-04 15:12] LABS: BASOPHILS # (AUTO) 0.03 x10^3/uL (0-0.1); BASOPHILS % (AUTO) 1 % (0-1); EOSINOPHILS # (AUTO) 0.11 x10^3/uL (0-0.4); EOSINOPHILS % (AUTO) 3 % (1-7); LYMPHOCYTES # (AUTO) 1.49 x10^3/uL (1-3.4); LYMPHOCYTES % (AUTO) 47 % (22-44); MD MORPH REVIEW ONLY; MEAN CORPUSCULAR HEMOGLOBIN 28.2 pg (27.5-34.5); MEAN CORPUSCULAR HGB CONC 32.5 g/dL (33.2-36.2); MEAN CORPUSCULAR VOLUME 86.8 fL (81-97); MEAN PLATELET VOLUME 8.9 fL (7.4-10.4); MONOCYTES # (AUTO) 0.44 x10^3/uL (0.2-0.8); MONOCYTES % (AUTO) 14 % (2-9); NEUTROPHILS # (AUTO) 1.08 x10^3/uL (1.8-6.8); NEUTROPHILS % (AUTO) 34 % (42-75); PLATELET COUNT 200 x10^3/uL (130-400); RED BLOOD COUNT 4.89 x10^6/uL (4.38-5.82); RED CELL DISTRIBUTION WIDTH 20.6 % (9.4-14.8)
[2019-08-04 15:13] LABS: <PLATELET ESTIMATE> ADEQUATE; <RBC MORPHOLOGY> NORMAL; LARGE PLATELETS 1+
--- NOTE | 2019-08-04 15:21 | NUR ---
PT RESTING IN BED. DENIES ANY NEEDS OR CONCERNS AT THIS TIME. CALL LIGHT IN REACH.
[2019-08-04] MEDS ORDERED: OMNIPAQUE 350 MG/ML, 100ML BOTTLE ONE (16:22)
[2019-08-04] MEDS ORDERED: PHENAZOPYRIDINE 200 MG TABLET ONE (17:18)
[2019-08-04] MEDS ORDERED: PHENAZOPYRIDINE 200 MG TABLET PO ONE (18:00)
== END 2019-08-04 17:59 | disposition home or self-care (01) ==
LOC: ED 17:40
DX: R10.31 Right lower quadrant pain (principal); R10.9 Unspecified abdominal pain; R30.0 Dysuria; R19.7 Diarrhea, unspecified; R94.31 Abnormal electrocardiogram [ECG] [EKG]; E11.9 Type 2 diabetes mellitus without complications; K21.9 Gastro-esophageal reflux disease without esophagitis; I25.2 Old myocardial infarction; I11.0 Hypertensive heart disease with heart failure; I50.9 Heart failure, unspecified; J45.909 Unspecified asthma, uncomplicated; Z86.39 Personal history of other endocrine, nutritional and metabolic disease
CPT/HCPCS: 36415; 74177; 80053; 83690; 85025; 93005; 96361; 96374; 96375; 96376; 99285; J2270; J2405; J7030; Q9967

== ENCOUNTER 2019-09-07 06:04 | Inpatient (IN) | payer MEDICARE, MEDICAID ==
[~2019-09-07] VITALS: Ht 182.9 cm; Wt 83.4 kg
[~2019-09-07 06:04] MED LIST changes: -CALC-666 PO; +CALC500T14 PO
--- NOTE | 2019-09-07 06:08 | NUR ---
PT WITH A HX OF PA, NO STENTS. PT STATES HE STARTED HAVING CHEST PAIN TODAY. 11/20, RIGHT SIDED. EMS GAVE MORPHINE AND ASA OUTPATIENT COORDINATOR.
[2019-09-07] MEDS ORDERED: MORPHINE SULFATE 4 MG/ML, 1ML ONE (06:18)
[2019-09-07] MEDS ORDERED: MIDAZOLAM 1 MG/ML, 5ML ONE (06:19)
[2019-09-07] MEDS ORDERED: FENTANYL PF 100 MCG/2ML ONE (06:19)
[2019-09-07] MEDS ORDERED: BIVALIRUDIN 250 MG ONE (06:19)
[2019-09-07] MEDS ORDERED: LIDOCAINE 1%, 20ML ONE (06:20)
--- NOTE | 2019-09-07 06:20 | NUR ---
PT PLACED IN GOWN, PIV'S PLACED IN BILAT AC. STEMI TRACKING TOOL COMPLETE.
--- NOTE | 2019-09-07 06:24 | NUR ---
PT READY FOR CHIEF PAYROLL CLERK. AWAITING OK FROM CHIEF PAYROLL CLERK TO TRANSPORT PT.
[2019-09-07 06:27] LABS: MEAN CORPUSCULAR HEMOGLOBIN 28.4 pg (27.5-34.5); MEAN CORPUSCULAR HGB CONC 32.1 g/dL (33.2-36.2); MEAN PLATELET VOLUME 8.4 fL (7.4-10.4); PLATELET COUNT 218 x10^3/uL (130-400); RED BLOOD COUNT 5.01 x10^6/uL (4.38-5.82); RED CELL DISTRIBUTION WIDTH 18.4 % (9.4-14.8)
[2019-09-07] MEDS ORDERED: SODIUM CHLORIDE FLUSH 10ML SYR IVF PRN (06:30)
[2019-09-07] MEDS ORDERED: MORPHINE SULFATE 4 MG/ML, 1ML IVPush PRN (06:30)
[2019-09-07] MEDS ORDERED: NITROGLYCERIN 0.4 MG BOTTLE (25 TABS) SL PRN (06:30)
[2019-09-07] MEDS ORDERED: DIPHENHYDRAMINE 50 MG/ML, 1ML ONE (06:32)
[2019-09-07 06:38] LABS: ALANINE AMINOTRANSFERASE 94 U/L (12-78); ALBUMIN 3.7 g/dL (3.4-5.0); ANION GAP 12 mmol/L (5-15); CHLORIDE 105 mmol/L (98-107); CREATININE 0.96 mg/dL (0.7-1.3)
[2019-09-07 06:42] LABS: ALKALINE PHOSPHATASE 61 U/L (45-117); BILIRUBIN,TOTAL 0.9 mg/dL (0.2-1.0); TOTAL PROTEIN 8.4 g/dL (6.4-8.2); TROPONIN I 0.079 ng/mL (0.000-0.045)
[2019-09-07 06:47] LABS: INTERNATIONAL NORMALIZED RATIO 0.9 (0.93-1.1); PROTHROMBIN TIME 9.5 Seconds (9.6-11.5)
--- NOTE | 2019-09-07 06:47 | NUR ---
I ASSISTED WITH PT TRANSPORT TO LIVESTOCK SALES REPRESENTATIVE. REPORT TO RECIEVING RN IN LIVESTOCK SALES REPRESENTATIVE.
[2019-09-07] MEDS ORDERED: HEPARIN 1,000 UNITS/ML, 10ML ONE (06:51)
[2019-09-07 07:38] LABS: MD YES
[2019-09-07 07:47] LABS: BAND#(MANUAL) 0.06 x10^3/uL; BANDS%(MANUAL) 1 % (0-7); LYMPH#(MANUAL) 2.52 x10^3/uL (1-3.4); LYMPHS% (MANUAL) 45 % (22-44); MONOS#(MANUAL) 0.62 x10^3/uL (0.3-2.7); MONOS% (MANUAL) 11 % (2-9); REACTIVE LYMPHS # (MANUAL) 0.17 x10^3/uL (0-0); REACTIVE LYMPHS % (MANUAL) 3 % (0-0); SEG#(MANUAL) 2.24 x10^3/uL (1.8-6.8); SEGS% (MANUAL) 40 % (42-75)
[2019-09-07 07:49] LABS: <PLATELET ESTIMATE> ADEQUATE; <RBC MORPHOLOGY> NORMAL; LARGE PLATELETS 1+
[2019-09-07 08:05] VITALS: BP 156/105
[2019-09-07 08:22] VITALS: BP 158/105
[2019-09-07] MEDS ORDERED: LORazepam 1MG TABLET PO PRN ×4 (08:30)
[2019-09-07] MEDS ORDERED: LORazepam 0.5MG TABLET PO PRN (08:30)
[2019-09-07] MEDS ORDERED: hydrALAzine 20 MG/ML, 1ML IVPush PRN (08:30)
[2019-09-07] MEDS ORDERED: LORazepam 2 MG/ML, 1ML IV PRN ×5 (08:30)
[2019-09-07] MEDS ORDERED: METOCLOPRAMIDE 5 MG/ML, 2ML IVPush PRN (08:30)
[2019-09-07] MEDS: FOLIC ACID 1 MG TABLET PO SCH (09:07)
[2019-09-07] MEDS: MULTIVITAMINS/MINERALS TABLET PO SCH (09:07)
[2019-09-07] MEDS: METOPROLOL TARTRATE 25 MG TAB PO SCH ×2 (09:07→20:07)
[2019-09-07 10:21] LABS: TROPONIN I 0.136 ng/mL (0.000-0.045)
[2019-09-07] MEDS ORDERED: OLAN20TA3 PO (12:16)
[2019-09-07] MEDS: AMLODIPINE 5 MG TABLET PO SCH ×2 (12:33→20:07)
[2019-09-07] MEDS: ACETAMINOPHEN 325 MG TABLET PO PRN ×2 (12:34→18:45)
[2019-09-07 12:41] VITALS: BP 159/111
[2019-09-07] MEDS: KETOROLAC 30 MG/1 ML IVPush SCH ×2 (13:44→19:54)
[2019-09-07 14:02] LABS: TROPONIN I 0.179 ng/mL (0.000-0.045)
[2019-09-07 14:58] LABS: C-REACTIVE PROTEIN, QUANT 0.03 mg/dL (0.02-0.49)
[2019-09-07] MEDS ORDERED: HEPARIN 5,000 UNITS/ML, 1ML IV PRN (15:00)
[2019-09-07] MEDS ORDERED: HEPARIN 5,000 UNITS/ML, 1ML IV ONE (15:00)
[2019-09-07] MEDS ORDERED: HEPARIN 25,000 UNITS/250ML PMX 250 ML IV PRN (15:00)
[2019-09-07 20:00] VITALS: BP 166/109
[2019-09-08 00:15] VITALS: BP 164/118
[2019-09-08] MEDS ORDERED: OCTREOTIDE 1,250 MCG in SODIUM CHLORIDE 0.9% 247.5 ML IV SCH (01:00)
[2019-09-08] MEDS ORDERED: OCTREOTIDE 100MCG/ML, 1ML (0.1MG/ML) IVPush ONE (01:00)
[2019-09-08] MEDS ORDERED: PANTOPRAZOLE 80 MG in SODIUM CHLORIDE 0.9% 50 ML IV ONE (01:00)
[2019-09-08] MEDS: PANTOPRAZOLE 80 MG in SODIUM CHLORIDE 0.9% 100 ML IV SCH ×2 (01:41→14:56)
[2019-09-08] MEDS: KETOROLAC 30 MG/1 ML IVPush SCH ×4 (01:50→21:53)
[2019-09-08 01:53] LABS: ANION GAP 11 mmol/L (5-15); BASOPHILS # (AUTO) 0.04 x10^3/uL (0-0.1); BASOPHILS % (AUTO) 1 % (0-1); CALCIUM 7.5 mg/dL (8.5-10.1); CHLORIDE 104 mmol/L (98-107); CHOLESTEROL, TOTAL 181 mg/dL (140-239); CREATININE 0.55 mg/dL (0.7-1.3); EOSINOPHILS # (AUTO) 0.08 x10^3/uL (0-0.4); EOSINOPHILS % (AUTO) 1 % (1-7); LYMPHOCYTES # (AUTO) 1.33 x10^3/uL (1-3.4); LYMPHOCYTES % (AUTO) 25 % (22-44); MD NO; MEAN CORPUSCULAR HEMOGLOBIN 28.4 pg (27.5-34.5); MEAN PLATELET VOLUME 9.1 fL (7.4-10.4); MONOCYTES % (AUTO) 4 % (2-9); NEUTROPHILS # (AUTO) 3.67 x10^3/uL (1.8-6.8); NEUTROPHILS % (AUTO) 69 % (42-75); PLATELET COUNT 175 x10^3/uL (130-400); RED BLOOD COUNT 4.66 x10^6/uL (4.38-5.82); RED CELL DISTRIBUTION WIDTH 18.2 % (9.4-14.8); TRIGLYCERIDES 60 mg/dL (50-200); VLDL CHOLESTEROL 12 mg/dL (0-25)
[2019-09-08 01:54] LABS: CHOL/HDL RATIO 1.6; HDL CHOL % 62 % (26-37); HDL CHOLESTEROL (DIRECT) 112 mg/dL (40-60); LDL CHOLESTEROL,CALCULATED 57 mg/dL (54-169); LDL/HDL RATIO 0.5 (0.5-3.0)
[2019-09-08 03:08] VITALS: BP 132/87
[2019-09-08] MEDS ORDERED: ASPIRIN 81 MG TABLET EC PO SCH (06:00)
[2019-09-08 07:32] VITALS: BP 134/87
[2019-09-08] MEDS: MULTIVITAMINS/MINERALS TABLET PO SCH (08:18)
[2019-09-08] MEDS: FOLIC ACID 1 MG TABLET PO SCH (08:19)
[2019-09-08] MEDS: AMLODIPINE 5 MG TABLET PO SCH ×2 (08:19→20:36)
[2019-09-08] MEDS: METOPROLOL TARTRATE 25 MG TAB PO SCH (08:19)
[2019-09-08] MEDS ORDERED: OMNIPAQUE 350 MG/ML, 75ML BOTTLE ONE (11:22)
[2019-09-08 12:45] VITALS: BP 130/87
[2019-09-08] MEDS ORDERED: PROPOFOL 50 ML ONE (13:33)
[2019-09-08] MEDS ORDERED: CHLORHEXIDINE 15 ML UDC ONE (13:44)
[2019-09-08] MEDS ORDERED: hydrALAzine 20 MG/ML, 1ML IV PRN (14:00)
[2019-09-08] MEDS ORDERED: EPHEDRINE 50 MG/ML, 1ML IVPush PRN (14:00)
[2019-09-08] MEDS ORDERED: ONDANSETRON 2MG/ML, 2ML IVPush PRN (14:00)
[2019-09-08] MEDS ORDERED: LABETALOL 5MG/ML, 20ML IV PRN (14:00)
[2019-09-08] MEDS ORDERED: FENTANYL PF 100 MCG/2ML IV PRN (14:00)
[2019-09-08] MEDS ORDERED: ACETAMINOPHEN 325 MG TABLET PO PRN (14:00)
[2019-09-08] MEDS ORDERED: OXYcodone 5 MG/5 ML ORAL.SOL UDC PO PRN (14:00)
[2019-09-08] MEDS ORDERED: MEPERIDINE/PF 25MG/0.5ML IVPush PRN (14:00)
[2019-09-08] MEDS ORDERED: HYDROmorphone 1 MG/ML, 1ML INJ IVPush PRN (14:00)
[2019-09-08] MEDS ORDERED: PROMETHAZINE 25 MG/ML, 1ML IVPush PRN (14:00)
[2019-09-08] MEDS: OMEPRAZOLE 20 MG CAPSULE.DR PO SCH (15:37)
[2019-09-08] MEDS: AMPICILLIN/SULBACTAM 3 GM in SODIUM CHLORIDE 0.9% 100 ML IV SCH ×2 (15:40→20:36)
[2019-09-08] MEDS: CARVEDILOL 12.5 MG TABLET PO SCH (18:15)
[2019-09-08 18:27] VITALS: BP 110/73
[2019-09-09 00:33] VITALS: BP 108/69
[2019-09-09] MEDS: AMPICILLIN/SULBACTAM 3 GM in SODIUM CHLORIDE 0.9% 100 ML IV SCH ×2 (04:08→10:48)
[2019-09-09] MEDS: CARVEDILOL 12.5 MG TABLET PO SCH ×2 (04:08→17:51)
[2019-09-09] MEDS: KETOROLAC 30 MG/1 ML IVPush SCH ×2 (04:09→10:00)
[2019-09-09] MEDS: OMEPRAZOLE 20 MG CAPSULE.DR PO SCH ×2 (05:06→17:48)
[2019-09-09 08:53] VITALS: BP 124/82
[2019-09-09] MEDS: FOLIC ACID 1 MG TABLET PO SCH (10:48)
[2019-09-09] MEDS: AMLODIPINE 5 MG TABLET PO SCH ×2 (10:48→20:52)
[2019-09-09] MEDS: MULTIVITAMINS/MINERALS TABLET PO SCH (10:48)
[2019-09-09 15:16] VITALS: BP 121/73
[2019-09-09] MEDS: AMOXICILLIN/CLAV 875-125MG TABLET PO SCH (17:48)
[2019-09-09] MEDS: ISOSORBIDE DINITRATE 10 MG TABLET PO SCH ×2 (17:48→20:52)
[2019-09-09 20:45] VITALS: BP 118/82
[2019-09-10 01:29] VITALS: BP 130/82
[2019-09-10] MEDS: AMOXICILLIN/CLAV 875-125MG TABLET PO SCH (05:20)
[2019-09-10] MEDS: CARVEDILOL 12.5 MG TABLET PO SCH (05:20)
[2019-09-10] MEDS: OMEPRAZOLE 20 MG CAPSULE.DR PO SCH (05:20)
[2019-09-10 08:50] VITALS: BP 111/72
[2019-09-10] MEDS: MULTIVITAMINS/MINERALS TABLET PO SCH (09:56)
[2019-09-10] MEDS: AMLODIPINE 5 MG TABLET PO SCH (09:56)
[2019-09-10] MEDS: ISOSORBIDE DINITRATE 10 MG TABLET PO SCH (09:56)
[2019-09-10] MEDS: FOLIC ACID 1 MG TABLET PO SCH (09:56)
[2019-09-10] MEDS: ACETAMINOPHEN 325 MG TABLET PO PRN (11:06)
[2019-09-10] MEDS ORDERED: HYDR-3341 PO (12:10)
[2019-09-10] MEDS ORDERED: CARV12.52 PO (12:10)
[2019-09-10] MEDS ORDERED: AMOX1TAB12 PO (12:10)
[2019-09-10] MEDS ORDERED: OMEP-110 PO (12:10)
[2019-09-10] MEDS ORDERED: SUCR1TAB33 PO (12:10)
[2019-09-10] MEDS ORDERED: AMLO-150 PO (12:10)
[2019-09-10] MEDS ORDERED: ISOS10TA2 PO (12:10)
== END 2019-09-10 14:30 | disposition home or self-care (01) | DRG 391 ==
LOC: ED 06:26 → EDIP 06:27 → 5SO 07:25 → DCLOUNGE 09-10 13:52
PROVIDERS: ADMIT Internal Medicine; ATTEND Internal Medicine
PROC: 4A023N7 Measurement of Cardiac Sampling and Pressure, Left Heart, Percutaneous Approach (ICD-10-PCS; principal; 2019-09-07)
PROC: B2111ZZ Fluoroscopy of Multiple Coronary Arteries using Low Osmolar Contrast (ICD-10-PCS; 2019-09-07)
PROC: B2151ZZ Fluoroscopy of Left Heart using Low Osmolar Contrast (ICD-10-PCS; 2019-09-07)
PROC: 0DB38ZX Excision of Lower Esophagus, Via Natural or Artificial Opening Endoscopic, Diagnostic (ICD-10-PCS; 2019-09-08)
DX: K20.9 Esophagitis, unspecified (principal); J18.9 Pneumonia, unspecified organism; F10.239 Alcohol dependence with withdrawal, unspecified; I50.22 Chronic systolic (congestive) heart failure; D62 Acute posthemorrhagic anemia; K92.0 Hematemesis; I42.8 Other cardiomyopathies; I25.10 Atherosclerotic heart disease of native coronary artery without angina pectoris; K70.9 Alcoholic liver disease, unspecified; F25.9 Schizoaffective disorder, unspecified; F15.10 Other stimulant abuse, uncomplicated; I11.0 Hypertensive heart disease with heart failure; K44.9 Diaphragmatic hernia without obstruction or gangrene; K22.8 Other specified diseases of esophagus; F39 Unspecified mood [affective] disorder; J45.909 Unspecified asthma, uncomplicated; T46.4X5A Adverse effect of angiotensin-converting-enzyme inhibitors, initial encounter; T78.3XXA Angioneurotic edema, initial encounter; F32.9 Major depressive disorder, single episode, unspecified; Z80.3 Family history of malignant neoplasm of breast; Z88.8 Allergy status to other drugs, medicaments and biological substances; Z03.818 Encounter for observation for suspected exposure to other biological agents ruled out
CPT/HCPCS: 36415; 71045; 71275; 80047; 80048; 80053; 80061; 80307; 83615; 83735; 84100; 84145; 84484; 85018; 85025; 85379; 85520; 85610; 85730; 86140; 86850; 86900; 87635; 88305; 88342; 93005; 93306; 93356; 93458; 93970; 96374; 99156; C1769; C1894; G0378; J0295; J0583; J1644; J1885; J2250; J2354; J2704; J3010; Q9967; C1887; C9113; J0360; J1200; J2060; J2270; J7050

== ENCOUNTER 2019-11-20 11:54 | Observation (INO) | payer MEDICARE, MEDICAID ==
[~2019-11-20] VITALS: Ht 193 cm; Wt 82.1 kg
[~2019-11-20 11:54] MED LIST changes: +AMOX1TAB12 PO; +CARV12.52 PO; +ISOS10TA2 PO; +OMEP-110 PO; +SUCR1TAB33 PO
[2019-11-20] MEDS ORDERED: METO50TA82 PO (12:11)
--- NOTE | 2019-11-20 12:12 | NUR ---
PT [place]. PER EMS REPORT PT IS COMPLAINING OF CP AFTER RELAPSING ON ETOH AND METH 4 DAYS AGO. PER PT CP HAS BEEN GOING ON SINCE 3 DAYS AGO. PT ALSO RAN OUT OF BP MEDS 2 WEEKS AGO PER PT. PT STATES CP IS 8/10 RIGHT NOW AND FEELS LIKE "SHARP PRESSURE". PT PLACED ON DISC JOCKEY AND CONTINUOUS PULSE OX. EKG DONE.
[2019-11-20] MEDS ORDERED: ASPIRIN 81 MG TABLET CHEW ONE (12:13)
[2019-11-20] MEDS ORDERED: ASPIRIN 81 MG TABLET CHEW PO ONE (12:30)
[2019-11-20 12:38] LABS: BASOPHILS % (AUTO) 1 % (0-1); EOSINOPHILS % (AUTO) 1 % (1-7); LYMPHOCYTES % (AUTO) 28 % (22-44); MEAN CORPUSCULAR HEMOGLOBIN 29.2 pg (27.5-34.5); MEAN CORPUSCULAR HGB CONC 32.6 g/dL (33.2-36.2); MEAN PLATELET VOLUME 8.8 fL (7.4-10.4); MONOCYTES % (AUTO) 10 % (2-9); NEUTROPHILS % (AUTO) 61 % (42-75); PLATELET COUNT 203 x10^3/uL (130-400); RED BLOOD COUNT 4.92 x10^6/uL (4.38-5.82); RED CELL DISTRIBUTION WIDTH 14.7 % (9.4-14.8)
[2019-11-20 12:42] LABS: MD NO
[2019-11-20 12:48] LABS: ALANINE AMINOTRANSFERASE 110 U/L (12-78); ALBUMIN 3.4 g/dL (3.4-5.0); ANION GAP 8 mmol/L (5-15); CALCIUM 8.2 mg/dL (8.5-10.1); CHLORIDE 101 mmol/L (98-107); CREATININE 0.88 mg/dL (0.7-1.3)
[2019-11-20 12:52] LABS: ALKALINE PHOSPHATASE 88 U/L (45-117); BILIRUBIN,TOTAL 2.1 mg/dL (0.2-1.0); TROPONIN I < 0.015 ng/mL (0.000-0.045)
[2019-11-20] MEDS ORDERED: POTASSIUM CHLORIDE 20 MEQ TAB.ER.PRT PO ONE (13:00)
--- NOTE | 2019-11-20 13:26 | NUR ---
BREAK RN: PT SITTING UP ON GURNEY, NO ACUTE DISTRESS NOTED. SR PER MONITOR. AUTO BP AND PULSE OX IN PLACE. PT AWARE OF TESTING COMPLETED. MD TO REVIEW AND COME DISCUSS WITH PT. UNDERSTANDING VERBALIZED. NO NEEDS EXPRESSED AT THIS TIME.
[2019-11-20] MEDS ORDERED: POTASSIUM CHLORIDE 20 MEQ TAB.ER.PRT ONE (13:37)
--- NOTE | 2019-11-20 13:53 | NUR ---
PT RESTING, NO ACUTE DISTRESS AT THIS MOMENT.
--- NOTE | 2019-11-20 14:27 | NUR ---
MEAL TRAY ORDERED FOR PT. PT RESTING IN BED, STATES NO OTHER NEEDS AT THIS TIME.
[2019-11-20] MEDS ORDERED: POLYETHYLENE GLYCOL 17 GM PACKET PO PRN (14:30)
[2019-11-20] MEDS ORDERED: DOCUSATE 100 MG CAPSULE PO PRN (14:30)
[2019-11-20] MEDS ORDERED: ONDANSETRON ODT 4 MG PO PRN (14:30)
[2019-11-20] MEDS ORDERED: GABAPENTIN 300 MG CAPSULE PO PRN (14:30)
[2019-11-20] MEDS ORDERED: LABETALOL 5MG/ML, 20ML IVPush PRN (14:30)
[2019-11-20] MEDS ORDERED: ONDANSETRON 2MG/ML, 2ML IVPush PRN (14:30)
[2019-11-20] MEDS ORDERED: BISACODYL 10 MG SUPP PR PRN (14:30)
[2019-11-20] MEDS ORDERED: hydrALAzine 20 MG/ML, 1ML IVPush PRN (14:30)
[2019-11-20] MEDS ORDERED: ACETAMINOPHEN 325 MG TABLET PO PRN (14:30)
--- NOTE | 2019-11-20 14:36 | NUR ---
Hospital bed requested for pt.
[2019-11-20] MEDS ORDERED: MAALOX/HYOSCYAMINE/LIDOCAINE 45 ML BTL PO PRN (15:00)
[2019-11-20] MEDS ORDERED: SODIUM CHLORIDE FLUSH 10ML SYR IVF PRN (15:00)
--- NOTE | 2019-11-20 15:17 | NUR ---
Pt ambulatory to bathroom and back to bed with steady gait. Pt placed in hospital bed, able to position self for comfort. Pt eating meal provided, denies other needs.
[2019-11-20] MEDS: SUCRALFATE 1 GM TABLET PO SCH ×2 (15:52→20:59)
--- NOTE | 2019-11-20 16:19 | NUR ---
Jacey varner in ED - 11/20/19 at 1619 by MARTÍN PT UP TO [facility]. PT PROVIDED WITH NEW BLANKETS, PT REPORTS NO COMPLAINTS AT THIS TIME.
--- NOTE | 2019-11-20 16:37 | NUR ---
PT RESTING IN GURNEY WITH EYES CLOSED, NAD AT THIS TIME.
--- NOTE | 2019-11-20 17:11 | NUR ---
Pt resting in bed, NADN, denies needs. POC discussed.
[2019-11-20 18:42] LABS: TROPONIN I < 0.015 ng/mL (0.000-0.045)
--- NOTE | 2019-11-20 18:55 | NUR ---
REPORT GIVEN TO SHERRI LUTZ.
[2019-11-20 20:26] VITALS: BP 137/100
[2019-11-20] MEDS: LORazepam 0.5MG TABLET PO PRN (20:59)
[2019-11-20] MEDS: AMLODIPINE 5 MG TABLET PO SCH (21:00)
[2019-11-20] MEDS ORDERED: LORazepam 1MG TABLET PO PRN ×4 (21:00)
[2019-11-20] MEDS ORDERED: LORazepam 2 MG/ML, 1ML IV PRN ×5 (21:00)
[2019-11-20] MEDS: CARVEDILOL 12.5 MG TABLET PO SCH (21:00)
[2019-11-20] MEDS: OMEPRAZOLE 20 MG CAPSULE.DR PO SCH (21:01)
[2019-11-21 00:28] VITALS: BP 104/74
[2019-11-21 00:55] LABS: TROPONIN I < 0.015 ng/mL (0.000-0.045)
[2019-11-21] MEDS: CARVEDILOL 12.5 MG TABLET PO SCH (05:28)
[2019-11-21] MEDS: OMEPRAZOLE 20 MG CAPSULE.DR PO SCH (05:28)
[2019-11-21 05:35] LABS: ALBUMIN 2.8 g/dL (3.4-5.0); ANION GAP 6 mmol/L (5-15); CALCIUM 8.2 mg/dL (8.5-10.1); CHLORIDE 104 mmol/L (98-107)
[2019-11-21 05:39] LABS: ALANINE AMINOTRANSFERASE 85 U/L (12-78); ALKALINE PHOSPHATASE 71 U/L (45-117); BILIRUBIN,TOTAL 1.4 mg/dL (0.2-1.0); CREATININE 0.85 mg/dL (0.7-1.3); TOTAL PROTEIN 6.8 g/dL (6.4-8.2)
[2019-11-21 05:57] LABS: BASOPHILS % (AUTO) 1 % (0-1); EOSINOPHILS % (AUTO) 2 % (1-7); LYMPHOCYTES % (AUTO) 44 % (22-44); MEAN PLATELET VOLUME 9.8 fL (7.4-10.4); MONOCYTES % (AUTO) 9 % (2-9); NEUTROPHILS % (AUTO) 44 % (42-75); PLATELET COUNT 183 x10^3/uL (130-400); RED BLOOD COUNT 4.54 x10^6/uL (4.38-5.82); RED CELL DISTRIBUTION WIDTH 14.8 % (9.4-14.8)
[2019-11-21 06:57] LABS: MD SCAN
[2019-11-21 08:17] VITALS: BP 111/76
[2019-11-21] MEDS: SUCRALFATE 1 GM TABLET PO SCH (08:26)
[2019-11-21] MEDS: LORazepam 0.5MG TABLET PO PRN (08:26)
[2019-11-21] MEDS: AMLODIPINE 5 MG TABLET PO SCH (08:26)
[2019-11-21] MEDS ORDERED: SUCR1TAB33 PO (09:24)
[2019-11-21] MEDS ORDERED: HYDR-3341 PO (09:24)
[2019-11-21] MEDS ORDERED: AMLO-150 PO (09:24)
[2019-11-21] MEDS ORDERED: CARV12.52 PO (09:24)
[2019-11-21] MEDS ORDERED: OMEP-110 PO (09:24)
== END 2019-11-21 11:23 | disposition home or self-care (01) ==
LOC: ED 12:10 → EDIP 13:46 → INTOOBSV 13:46 → 5SO 19:36 → DCLOUNGE 11-21 11:11
PROVIDERS: ADMIT Internal Medicine; ATTEND Internal Medicine
DX: R07.89 Other chest pain (principal); I16.0 Hypertensive urgency; E87.1 Hypo-osmolality and hyponatremia; E80.6 Other disorders of bilirubin metabolism; I25.10 Atherosclerotic heart disease of native coronary artery without angina pectoris; I42.8 Other cardiomyopathies; I11.0 Hypertensive heart disease with heart failure; I50.22 Chronic systolic (congestive) heart failure; E11.9 Type 2 diabetes mellitus without complications; J45.909 Unspecified asthma, uncomplicated; I25.2 Old myocardial infarction; K21.9 Gastro-esophageal reflux disease without esophagitis; R74.01 Elevation of levels of liver transaminase levels; F10.10 Alcohol abuse, uncomplicated; F15.10 Other stimulant abuse, uncomplicated; F17.200 Nicotine dependence, unspecified, uncomplicated; F32.9 Major depressive disorder, single episode, unspecified; Z87.19 Personal history of other diseases of the digestive system; Z91.14 Patient's other noncompliance with medication regimen; Z79.899 Other long term (current) drug therapy
CPT/HCPCS: 36415; 71046; 80053; 84484; 85025; 93005; 97161; 99285; G0378

== ENCOUNTER 2020-01-14 11:34 | Inpatient (IN) | payer MEDICARE, MEDICAID ==
[~2020-01-14] VITALS: Ht 193 cm; Wt 86.8 kg
[~2020-01-14 11:34] MED LIST changes: +AMLO-211 PO; -AMLO10TA8 PO; +METO50TA82 PO; -RISP3TAB3 PO; +RISP3TAB58 PO
[2020-01-14] MEDS ORDERED: DOCUSATE 100 MG CAPSULE PO PRN (12:30)
[2020-01-14] MEDS ORDERED: POLYETHYLENE GLYCOL 17 GM PACKET PO PRN (12:30)
[2020-01-14] MEDS ORDERED: BISACODYL 10 MG SUPP PR PRN (12:30)
[2020-01-14 14:29] VITALS: BP 170/102
[2020-01-14] MEDS ORDERED: FLU VACC QS2020-21(6MOS UP)/PF 60MCG/0.5 ML SYR IM SCH ×2 (15:00→18:30)
[2020-01-14 15:46] LABS: BASOPHILS % (AUTO) 1 % (0-1); EOSINOPHILS % (AUTO) 3 % (1-7); LYMPHOCYTES % (AUTO) 29 % (22-44); MEAN CORPUSCULAR HEMOGLOBIN 29.5 pg (27.5-34.5); MEAN CORPUSCULAR HGB CONC 33.4 g/dL (33.2-36.2); MEAN PLATELET VOLUME 8.6 fL (7.4-10.4); MONOCYTES % (AUTO) 8 % (2-9); NEUTROPHILS % (AUTO) 58 % (42-75); PLATELET COUNT 169 x10^3/uL (130-400); RED BLOOD COUNT 4.49 x10^6/uL (4.38-5.82); RED CELL DISTRIBUTION WIDTH 15.1 % (9.4-14.8)
[2020-01-14] MEDS: LORazepam 1MG TABLET PO SCH ×3 (15:53→23:00)
[2020-01-14 15:56] LABS: MD NO
[2020-01-14 16:02] LABS: FREE T4 (FREE THYROXINE) 0.82 ng/dL (0.76-1.46)
[2020-01-14] MEDS: OMEPRAZOLE 20 MG CAPSULE.DR PO SCH (17:52)
[2020-01-14] MEDS: ONDANSETRON ODT 4 MG PO PRN (17:57)
[2020-01-14] MEDS: CARVEDILOL 12.5 MG TABLET PO SCH (17:59)
[2020-01-14 19:35] VITALS: BP 149/84
[2020-01-14] MEDS: AMLODIPINE 5 MG TABLET PO SCH (20:28)
[2020-01-14] MEDS: ACETAMINOPHEN 325 MG TABLET PO PRN (20:28)
[2020-01-14] MEDS ORDERED: TRAZODONE 100MG TABLET PO SCH (21:00)
[2020-01-15] MEDS: LORazepam 1MG TABLET PO SCH ×5 (03:00→20:21)
[2020-01-15] MEDS ORDERED: CARVEDILOL 25 MG TABLET ONE ×2 (05:31→17:19)
[2020-01-15 05:45] VITALS: BP 131/86
[2020-01-15] MEDS: OMEPRAZOLE 20 MG CAPSULE.DR PO SCH ×2 (05:49→17:35)
[2020-01-15] MEDS: CARVEDILOL 12.5 MG TABLET PO SCH ×2 (05:50→17:34)
[2020-01-15 07:08] VITALS: BP 132/75
[2020-01-15 08:12] LABS: CHOL/HDL RATIO 1.9; LDL/HDL RATIO 0.7 (0.5-3.0)
[2020-01-15] MEDS: AMLODIPINE 5 MG TABLET PO SCH ×2 (08:29→20:21)
[2020-01-15] MEDS ORDERED: NICOTINE 21 MG/24 HR PATCH.TD24 TD SCH (09:00)
[2020-01-15] MEDS: ACAMPROSATE 333 MG TABLET.DR PO SCH ×3 (13:30→20:20)
[2020-01-15 19:37] VITALS: BP 127/83
[2020-01-15] MEDS: OLANZAPINE 10 MG TABLET PO SCH (20:21)
[2020-01-15] MEDS: TRAZODONE 150MG TABLET PO SCH (20:21)
[2020-01-16] MEDS: LORazepam 1MG TABLET PO SCH ×4 (03:00→20:37)
[2020-01-16 04:58] VITALS: BP 134/87
[2020-01-16] MEDS: OMEPRAZOLE 20 MG CAPSULE.DR PO SCH ×2 (05:07→16:33)
[2020-01-16] MEDS: CARVEDILOL 12.5 MG TABLET PO SCH ×2 (05:07→18:40)
[2020-01-16 07:11] VITALS: BP 120/81
[2020-01-16] MEDS: ACAMPROSATE 333 MG TABLET.DR PO SCH ×3 (09:03→20:36)
[2020-01-16] MEDS: AMLODIPINE 5 MG TABLET PO SCH ×2 (09:04→20:37)
[2020-01-16] MEDS: SERTRALINE 50MG TABLET PO SCH (09:04)
[2020-01-16] MEDS: ACETAMINOPHEN 325 MG TABLET PO PRN (09:04)
[2020-01-16] MEDS: ONDANSETRON ODT 4 MG PO PRN (09:04)
[2020-01-16 15:45] VITALS: BP 135/86
[2020-01-16 20:01] VITALS: BP 145/86
[2020-01-16] MEDS: TRAZODONE 150MG TABLET PO SCH (20:37)
[2020-01-16] MEDS: OLANZAPINE 10 MG TABLET PO SCH (20:37)
[2020-01-17] MEDS: LORazepam 1MG TABLET PO SCH ×4 (04:03→20:45)
[2020-01-17 05:21] VITALS: BP 144/67
[2020-01-17] MEDS: CARVEDILOL 12.5 MG TABLET PO SCH ×2 (05:26→17:45)
[2020-01-17] MEDS: OMEPRAZOLE 20 MG CAPSULE.DR PO SCH ×2 (05:29→16:15)
[2020-01-17 07:27] VITALS: BP 125/84
[2020-01-17] MEDS: ACAMPROSATE 333 MG TABLET.DR PO SCH ×3 (08:18→20:45)
[2020-01-17] MEDS: SERTRALINE 50MG TABLET PO SCH (08:18)
[2020-01-17] MEDS: AMLODIPINE 5 MG TABLET PO SCH ×2 (08:18→20:45)
[2020-01-17 15:45] VITALS: BP 134/77
[2020-01-17] MEDS: LORazepam 1MG TABLET PO PRN (15:47)
[2020-01-17 17:40] VITALS: BP 117/70
[2020-01-17 19:45] VITALS: BP 123/77
[2020-01-17] MEDS: OLANZAPINE 10 MG TABLET PO SCH (20:45)
[2020-01-17] MEDS: TRAZODONE 150MG TABLET PO SCH (20:45)
[2020-01-18] MEDS: LORazepam 1MG TABLET PO SCH ×4 (02:47→20:37)
[2020-01-18] MEDS: OMEPRAZOLE 20 MG CAPSULE.DR PO SCH ×2 (06:14→16:00)
[2020-01-18] MEDS: CARVEDILOL 12.5 MG TABLET PO SCH ×2 (06:14→17:33)
[2020-01-18 07:15] VITALS: BP 137/80
[2020-01-18] MEDS: AMLODIPINE 5 MG TABLET PO SCH ×2 (08:03→20:37)
[2020-01-18] MEDS: ACETAMINOPHEN 325 MG TABLET PO PRN (08:03)
[2020-01-18] MEDS: ACAMPROSATE 333 MG TABLET.DR PO SCH ×3 (08:03→20:40)
[2020-01-18] MEDS: SERTRALINE 50MG TABLET PO SCH (08:04)
[2020-01-18 15:44] VITALS: BP 113/73
[2020-01-18 19:56] VITALS: BP 107/70
[2020-01-18] MEDS: TRAZODONE 150MG TABLET PO SCH (20:38)
[2020-01-18] MEDS: OLANZAPINE 5 MG TABLET PO SCH (20:39)
[2020-01-19 00:05] LABS: MICROSCOPIC NOT IND
[2020-01-19] MEDS: LORazepam 1MG TABLET PO SCH ×4 (03:32→20:53)
[2020-01-19] MEDS: CARVEDILOL 12.5 MG TABLET PO SCH ×2 (06:18→17:12)
[2020-01-19] MEDS: OMEPRAZOLE 20 MG CAPSULE.DR PO SCH ×2 (06:18→17:12)
[2020-01-19 07:28] VITALS: BP 142/89
[2020-01-19] MEDS: AMLODIPINE 5 MG TABLET PO SCH ×2 (08:20→20:53)
[2020-01-19] MEDS: ACAMPROSATE 333 MG TABLET.DR PO SCH ×3 (08:20→20:52)
[2020-01-19] MEDS: SERTRALINE 50MG TABLET PO SCH (08:21)
[2020-01-19 19:49] VITALS: BP 126/78
[2020-01-19] MEDS: OLANZAPINE 5 MG TABLET PO SCH (20:53)
[2020-01-19] MEDS: TRAZODONE 150MG TABLET PO SCH (20:53)
[2020-01-20] MEDS: LORazepam 1MG TABLET PO SCH ×4 (03:03→21:20)
[2020-01-20] MEDS: CARVEDILOL 12.5 MG TABLET PO SCH ×2 (06:19→17:49)
[2020-01-20] MEDS: OMEPRAZOLE 20 MG CAPSULE.DR PO SCH ×2 (06:19→16:32)
[2020-01-20 07:19] VITALS: BP 151/98
[2020-01-20] MEDS: SERTRALINE 50MG TABLET PO SCH (08:26)
[2020-01-20] MEDS: AMLODIPINE 5 MG TABLET PO SCH ×2 (08:26→20:44)
[2020-01-20] MEDS: ACAMPROSATE 333 MG TABLET.DR PO SCH ×3 (08:27→20:43)
[2020-01-20 19:50] VITALS: BP 113/76
[2020-01-20] MEDS ORDERED: OLANZAPINE 10 MG TABLET ONE (20:37)
[2020-01-20] MEDS: OLANZAPINE 5 MG TABLET PO SCH (20:43)
[2020-01-20] MEDS: TRAZODONE 150MG TABLET PO SCH (20:45)
[2020-01-21] MEDS: LORazepam 1MG TABLET PO SCH ×2 (03:06→09:03)
[2020-01-21] MEDS: OMEPRAZOLE 20 MG CAPSULE.DR PO SCH ×2 (05:11→16:39)
[2020-01-21] MEDS: CARVEDILOL 12.5 MG TABLET PO SCH ×2 (05:11→17:33)
[2020-01-21 07:31] VITALS: BP 130/83
[2020-01-21] MEDS: ACAMPROSATE 333 MG TABLET.DR PO SCH ×3 (09:02→20:33)
[2020-01-21] MEDS: SERTRALINE 50MG TABLET PO SCH (09:03)
[2020-01-21] MEDS: AMLODIPINE 5 MG TABLET PO SCH ×2 (09:03→20:34)
[2020-01-21 18:08] VITALS: BP 119/84
[2020-01-21] MEDS: OLANZAPINE 5 MG TABLET PO SCH (20:31)
[2020-01-21] MEDS: ACETAMINOPHEN 325 MG TABLET PO PRN (20:33)
[2020-01-21] MEDS: TRAZODONE 150MG TABLET PO SCH (20:59)
[2020-01-22] MEDS: OMEPRAZOLE 20 MG CAPSULE.DR PO SCH ×2 (06:34→15:53)
[2020-01-22] MEDS: CARVEDILOL 12.5 MG TABLET PO SCH ×2 (06:34→18:02)
[2020-01-22 07:15] VITALS: BP 130/86
[2020-01-22] MEDS: ACAMPROSATE 333 MG TABLET.DR PO SCH ×3 (08:59→20:26)
[2020-01-22] MEDS: AMLODIPINE 5 MG TABLET PO SCH ×2 (08:59→20:27)
[2020-01-22] MEDS: SERTRALINE 50MG TABLET PO SCH (08:59)
[2020-01-22 20:00] VITALS: BP 106/67
[2020-01-22] MEDS: OLANZAPINE 5 MG TABLET PO SCH (20:26)
[2020-01-22] MEDS: ACETAMINOPHEN 325 MG TABLET PO PRN (20:27)
[2020-01-22] MEDS: TRAZODONE 150MG TABLET PO SCH (20:28)
[2020-01-23] MEDS: OMEPRAZOLE 20 MG CAPSULE.DR PO SCH ×2 (05:42→15:37)
[2020-01-23] MEDS: CARVEDILOL 12.5 MG TABLET PO SCH ×2 (05:42→17:31)
[2020-01-23 07:15] VITALS: BP 129/82
[2020-01-23] MEDS: SERTRALINE 50MG TABLET PO SCH (08:25)
[2020-01-23] MEDS: ACAMPROSATE 333 MG TABLET.DR PO SCH ×3 (08:25→20:40)
[2020-01-23] MEDS: AMLODIPINE 5 MG TABLET PO SCH ×2 (08:26→20:39)
[2020-01-23] MEDS ORDERED: LOPERAMIDE 2 MG CAPSULE PO PRN (11:00)
[2020-01-23 19:51] VITALS: BP 113/76
[2020-01-23] MEDS: ACETAMINOPHEN 325 MG TABLET PO PRN (20:39)
[2020-01-23] MEDS: OLANZAPINE 5 MG TABLET PO SCH (20:39)
[2020-01-23] MEDS: TRAZODONE 150MG TABLET PO SCH (20:45)
[2020-01-24] MEDS: OMEPRAZOLE 20 MG CAPSULE.DR PO SCH ×2 (06:11→16:07)
[2020-01-24] MEDS: CARVEDILOL 12.5 MG TABLET PO SCH ×2 (06:12→18:17)
[2020-01-24 07:17] VITALS: BP 117/85
[2020-01-24] MEDS: ACETAMINOPHEN 325 MG TABLET PO PRN (08:27)
[2020-01-24] MEDS: SERTRALINE 50MG TABLET PO SCH (08:27)
[2020-01-24] MEDS: ACAMPROSATE 333 MG TABLET.DR PO SCH ×3 (08:28→20:23)
[2020-01-24] MEDS: AMLODIPINE 5 MG TABLET PO SCH ×2 (08:28→20:23)
[2020-01-24 18:14] VITALS: BP 114/73
[2020-01-24 19:59] VITALS: BP 133/91
[2020-01-24] MEDS: OLANZAPINE 5 MG TABLET PO SCH (20:23)
[2020-01-24] MEDS: TRAZODONE 150MG TABLET PO SCH (20:23)
[2020-01-25] MEDS: OMEPRAZOLE 20 MG CAPSULE.DR PO SCH ×2 (06:04→16:21)
[2020-01-25] MEDS: CARVEDILOL 12.5 MG TABLET PO SCH ×3 (06:05→17:13)
[2020-01-25 06:15] VITALS: BP 148/100
[2020-01-25 07:21] VITALS: BP 129/82
[2020-01-25] MEDS: ACAMPROSATE 333 MG TABLET.DR PO SCH ×3 (07:59→20:29)
[2020-01-25] MEDS: AMLODIPINE 5 MG TABLET PO SCH ×2 (07:59→20:30)
[2020-01-25] MEDS: SERTRALINE 50MG TABLET PO SCH (07:59)
[2020-01-25 16:25] VITALS: BP 129/88
[2020-01-25 19:56] VITALS: BP 116/77
[2020-01-25] MEDS: DOXEPIN 25 MG CAPSULE PO SCH (20:30)
[2020-01-25] MEDS: OLANZAPINE 5 MG TABLET PO SCH (20:30)
[2020-01-26] MEDS: OMEPRAZOLE 20 MG CAPSULE.DR PO SCH ×2 (06:06→16:12)
[2020-01-26] MEDS: CARVEDILOL 12.5 MG TABLET PO SCH ×2 (06:07→17:45)
[2020-01-26 07:24] VITALS: BP 115/83
[2020-01-26] MEDS: AMLODIPINE 5 MG TABLET PO SCH ×2 (08:13→20:39)
[2020-01-26] MEDS: SERTRALINE 50MG TABLET PO SCH (08:13)
[2020-01-26] MEDS: ACAMPROSATE 333 MG TABLET.DR PO SCH ×3 (08:13→20:39)
[2020-01-26] MEDS ORDERED: ALBUTEROL HFA 90 MCG/SPRAY INH PRN (16:00)
[2020-01-26 19:37] VITALS: BP 132/83
[2020-01-26] MEDS: OLANZAPINE 5 MG TABLET PO SCH (20:38)
[2020-01-26] MEDS: DOXEPIN 25 MG CAPSULE PO SCH (20:39)
[2020-01-26] MEDS: LORazepam 1MG TABLET PO PRN (20:43)
[2020-01-27] MEDS: OMEPRAZOLE 20 MG CAPSULE.DR PO SCH (05:56)
[2020-01-27] MEDS: CARVEDILOL 12.5 MG TABLET PO SCH (05:57)
[2020-01-27 07:00] VITALS: BP 147/104
[2020-01-27] MEDS: ACETAMINOPHEN 325 MG TABLET PO PRN (08:48)
[2020-01-27] MEDS: ACAMPROSATE 333 MG TABLET.DR PO SCH (08:48)
[2020-01-27] MEDS: SERTRALINE 50MG TABLET PO SCH (08:48)
[2020-01-27] MEDS: AMLODIPINE 5 MG TABLET PO SCH (08:48)
[2020-01-27] MEDS ORDERED: HYDR-3341 PO (11:21)
[2020-01-27] MEDS ORDERED: CARV12.52 PO (11:21)
[2020-01-27] MEDS ORDERED: OMEP-110 PO (11:21)
[2020-01-27] MEDS ORDERED: ALBU18HF INH (11:21)
[2020-01-27] MEDS ORDERED: DOXE25CA PO (11:21)
[2020-01-27] MEDS ORDERED: SERT50TA28 PO (11:21)
[2020-01-27] MEDS ORDERED: ACAM333T7 PO (11:21)
[2020-01-27] MEDS ORDERED: AMLO-150 PO (11:21)
[2020-01-27] MEDS ORDERED: OLAN5TAB9 PO (11:21)
== END 2020-01-27 12:40 | disposition home or self-care (01) | DRG 885 ==
LOC: 3E 14:08
PROVIDERS: ADMIT Psychiatry & Neurology Psychosomatic Medicine; ATTEND Psychiatry & Neurology Psychosomatic Medicine
DX: F20.0 Paranoid schizophrenia (principal); F11.20 Opioid dependence, uncomplicated; F15.20 Other stimulant dependence, uncomplicated; F33.2 Major depressive disorder, recurrent severe without psychotic features; R45.851 Suicidal ideations; F10.129 Alcohol abuse with intoxication, unspecified; K27.9 Peptic ulcer, site unspecified, unspecified as acute or chronic, without hemorrhage or perforation; E78.5 Hyperlipidemia, unspecified; F17.200 Nicotine dependence, unspecified, uncomplicated; F80.81 Childhood onset fluency disorder; G47.00 Insomnia, unspecified; I07.1 Rheumatic tricuspid insufficiency; I16.0 Hypertensive urgency; I25.10 Atherosclerotic heart disease of native coronary artery without angina pectoris; I48.91 Unspecified atrial fibrillation; K21.9 Gastro-esophageal reflux disease without esophagitis; Z23 Encounter for immunization; Z79.899 Other long term (current) drug therapy; Z88.8 Allergy status to other drugs, medicaments and biological substances; Z81.8 Family history of other mental and behavioral disorders; Z83.6 Family history of other diseases of the respiratory system; Z82.3 Family history of stroke; Z82.49 Family history of ischemic heart disease and other diseases of the circulatory system; Z80.9 Family history of malignant neoplasm, unspecified
CPT/HCPCS: 36415; 71045; 80061; 81003; 84439; 84443; 85025; 90686; 93005; Q0162

== ENCOUNTER 2020-05-11 13:08 | Emergency (ER) | payer MEDICARE, MEDICAID ==
[~2020-05-11] VITALS: Ht 182.9 cm; Wt 88.3 kg
[~2020-05-11 13:08] MED LIST changes: +ACAM333T7 PO; +ALBU18HF INH; +CHLO10TA2 PO; +DOXE25CA PO; -FOLI-17 PO; +FOLI1TAB32 PO
--- NOTE | 2020-05-11 13:14 | NUR ---
PT BROUGHT IN BY [facility] FOR CHIEF COMPLAINT OF ETOH.
[2020-05-11 13:50] LABS: ALANINE AMINOTRANSFERASE 51 U/L (12-78); ALBUMIN 3.4 g/dL (3.4-5.0); ANION GAP 10 mmol/L (5-15); CALCIUM 8.2 mg/dL (8.5-10.1); CHLORIDE 107 mmol/L (98-107); CREATININE 0.81 mg/dL (0.7-1.3)
[2020-05-11 13:52] LABS: ALKALINE PHOSPHATASE 78 U/L (45-117); BILIRUBIN,TOTAL 0.7 mg/dL (0.2-1.0); TOTAL PROTEIN 8.1 g/dL (6.4-8.2)
[2020-05-11 13:53] LABS: MEAN CORPUSCULAR HEMOGLOBIN 28.3 pg (27.5-34.5); MEAN CORPUSCULAR HGB CONC 32.4 g/dL (33.2-36.2); MEAN PLATELET VOLUME 8.3 fL (7.4-10.4); PLATELET COUNT 204 x10^3/uL (130-400); RED BLOOD COUNT 4.58 x10^6/uL (4.38-5.82); RED CELL DISTRIBUTION WIDTH 16.9 % (9.4-14.8)
[2020-05-11 13:58] LABS: SALICYLATE LEVEL < 1.7 mg/dL (2.8-20.0)
--- NOTE | 2020-05-11 14:02 | NUR ---
BREAK RN- PT RESTING IN BED, CALL LIGHT IN REACH. MEAL PROVIDED
[2020-05-11 14:21] LABS: MD YES
[2020-05-11 14:34] LABS: BASOS#(MANUAL) 0.03 x10^3/uL (0-0.1); BASOS% (MANUAL) 1 % (0-1); EOS#(MANUAL) 0.33 x10^3/uL (0.0-0.4); EOS% (MANUAL) 10 % (1-7); LYMPH#(MANUAL) 1.62 x10^3/uL (1-3.4); LYMPHS% (MANUAL) 49 % (22-44); MONOS#(MANUAL) 0.43 x10^3/uL (0.3-2.7); MONOS% (MANUAL) 13 % (2-9); SEG#(MANUAL) 0.89 x10^3/uL (1.8-6.8); SEGS% (MANUAL) 27 % (42-75)
[2020-05-11 14:37] LABS: <PLATELET ESTIMATE> ADEQUATE; ANISOCYTOSIS 1+; LARGE PLATELETS 1+
--- NOTE | 2020-05-11 16:18 | NUR ---
PT AMBULATED TO EXIT, STEADY GAIT
[2020-05-11 16:23] VITALS: BP 147/86
== END 2020-05-11 16:24 | disposition home or self-care (01) ==
LOC: ED 15:05
DX: F10.129 Alcohol abuse with intoxication, unspecified (principal); I11.0 Hypertensive heart disease with heart failure; I50.9 Heart failure, unspecified; I25.2 Old myocardial infarction; I25.10 Atherosclerotic heart disease of native coronary artery without angina pectoris; Y90.0 Blood alcohol level of less than 20 mg/100 ml
CPT/HCPCS: 36415; 80053; 80143; 80179; 80320; 85025; 99283; G0480

== ENCOUNTER 2020-07-05 20:44 | Emergency (ER) | payer MEDICARE, MEDICAID ==
[~2020-07-05] VITALS: Ht 193 cm; Wt 90.9 kg
[~2020-07-05 20:44] MED LIST changes: +MULT-482 PO; -MULT-750 PO
[2020-07-05 20:47] VITALS: BP 162/115
== END 2020-07-05 23:59 | disposition left against medical advice (07) ==
LOC: ED 22:18
DX: M79.661 Pain in right lower leg (principal); F15.10 Other stimulant abuse, uncomplicated
CPT/HCPCS: 99283

== ENCOUNTER 2020-07-06 08:05 | Emergency (ER) | payer MEDICARE, MEDICAID ==
[~2020-07-06] VITALS: Ht 193 cm; Wt 80.0 kg
--- NOTE | 2020-07-06 08:13 | NUR ---
PT BIBA FROM [facility] FOR C/O THROWING UP BLOOD & ABD PAIN. PER EMS [facility]. 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 PT CHANGED INTO GOWN, PLACED ON ALL MONITORS, CALL LIGHT WITHIN REACH. KAMINI
[2020-07-06 08:51] LABS: BASOPHILS % (AUTO) 1 % (0-1); EOSINOPHILS % (AUTO) 2 % (1-7); LYMPHOCYTES % (AUTO) 26 % (22-44); MEAN CORPUSCULAR HEMOGLOBIN 27.8 pg (27.5-34.5); MEAN CORPUSCULAR HGB CONC 32.4 g/dL (33.2-36.2); MEAN PLATELET VOLUME 8.9 fL (7.4-10.4); MONOCYTES % (AUTO) 9 % (2-9); NEUTROPHILS % (AUTO) 62 % (42-75); PLATELET COUNT 222 x10^3/uL (130-400); RED BLOOD COUNT 4.66 x10^6/uL (4.38-5.82)
[2020-07-06 08:57] LABS: MD NO
[2020-07-06 08:58] LABS: ALANINE AMINOTRANSFERASE 55 U/L (12-78); ALBUMIN 3.6 g/dL (3.4-5.0); ANION GAP 10 mmol/L (5-15); CALCIUM 8.7 mg/dL (8.5-10.1); CHLORIDE 104 mmol/L (98-107); CREATININE 0.73 mg/dL (0.7-1.3)
[2020-07-06 09:00] LABS: ALKALINE PHOSPHATASE 69 U/L (45-117); BILIRUBIN,TOTAL 0.6 mg/dL (0.2-1.0); TOTAL PROTEIN 8.2 g/dL (6.4-8.2)
--- NOTE | 2020-07-06 09:02 | NUR ---
PT UNABLE TO VOID, DESPITE MULTIPLE ATTEMPTS
[2020-07-06 09:03] LABS: SALICYLATE LEVEL < 1.7 mg/dL (2.8-20.0)
[2020-07-06 10:09] VITALS: BP 150/109
--- NOTE | 2020-07-06 10:10 | NUR ---
PT LAYING ON HORTENCIA IGLESIAS/KAMINI. CALL LIGHT WITHIN REACH. NO NEEDS AT THIS TIME
--- NOTE | 2020-07-06 10:30 | NUR ---
PatienT given discharge instructions and they have confirmed that they understand the instructions. Patient ambulatory with steady gait.
== END 2020-07-06 10:35 | disposition home or self-care (01) ==
LOC: ED 08:10
DX: R06.00 Dyspnea, unspecified (principal); I11.0 Hypertensive heart disease with heart failure; I50.9 Heart failure, unspecified; E11.9 Type 2 diabetes mellitus without complications; I25.10 Atherosclerotic heart disease of native coronary artery without angina pectoris; I25.2 Old myocardial infarction; K21.9 Gastro-esophageal reflux disease without esophagitis; J45.909 Unspecified asthma, uncomplicated
CPT/HCPCS: 36415; 71045; 80053; 80299; 80320; 80329; 85025; 93005; 99285; G0480

== ENCOUNTER 2020-07-06 19:01 | Emergency (ER) | payer MEDICAID, MEDICARE ==
[~2020-07-06] VITALS: Ht 185.4 cm; Wt 90.5 kg
[2020-07-06 19:44] LABS: BASOPHILS % (AUTO) 1 % (0-1); EOSINOPHILS % (AUTO) 1 % (1-7); LYMPHOCYTES % (AUTO) 33 % (22-44); MD NO; MEAN CORPUSCULAR HGB CONC 33.3 g/dL (33.2-36.2); MEAN PLATELET VOLUME 8.9 fL (7.4-10.4); MONOCYTES % (AUTO) 9 % (2-9); NEUTROPHILS % (AUTO) 56 % (42-75); PLATELET COUNT 228 x10^3/uL (130-400); RED BLOOD COUNT 4.98 x10^6/uL (4.38-5.82); RED CELL DISTRIBUTION WIDTH 15.8 % (9.4-14.8)
[2020-07-06 19:53] LABS: ALBUMIN 3.8 g/dL (3.4-5.0); ANION GAP 10 mmol/L (5-15); CALCIUM 8.8 mg/dL (8.5-10.1); CHLORIDE 104 mmol/L (98-107)
[2020-07-06 19:56] LABS: ALANINE AMINOTRANSFERASE 61 U/L (12-78); ALKALINE PHOSPHATASE 83 U/L (45-117); BILIRUBIN,TOTAL 0.8 mg/dL (0.2-1.0); CREATININE 0.82 mg/dL (0.7-1.3); TOTAL PROTEIN 8.7 g/dL (6.4-8.2)
--- NOTE | 2020-07-06 22:02 | NUR ---
pt recently seen at [facility] and was discharged, pt then came to [facility] for alcohol detox, pt had no alcohol on blood work, [facility] discharged pt with scripts for BP meds and for Librium, pt did not get scripts filled, saw pt and explaind to pt above scenario, this RN told pt to get scripts filled and that since there is no alcohol in system and pt is not showing signs and symptoms of alcohol withdrawal there was no need to admit him, pt agreed to POC, pt asked for sprite, sprite given
[2020-07-06 22:05] VITALS: BP 160/110
== END 2020-07-06 22:29 | disposition home or self-care (01) ==
LOC: ED 21:54
DX: F10.129 Alcohol abuse with intoxication, unspecified (principal); I11.0 Hypertensive heart disease with heart failure; I50.9 Heart failure, unspecified; Z72.9 Problem related to lifestyle, unspecified; E11.9 Type 2 diabetes mellitus without complications; I25.10 Atherosclerotic heart disease of native coronary artery without angina pectoris; J45.909 Unspecified asthma, uncomplicated; Z87.891 Personal history of nicotine dependence; Y90.0 Blood alcohol level of less than 20 mg/100 ml
CPT/HCPCS: 36415; 80053; 80320; 83690; 85025; 99283; G0480

== ENCOUNTER 2020-07-14 14:41 | Emergency (ER) | payer SELFPAY ==
[~2020-07-14] VITALS: Ht 185.4 cm; Wt 85.0 kg
--- NOTE | 2020-07-14 14:51 | NUR ---
ASSUMED CARE OF PATIENT. PATIENT KENY RODRIGUEZ AFTER BEING FOUND AT THE [facility]. PT IS NOT ABLE TO AMBULATE. PT IS NOT ABLE TO ANSWER ALL TRIAGE QUESTIONS. PT SMELLS OF ETOH. VS STABLE. CALL LIGHT IN PLACE. WILL CONTINUE TO MONITOR.
--- NOTE | 2020-07-14 15:53 | NUR ---
PT WOKE UP AND RIPPED IV OUT. PT REPORTS HE IS LEAVING, THAT HE IS CALLING A CAB AND HE IS NOT STAYING. PT PUT SHOES ON AND AMBULATED SAFELY AROUND ALBERTS. PT IS A&O X4. PT STATES, "YOU CAN'T KEEP ME HERE." DR HITCHCOCK AWARE. PT LEFT.
[2020-07-14 15:54] VITALS: BP 144/96
--- NOTE | 2020-07-14 16:00 | NUR ---
SEVERAL ATTEMPTS TO GET PT BACK IN BED. PT REFUSED. PT REPOTS HE IS TAKING A TAXI HOME AND THAT WE CAN NOT KEEP HIM. DR HITCHCOCK AWARE. PT LEFT.
== END 2020-07-14 16:01 | disposition left against medical advice (07) ==
LOC: EDBD 14:41 → MERGE 15:30 → ED 15:30
DX: F10.120 Alcohol abuse with intoxication, uncomplicated (principal); R11.2 Nausea with vomiting, unspecified; R41.82 Altered mental status, unspecified; Y90.0 Blood alcohol level of less than 20 mg/100 ml
CPT/HCPCS: 99283

== ENCOUNTER 2020-07-15 14:26 | Emergency (ER) | payer MEDICARE ==
[~2020-07-15] VITALS: Ht 182.9 cm; Wt 87.1 kg
--- NOTE | 2020-07-15 14:49 | NUR ---
BELONGINGS X2 BAGS IN SECURE LOCKER.
[2020-07-15 14:59] LABS: BASOPHILS % (AUTO) 1 % (0-1); EOSINOPHILS % (AUTO) 0 % (1-7); LYMPHOCYTES % (AUTO) 40 % (22-44); MEAN CORPUSCULAR HEMOGLOBIN 27.5 pg (27.5-34.5); MEAN CORPUSCULAR HGB CONC 32.5 g/dL (33.2-36.2); MEAN PLATELET VOLUME 8.3 fL (7.4-10.4); MONOCYTES % (AUTO) 10 % (2-9); NEUTROPHILS % (AUTO) 48 % (42-75); PLATELET COUNT 222 x10^3/uL (130-400)
[2020-07-15 15:10] LABS: ALBUMIN 3.4 g/dL (3.4-5.0); ANION GAP 11 mmol/L (5-15); CALCIUM 8.4 mg/dL (8.5-10.1); CHLORIDE 110 mmol/L (98-107); CREATININE 0.81 mg/dL (0.7-1.3)
[2020-07-15 15:12] LABS: SALICYLATE LEVEL < 1.7 mg/dL (2.8-20.0)
--- NOTE | 2020-07-15 16:18 | NUR ---
PT AMBULATING IN ROOM. STEADY GAIT. REQUESTS FOOD
--- NOTE | 2020-07-15 17:53 | NUR ---
PT MOVED TO RM 2. SITTER IN HALLWAY MONITORING FOR SAFETY. MEAL TRAY AND WATER PROVIDED. PT DENIES FURTHER NEEDS AT THIS TIME
--- NOTE | 2020-07-15 17:57 | NUR ---
ASSUMING CARE OF PATIENT AFTER REPORT FROM LILIANA POLANCO. PT SITTING UP IN BED EATING. PROVIDED URINAL FOR UA. PT VERY UNSTEADY ON FEET. .30 BAL. NEEDS TO BE REASSESED FOR SI/HI WHEN SOBER. PT MOVED TO ROOM 2 VIA GURNEY. BELONGINGS VERIFED BY THIS RN
--- NOTE | 2020-07-15 19:06 | NUR ---
report from sarita lamas. pt sleeping in [facility], resp even/unlabored. in line of sight of chris
[2020-07-15 19:59] VITALS: BP 148/94
--- NOTE | 2020-07-15 21:54 | NUR ---
pt provided some sprite per request. pt resting comfortably in [facility] at this time. in line of sight of chris
--- NOTE | 2020-07-15 22:35 | NUR ---
pt states unable to urinate at this time for sample. pt given more water and juice per request
--- NOTE | 2020-07-15 23:28 | NUR ---
pt states that he doesnt want to harm himself, states he was just drunk. pt a/o x4, steady ambulating, unable to get breathilizer, pt refused. spoke to erp, erp at bedside with pt, pt to be discharged
== END 2020-07-16 00:03 | disposition home or self-care (01) ==
LOC: ED 15:34
DX: F32.0 Major depressive disorder, single episode, mild (principal); R45.851 Suicidal ideations; Z72.9 Problem related to lifestyle, unspecified; I25.10 Atherosclerotic heart disease of native coronary artery without angina pectoris; E11.9 Type 2 diabetes mellitus without complications; K21.9 Gastro-esophageal reflux disease without esophagitis; I10 Essential (primary) hypertension; Z86.39 Personal history of other endocrine, nutritional and metabolic disease; F10.120 Alcohol abuse with intoxication, uncomplicated; Y90.0 Blood alcohol level of less than 20 mg/100 ml
CPT/HCPCS: 36415; 80048; 80299; 80320; 80329; 82040; 85025; 99284; G0480

== ENCOUNTER 2020-07-18 21:18 | Emergency (ER) | payer MEDICARE ==
[~2020-07-18] VITALS: Ht 195.6 cm; Wt 92.0 kg
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
--- NOTE | 2020-07-19 00:38 | NUR ---
PT RESTING IN BED, PT ON MONITOR WITH VSS. PT PROVIDED BLANKET
[2020-07-19 01:25] VITALS: BP 150/102
--- NOTE | 2020-07-19 01:27 | NUR ---
REPORT TO TOPHER POLANCO
== END 2020-07-19 01:36 | disposition home or self-care (01) ==
LOC: ED 21:30
DX: F10.120 Alcohol abuse with intoxication, uncomplicated (principal); G31.2 Degeneration of nervous system due to alcohol; Z72.9 Problem related to lifestyle, unspecified; I11.0 Hypertensive heart disease with heart failure; I50.9 Heart failure, unspecified; I25.10 Atherosclerotic heart disease of native coronary artery without angina pectoris; E11.9 Type 2 diabetes mellitus without complications; K21.9 Gastro-esophageal reflux disease without esophagitis; Z87.891 Personal history of nicotine dependence; Y90.0 Blood alcohol level of less than 20 mg/100 ml
CPT/HCPCS: 99283

== ENCOUNTER 2020-07-20 16:45 | Emergency (ER) | payer MEDICARE ==
[~2020-07-20] VITALS: Ht 185.4 cm; Wt 80.0 kg
--- NOTE | 2020-07-20 17:30 | NUR ---
LATE ENTRY FOR 1730: SPO2 INTERMITTENTLY DROPS TO 70% FOR SEVERAL SECONDS THEN BACK UP TO 90% ON ROOM AIR. OXY MASK APPLIED, OXYGEN ADMINISTERED AT 4L/MIN. PT IS MOSTLY SLEEPING, INTERMITTENTLY AWAKES AND PULLS OFF ALL MONITORS. NSR ON OSTOMY NURSE WITH NO ECTOPY. JARED HITCHCOCK NOTIFIED. NOTIFIED PT IS NON-COMPLIANT WITH PUBLIC SAFETY DISPATCHER, REFUSING ORAL TEMP. STATES AXILLARY TEMP IS SUFFICIENT. ATIVAN HELD D/T HYPOXIA AND DROWSINESS. MONITORS REAPPLIED.
[2020-07-20] MEDS ORDERED: LORazepam 2 MG/ML, 1ML ONE (17:48)
[2020-07-20] MEDS ORDERED: LORazepam 2 MG/ML, 1ML IM ONE (18:00)
--- NOTE | 2020-07-20 18:00 | NUR ---
LATE ENTRY FOR 1800: PT ATTEMPTED TO GET OUT OF BED, URINATED ALL OVER FLOOR. PT REDIRECTED INTO BED. URINE CLEANED. ALL MONITORS REAPPLIED. NSR ON LIVE TRUCK OPERATOR WITH NO ECTOPY, SPO2 98-100% ON OXYGEN MASK AT 4L/MIN. SPEECH MORE CLEAR, PT STATES "I JUST WANT TO LIVE, CAN I HAVE A BLANKET?" WARM BLANKET PROVIDED.
--- NOTE | 2020-07-20 18:55 | NUR ---
PT RESTING ON GURNEY, DENIES NEEDS AT THIS TIME.
--- NOTE | 2020-07-20 18:55 | NUR ---
RECEIVED REPORT FORM SHERRI GAYLE
--- NOTE | 2020-07-20 18:59 | NUR ---
REPORT GIVEN AT BEDSIDE TO RN'S JOLENE. PT SLEEPING, RESPS EVEN AND UNLABORED. SPO2 98-100% ON OYXYMASK AT 4L/MIN. ALL MONITORS IN PLACE . PT TO BE DISCHARGED WHEN A&O AND AMBULATORY.
--- NOTE | 2020-07-20 20:00 | NUR ---
PT URINATED ALL OVER [facility] AND THIS RN CLEANED UP PT TO THE BEST OF OUR ABILITY, PT REFUSED TO REMOVE WET CLOTHING
[2020-07-20 20:05] VITALS: BP 137/98
--- NOTE | 2020-07-20 20:40 | NUR ---
Patient given discharge instructions and they have confirmed that they understand the instructions. Patient ambulatory with steady gait. Provided pt with clean and dry clothing and taxi voucher
== END 2020-07-20 20:42 | disposition home or self-care (01) ==
LOC: ED 18:01
DX: F10.220 Alcohol dependence with intoxication, uncomplicated (principal); R41.82 Altered mental status, unspecified; I11.0 Hypertensive heart disease with heart failure; I50.9 Heart failure, unspecified; I25.2 Old myocardial infarction; E11.9 Type 2 diabetes mellitus without complications; Y90.0 Blood alcohol level of less than 20 mg/100 ml; Z87.891 Personal history of nicotine dependence
CPT/HCPCS: 99283

== ENCOUNTER 2020-08-05 21:57 | Emergency (ER) | payer MEDICARE ==
[~2020-08-05] VITALS: Ht 188 cm; Wt 90.9 kg
[~2020-08-05 21:57] MED LIST changes: +OLAN10TA69 PO; -OLAN10TA9 PO; +OLAN5TAB69 PO; -OLAN5TAB9 PO
[2020-08-05 22:01] VITALS: BP 141/98
--- NOTE | 2020-08-05 23:09 | NUR ---
Pt titrated off O2 per protocol, able to matain O2 sats 90-96% while asleep
[2020-08-05] MEDS ORDERED: KETOROLAC 60 MG/2 ML IM ONE (23:30)
[2020-08-05] MEDS ORDERED: KETOROLAC 60 MG/2 ML ONE (23:43)
== END 2020-08-06 00:16 | disposition home or self-care (01) ==
LOC: ED 23:09
DX: G89.11 Acute pain due to trauma (principal); M25.541 Pain in joints of right hand; K21.9 Gastro-esophageal reflux disease without esophagitis; I25.10 Atherosclerotic heart disease of native coronary artery without angina pectoris; I11.0 Hypertensive heart disease with heart failure; I50.9 Heart failure, unspecified; I25.2 Old myocardial infarction; J45.909 Unspecified asthma, uncomplicated; Z87.891 Personal history of nicotine dependence; W18.30XA Fall on same level, unspecified, initial encounter; Y93.89 Activity, other specified; Y92.009 Unspecified place in unspecified non-institutional (private) residence as the place of occurrence of the external cause; Y99.8 Other external cause status
CPT/HCPCS: 73130; 96372; 99283; J1885

== ENCOUNTER 2020-10-11 11:27 | Emergency (ER) | payer MEDICARE ==
[~2020-10-11] VITALS: Ht 180.3 cm; Wt 75.0 kg
[2020-10-11 11:30] VITALS: BP 101/68
--- NOTE | 2020-10-11 11:31 | NUR ---
PT [place] FROM THE STREET, PT FOUND DOWN IN CROSSWALK BY BYSTANDER. PT C/O CP, STATING "MY HEART HURTS" PT AXOX2, ETOH ODOR. PT DENIES ANY OTHER SYMPTOMS AT THIS TIME. MONITORS IN PLACE, CALL LIGHT WITHIN REACH
--- NOTE | 2020-10-11 11:56 | NUR ---
ERP AT BS FOR EVAL
--- NOTE | 2020-10-11 12:00 | NUR ---
XRAY AT BS
--- NOTE | 2020-10-11 12:27 | NUR ---
Patient given discharge instructions and they have confirmed that they understand the instructions. Patient ambulatory with steady gait.
== END 2020-10-11 12:28 | disposition home or self-care (01) ==
LOC: ED 11:42
DX: R07.89 Other chest pain (principal); F10.220 Alcohol dependence with intoxication, uncomplicated; Y90.0 Blood alcohol level of less than 20 mg/100 ml; I10 Essential (primary) hypertension; E11.9 Type 2 diabetes mellitus without complications; K21.9 Gastro-esophageal reflux disease without esophagitis; I25.2 Old myocardial infarction; J45.909 Unspecified asthma, uncomplicated; Z86.39 Personal history of other endocrine, nutritional and metabolic disease
CPT/HCPCS: 71045; 93005; 99283